=== PATIENT | female | born 1955 | race Caucasian/White ===

== ENCOUNTER 2020-03-01 06:04 | Outpatient (REF) | payer OTHER, SELFPAY ==
[2020-03-01 11:28] LABS: MANUAL DIFF FLAG NO
[2020-03-01 11:41] LABS: Basophils Absolute Auto 0.1 X10*3/uL (0.0-0.2); Basophils Percent Auto 0.7 % (0-2); Eosinophils Absolute Auto 0.3 X10*3/uL (0.0-0.4); Eosinophils Percent Auto 3.8 % (0-4); Hematocrit 39.1 % (37-47); Hemoglobin 12.6 g/dl (12.0-16.0); Imm Gran Abs Auto 0.01 X10*3/uL (0.00-0.03); Imm Gran Pct Auto 0.1 % (0.0-0.4); Lymphocytes Absolute Auto 2.4 X10*3/uL (1.2-4.9); Lymphocytes Percent Auto 32.3 % (20-40); Mean Corpuscular HGB Conc 32.2 g/dl (31.0-35.0); Mean Corpuscular Hemoglobin 29.6 pg (27.0-33.0); Mean Platelet Volume 11.2 fL (9.4-12.3); Monocytes Absolute Auto 0.6 X10*3/uL (0.1-1.2); Monocytes Percent Auto 8.2 % (2-11); Neutrophils Percent Auto 54.9 % (45-73); Platelet Count 252 X10*3/uL (160-400); Red Blood Count 4.25 X10*6/uL (4.20-5.50); Red Cell Distribution Width 13.7 % (11.0-16.0); White Blood Count 7.3 X10*3/uL (4.8-10.8)
[2020-03-01 11:55] LABS: Anion Gap 12 (12-20); Blood Urea Nitrogen 24 mg/dL (9-16); Carbon Dioxide 31 mmol/L (22-29); Chloride 102 mmol/L (96-108); Cholesterol 193 mg/dL; Estimated Glomerular Filt Rate > 60; Glucose Fasting 91 mg/dL (60-99); HDL Cholesterol 63 mg/dL; LDL Cholesterol Calculated 116 mg/dl; Potassium 3.8 mmol/l (3.3-5.1); Sodium 141 mmol/L (135-145); Triglycerides 70 mg/dL
[2020-03-01 12:22] LABS: TSH reflex Free T4 0.91 mIU/mL (0.32-4.0)
== END 2020-03-01 06:05 | disposition home or self-care (01) ==
LOC: HO.HMGCLDS 06:04
PROVIDERS: PCP Internal Medicine; Visit Provider Internal Medicine
DX: N32.9 Bladder disorder, unspecified (principal); E03.8 Other specified hypothyroidism; M19.90 Unspecified osteoarthritis, unspecified site; E78.9 Disorder of lipoprotein metabolism, unspecified; I10 Essential (primary) hypertension
CPT/HCPCS: 36415; 80048; 80061; 84443; 85025

== ENCOUNTER 2020-03-08 11:34 | Outpatient (REF) | payer OTHER, SELFPAY ==
[2020-03-08 11:55] LABS: COVID-19 Test Negative (Negative)
== END 2020-03-08 11:35 | disposition home or self-care (01) ==
LOC: HO.EMPCOV 11:34
PROVIDERS: PCP Internal Medicine; Visit Provider Internal Medicine
DX: Z20.828 Contact with and (suspected) exposure to other viral communicable diseases (principal)
CPT/HCPCS: 87635; C9803

== ENCOUNTER 2020-07-24 08:53 | Outpatient (REF) | payer OTHER, SELFPAY ==
--- NOTE | ~2020-07-24 | XR_ITS ---
EXAMINATION: XR ELBOW, RIGHT CLINICAL INFORMATION: Lateral epicondylitis COMPARISON: None TECHNIQUE: AP, lateral, and oblique views of the right elbow. FINDINGS: Bone alignment is normal. No fracture or dislocation is seen. The joint spaces are normal. Soft tissues are normal. XR/XR elbow RT min 3V IMPRESSION: Normal right elbow.
== END 2020-07-24 08:54 | disposition home or self-care (01) ==
LOC: HO.XRAY 08:53
PROVIDERS: PCP Internal Medicine; Visit Provider Physician Assistant Medical
DX: M77.10 Lateral epicondylitis, unspecified elbow (principal)
CPT/HCPCS: 73080

== ENCOUNTER 2020-08-23 11:30 | Outpatient (RCR) | payer OTHER, SELFPAY ==
--- NOTE | 2020-07-27 09:13 | MHC.OT.OEV ---
[address] [phone] F: [phone] Occupational Therapy Evaluation Diagnosis: Right Lateral Epicondylitis Date of Onset: 06/29/20 Attending Provider: Ct Veras PA-C Prescribed Treatment: Eval and Treat History of Current Condition: Pt has developed pain in right lateral and dorsal forearm over the past few weeks. Seen in work connection and referred to OT. X-ray (-) for acute changes. 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 dog, reading, crocheting Living Situation, Family and/or Social Support: Lives with her (retired) Current Level of Function and Occupation Self Care, Employment, Leisure: Still working full duty Pain with spraying hairspray, turning a door knob, lifting a coffee mug Sleep: Occasional pain w/ sleep Pain Assessment Pain Score: 1-4 Pain Scale Used: Numeric (0 - 10) Pain Location and Description: Tenderness to palpate right lateral epicondyle and dorsal forearm over radial tunnel Aggravating Factors: Lifting objects, turning doorway Alleviating Factors: Heat in the morning Ice in the evening Nerve assessment Ulnar Nerve: WFL Median Nerve: WFL Radial Nerve: WFL Comments: Sensory Assessment Temperature: WFL Light Touch: WFL Proprioception: WFL Vibration: Comments: Edema Assessment Upper Extremity: WNL Lower Extremity: Comments: Dexterity Assessment Dexterity: WFL Comments: Special Tests Comments: No significant change in pain with middle finger extension test AROM(PROM) Strength Cervical Cervical Flexion: Cervical Extension: Cervical Lateral Flexion: Cervical Rotation: Comments: WFL Shoulder Flexion: Extension: Abduction: Internal Rotation: External Rotation: Comments: WFL Flexion: Extension: Abduction: Internal Rotation: External Rotation: Comments: Elbow Flexion: Extension: Pronation: Supination: Comments: WFL Flexion: Extension: Pronation: Supination: Comments: Wrist Flexion: Extension: Ulnar Deviation: Radial Deviation: Comments: WFL Flexion: Extension: Ulnar Deviation: Radial Deviation: Comments: Thumb Thumb CMC Flexion: Thumb MCP Flexion: Thumb IP Flexion: Radial Abduction: Palmar Abduction: Stephenson (Kapandji 0-10): Comments: WFL Digits Index MCP: PIP: DIP: Long MCP: PIP: DIP: Ring MCP: PIP: DIP: Small MCP: PIP: DIP: Comments: WFL Gross Grasp: R 20 L 40 Lateral Pinch: R 2 L 3 Two-Point Pinch: R 1 L 2 Three-Jaw Leoncio: R 2 L 3 Comments: Right gross grasp 20lb w/ elbow flex 15lb w/ elbow ext and some pain in lat epi Patient Education Primary Language: Estonian 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 Patient demonstrates Patient verbalizes Barriers to Learning: None Readiness for Learning: Accepting Who was educated? Patient Comments: Plan of Care Assessment: Megan presents with persistent pain in right lateral elbow and dorsal forearm for the past few weeks. 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 She will benefit from cont'd therapy services for decreasing pain, increasing strength and general education on joint protection and activity modification. 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
--- NOTE | 2020-08-23 11:59 | MHC.OT.DC ---
[address] [phone] F: [phone] Occupational Therapy Discharge Note Provider: Dr Andujar Diagnosis: Right Lateral Epicondylitis Date of Surgery: Date of Evaluation: 07/27/20 Date of Discharge: 08/23/20 Treatments to Date: 9 Cancellations to Date: No Shows to Date: Discharge Status: Independent with HEP Recommend MD Follow-up Discharge Summary: Megan has progressed w/ right lateral epicondyle pain and had good understanding of HEP, joint protection and activity modification. Still w/ occasional pain, weakness and reporting moderate functional limitations. She may benefit from cortisone infection. Electronically Signed By: Vira Ojeda OTR/L Reviewed/agree with student documentation: N/A Therapist: Please Sign and return to therapist, thank you for your referral.
== END 2020-08-23 13:49 | disposition other institution (70) ==
LOC: HO.OT 11:30
PROVIDERS: PCP Internal Medicine; Visit Provider Physician Assistant Medical
DX: M77.10 Lateral epicondylitis, unspecified elbow (principal)
CPT/HCPCS: 97033; 97035; 97110; 97140; 97165

== ENCOUNTER 2020-08-24 06:01 | Outpatient (REF) | payer OTHER, SELFPAY ==
[2020-08-24 07:02] LABS: MANUAL DIFF FLAG NO
[2020-08-24 07:05] LABS: Basophils Absolute Auto 0.1 X10*3/uL (0.0-0.2); Basophils Percent Auto 0.6 % (0-2); Eosinophils Absolute Auto 0.3 X10*3/uL (0.0-0.4); Eosinophils Percent Auto 3.3 % (0-4); Hemoglobin 12.7 g/dl (12.0-16.0); Imm Gran Abs Auto 0.02 X10*3/uL (0.00-0.03); Imm Gran Pct Auto 0.3 % (0.0-0.4); Lymphocytes Absolute Auto 2.3 X10*3/uL (1.2-4.9); Lymphocytes Percent Auto 29.8 % (20-40); Mean Corpuscular HGB Conc 32.6 g/dl (31.0-35.0); Mean Corpuscular Hemoglobin 29.5 pg (27.0-33.0); Mean Corpuscular Volume 90.7 fL (80-98); Mean Platelet Volume 11.1 fL (9.4-12.3); Monocytes Absolute Auto 0.6 X10*3/uL (0.1-1.2); Monocytes Percent Auto 8.1 % (2-11); Neutrophils Absolute Auto 4.5 X10*3/uL (2.0-8.3); Neutrophils Percent Auto 57.9 % (45-73); Platelet Count 267 X10*3/uL (160-400); Red Cell Distribution Width 13.6 % (11.0-16.0); White Blood Count 7.8 X10*3/uL (4.8-10.8)
[2020-08-24 07:43] LABS: Alanine Aminotransferase 17 U/L (0-31); Albumin Level 4.2 g/dL (3.5-5.0); Alkaline Phosphatase 50 U/L (39-117); Anion Gap 13 (12-20); Aspartate Amino Transferase 20 U/L (5-31); Bilirubin Total 0.5 mg/dL (0.0-1.0); Blood Urea Nitrogen 19 mg/dL (9-16); Calcium 9.5 mg/dL (8.4-10.2); Carbon Dioxide 30 mmol/L (22-29); Chloride 104 mmol/L (96-108); Cholesterol 197 mg/dL; Estimated Glomerular Filt Rate > 60; Glucose Fasting 92 mg/dL (60-99); HDL Cholesterol 62 mg/dL; LDL Cholesterol Calculated 120 mg/dl; Potassium 3.7 mmol/L (3.3-5.1); Sodium 143 mmol/L (135-145); Total Protein 6.9 g/dL (6.5-8.0); Triglycerides 78 mg/dL
[2020-08-25 06:21] LABS: Lyme Abs Screen <0.90 index
== END 2020-08-24 06:02 | disposition home or self-care (01) ==
LOC: HO.LAB 06:01
PROVIDERS: PCP Internal Medicine; Visit Provider Internal Medicine
DX: I10 Essential (primary) hypertension (principal); E03.8 Other specified hypothyroidism; E78.9 Disorder of lipoprotein metabolism, unspecified; M19.90 Unspecified osteoarthritis, unspecified site; T14.8XXA Other injury of unspecified body region, initial encounter; W57.XXXA Bitten or stung by nonvenomous insect and other nonvenomous arthropods, initial encounter; Y93.9 Activity, unspecified; Y92.9 Unspecified place or not applicable; Y99.9 Unspecified external cause status
CPT/HCPCS: 36415; 80053; 80061; 85025; 86617; 86618

== ENCOUNTER → 2020-09-19 08:18 | Outpatient (BNVA) | payer OTHER, SELFPAY | PROVIDERS: PCP Internal Medicine; Visit Provider Orthopaedic Surgery | DX: M77.11 Lateral epicondylitis, right elbow (principal) | CPT/HCPCS: 20550; 20605; J1020; J1040 ==

== ENCOUNTER 2020-10-05 13:12 | Emergency (ER) | payer OTHER, SELFPAY ==
--- NOTE | ~2020-10-05 | XR_ITS ---
EXAMINATION: XR CHEST CLINICAL INFORMATION: Palpitations COMPARISON: Chest radiographs 06/29/2010 TECHNIQUE: Portable upright AP view of the chest was obtained. FINDINGS: The lungs are clear. The vascularity is normal. The heart is normal in size. There is no vascular congestion, airspace consolidation, or effusion. The hilar and mediastinal contours are normal. No visible acute bony abnormality. Benign nodular contour to right anterior first costochondral junction is stable from prior radiograph 2011. XR/XR chest 1V IMPRESSION: Unremarkable examination.
[2020-10-05 13:23] VITALS: BP 149/78; PULSE 55; RESP 16; TEMP 36.9; O2SAT 99; BMI 31.3
--- NOTE | 2020-10-05 14:12 | ECG_ITS ---
Test Reason : ARM PAIN Blood Pressure : / mmHG Vent. Rate : 047 BPM Atrial Rate : 047 BPM P-R Int : 178 ms QRS Dur : 108 ms QT Int : 474 ms P-R-T Axes : 051 000 004 degrees QTc Int : 419 ms Sinus bradycardia Incomplete right bundle branch block Nonspecific ST and T wave abnormality Abnormal ECG When compared with ECG of 26-DEC-2008 07:12, Nonspecific T wave abnormality, worse in Anterior leads Referred By: Tracy Johnston Electronically Signed By:NEGAR SWARTZ
--- NOTE | 2020-10-05 14:24 | ED_ITS ---
HPI - Arrhythmia/Palpitations General Chief Complaint: Arrhythmia/Palpitations Stated Complaint: palpitations, lt arm pain Time Seen by Provider: 10/05/20 14:11 Source: patient Mode of arrival: ambulatory Limitations: no limitations History of Present Illness HPI narrative: 65 years old female came in from urgent care walk-in clinic for further evaluation of feeling palpitation. Patient felt palpitation 1 time last night that lasted for 5 minutes, also felt choking with the palpitation, symptoms lasted for about 5 minutes, patient declined chest pain or difficulty breathing, patient remained symptoms free since last night. Patient also complained of left arm pain intermittently feels like a dull aching pain not associated with any chest pain, pain in the left mostly when she moves her head. Related Data Home Medications Medication Instructions Recorded Confirmed acetaminophen 500 mg tablet 1,000 mg PO Q6H PRN 02/22/20 10/05/20 rosuvastatin 20 mg tablet 20 mg PO BEDTIME 07/22/20 10/05/20 Previous Rx's Medication Instructions Recorded celecoxib 200 mg capsule 200 mg PO DAILY 90 Days #90 cap 06/20/20 arm brace #1 ea 07/22/20 coenzyme Q10 200 mg capsule 200 mg PO DAILY #90 cap 08/07/20 levothyroxine 150 mcg tablet 150 mcg PO DAILY #90 tab 08/07/20 fluvastatin 20 mg capsule 20 mg PO BEDTIME #90 cap 08/18/20 atenolol 50 mg-chlorthalidone 25 1 tab PO DAILY 90 Days #90 tab 09/11/20 mg tablet Allergies Allergy/AdvReac Type Severity Reaction Status Date / Time rosuvastatin AdvReac Unknown muscles Verified 10/05/20 13:22 cramps Review of Systems Review of Systems: All other systems are reviewed and are negative Constitutional: Reports as per HPI and Reports no additional constitutional complaints Eyes: Reports as per HPI and Reports no additional eye complaints Reports system reviewed and no additional complaints, except as documented Cardiovascular: Reports as per HPI and Reports no additional cardiovascular complaints Respiratory: Reports as per HPI and Reports no additional respiratory complaints Gastrointestinal: Reports as per HPI and Reports no additional gastrointestinal complaints Genitourinary: Reports no additional female genitourinary complaints Musculoskeletal: Reports no additional musculoskeletal complaints Skin/Breast: Reports system reviewed and no additional complaints, except as docu Psychiatric: Reports no additional psychiatric complaints Endocrine: Reports no additional endocrine complaints Hematologic/Lymphatic: Reports no additional hematologic/lymphatic complaints Allergic/Immunologic: Reports no additional allergic/immunologic complaints Reports system reviewed and no additional complaints, except as documented and Reports Abnormal speech present [facility] Past Medical History Medical History Arthrosis Bladder disorder Hypertension, essential Lipid disorder Other specified hypothyroidism Surgical History History of bladder surgery History of tonsillectomy Family History Family History Father HTN (hypertension) CVD (cardiovascular disease) Myocardial infarction Mother HTN (hypertension) Acute pancreatitis Brother No problems noted. Sister No problems noted. Sister No problems noted. Daughter No problems noted. 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 Blood pressure normal. Heart rate normal. Respiration rate normal. Temperature normal. Oxygen saturation normal. Appearance: Alert. Oriented X3. No acute distress. Head: Normal external exam. Normocephalic. Atraumatic. No Kuo signs noted. No raccoon eyes noted Eyes: PERRLA. EOMI. Conjunctiva and sclera normal. Eyelids normal. ENT: TM's Normal. Pharynx normal. Uvula midline. Moist mucous membranes. No trismus noted. No drooling noted. No muffled voice noted. Neck: Normal inspection. Neck supple. FROM. No adenopathy. Thyroid Normal. No meningeal signs. No neck mass noted. CVS: Normal heart rate and rhythm. Heart sound normal. No murmurs noted. Pulses normal throughout. Respiratory: No respiratory distress. Painless inspiration. Breath sounds normal. No wheezes/rales/rhonchi noted. Chest nontender. No accessory muscle usage noted or decreased air movement noted. Abdomen: Soft and nontender. Bowel sounds normal in all 4 quadrants. No distention noted. No organomegaly noted. No visible injury noted. Back: No CVA tenderness. Full range of motion noted. Skin: Skin warm and dry. Normal skin color. Normal skin turgor. No rashes/lesions/lacerations noted. Extremities: No lower extremity edema. Extremities exhibit normal range of motion. Extremities nontender. Neuro: Oriented X 3. No motor deficit. No sensory deficit. Reflexes normal. Course Course Course Narrative: 65 years old female came in for 1 time palpitation last time with no chest pain and shocking feeling with this episode of palpitation. Patient now is symptoms free since last night, EKG showed bradycardia patient has no symptoms of syncope or dizziness ( patient take atenolol 50 mg for hypertension). We assured the patient discharged to with PCP. MDM - Arrhythmia/Palpitations Lab Data Attestation: I reviewed the patient's lab results. Result diagrams: 10/05/20 14:34 10/05/20 14:34 Labs: Lab Results 10/05/20 10/05/20 10/05/20 Range/Units 14:34 14:34 14:34 WBC 7.0 (4.8-10.8) X10*3/uL RBC 4.28 (4.20-5.50) X10*6/uL Hgb 12.8 (12.0-16.0) g/dl Hct 38.3 (37-47) % MCV 89.5 (80-98) fL MCH 29.9 (27.0-33.0) pg MCHC 33.4 (31.0-35.0) g/dl RDW 13.7 (11.0-16.0) % Plt Count 247 (160-400) X10*3/uL MPV 10.7 (9.4-12.3) fL Immature Gran % (Auto) 0.1 (0.0-0.4) % Neut % (Auto) 55.2 (45-73) % Lymph % (Auto) 33.9 (20-40) % [place] % (Auto) 8.3 (2-11) % Eos % (Auto) 1.9 (0-4) % Baso % (Auto) 0.6 (0-2) % Lymph # (Auto) 2.4 (1.2-4.9) X10*3/uL [place] # (Auto) 0.6 (0.1-1.2) X10*3/uL Eos # (Auto) 0.1 (0.0-0.4) X10*3/uL Baso # (Auto) 0.0 (0.0-0.2) X10*3/uL Abs Immat Gran (auto) 0.01 (0.00-0.03) X10*3/uL Absolute Neuts (auto) 3.9 (2.0-8.3) X10*3/uL Absolute Nucleated RBC 0.000 (0.0-0.012) X10*3/uL Nucleated RBC % (auto) 0.0 (0.0-0.2) /100WBC Sodium 141 (135-145) mmol/L Potassium 3.6 (3.3-5.1) mmol/L Chloride 103 (96-108) mmol/L Carbon Dioxide 26 (22-29) mmol/L Anion Gap 16 (12-20) BUN 19 H (9-16) mg/dL Creatinine 0.75 (0.5-1.4) mg/dL Estim Creat Clear Calc 86.4 Estimated GFR > 60 Random Glucose 93 (60-115) mg/dL Calcium 10.3 H D (8.4-10.2) mg/dL Magnesium 1.9 (1.6-2.6) mg/dL Total Bilirubin 0.5 (0.0-1.0) mg/dL Direct Bilirubin 0.2 (0.0-0.5) mg/dL AST 20 (5-31) U/L ALT 15 (0-31) U/L Alkaline Phosphatase 49 (39-117) U/L Troponin I High Sens 4.5 (<3.5-17.0) ng/L B-Natriuretic Peptide 106 H (<100) pg/mL Total Protein 7.0 (6.5-8.0) g/dL Albumin 4.2 (3.5-5.0) g/dL Lipase 35 (8-78) U/L Imaging Data Chest x-ray: Radiologist's impression: Unremarkable examination. ECG Data Interpretation: Sinus bradycardia at 47 beats per minutes, incomplete right bundle branch block, slight prolongation of QRS, nonspecific T-wave inversions. Discharge Plan Discharge Clinical Impression: Palpitation, Bradycardia Patient Disposition: Home, Self-Care Instructions: Heart Palpitations (ED) Prescriptions: No Action acetaminophen [Tylenol Extra Strength] 500 mg tablet 1,000 mg PO Q6H PRNRF: 0 coenzyme Q10 200 mg capsule 200 mg PO DAILY Qty: 90 RF: 2 levothyroxine 150 mcg tablet 150 mcg PO DAILY Qty: 90 RF: 3 fluvastatin 20 mg capsule 20 mg PO BEDTIME Qty: 90 RF: 1 atenolol-chlorthalidone 50-25 mg tablet 1 tab PO DAILY 90 Days Qty: 90 RF: 1 celecoxib 200 mg capsule 200 mg PO DAILY 90 Days Qty: 90 RF: 0 rosuvastatin 20 mg tablet 20 mg PO BEDTIME RF: 0 (DME) Elbow Strap Misc See Rx Instructions .ROUTE .MEDSUPPLY Qty: 1 RF: 0 Referrals: Sofya Andujar MD [Primary Care Provider] - 2 days
[2020-10-05 14:36] VITALS: PULSE 51; RESP 17; O2SAT 98
[2020-10-05 14:40] VITALS: PULSE 49
[2020-10-05 14:44] VITALS: PULSE 49
[2020-10-05 14:49] LABS: MANUAL DIFF FLAG NO
[2020-10-05 14:51] LABS: Basophils Percent Auto 0.6 % (0-2); Eosinophils Absolute Auto 0.1 X10*3/uL (0.0-0.4); Eosinophils Percent Auto 1.9 % (0-4); Hematocrit 38.3 % (37-47); Hemoglobin 12.8 g/dl (12.0-16.0); Imm Gran Abs Auto 0.01 X10*3/uL (0.00-0.03); Imm Gran Pct Auto 0.1 % (0.0-0.4); Lymphocytes Absolute Auto 2.4 X10*3/uL (1.2-4.9); Lymphocytes Percent Auto 33.9 % (20-40); Mean Corpuscular HGB Conc 33.4 g/dl (31.0-35.0); Mean Corpuscular Hemoglobin 29.9 pg (27.0-33.0); Mean Corpuscular Volume 89.5 fL (80-98); Mean Platelet Volume 10.7 fL (9.4-12.3); Monocytes Absolute Auto 0.6 X10*3/uL (0.1-1.2); Monocytes Percent Auto 8.3 % (2-11); Neutrophils Absolute Auto 3.9 X10*3/uL (2.0-8.3); Neutrophils Percent Auto 55.2 % (45-73); Platelet Count 247 X10*3/uL (160-400); Red Blood Count 4.28 X10*6/uL (4.20-5.50); Red Cell Distribution Width 13.7 % (11.0-16.0)
[2020-10-05 15:20] LABS: Alanine Aminotransferase 15 U/L (0-31); Albumin Level 4.2 g/dL (3.5-5.0); Alkaline Phosphatase 49 U/L (39-117); Anion Gap 16 (12-20); Aspartate Amino Transferase 20 U/L (5-31); Bilirubin Direct 0.2 mg/dL (0.0-0.5); Bilirubin Total 0.5 mg/dL (0.0-1.0); Blood Urea Nitrogen 19 mg/dL (9-16); Calcium 10.3 mg/dL (8.4-10.2); Carbon Dioxide 26 mmol/L (22-29); Chloride 103 mmol/L (96-108); Creatinine Clr Calc Pharmacy 86.4; Estimated Glomerular Filt Rate > 60; Glucose Random 93 mg/dL (60-115); Lipase 35 U/L (8-78); Magnesium 1.9 mg/dL (1.6-2.6); Potassium 3.6 mmol/L (3.3-5.1); Sodium 141 mmol/L (135-145)
[2020-10-05 15:25] LABS: B Type Natriuretic Peptide 106 pg/mL (<100); Troponin-I High Sensitivity 4.5 ng/L (<3.5-17.0)
[2020-10-05 15:40] VITALS: BP 131/60; PULSE 49; RESP 17; O2SAT 98
== END 2020-10-05 15:55 | disposition home or self-care (01) ==
PROVIDERS: Emergency Provider Emergency Medicine; PCP Internal Medicine
DX: R00.2 Palpitations (principal); R00.1 Bradycardia, unspecified; I10 Essential (primary) hypertension; E78.5 Hyperlipidemia, unspecified; Z79.02 Long term (current) use of antithrombotics/antiplatelets; Z79.899 Other long term (current) drug therapy
CPT/HCPCS: 36415; 71045; 80048; 80076; 83690; 83735; 83880; 84484; 85025; 93005; 99283; 99285

== ENCOUNTER 2021-03-29 06:44 | Outpatient (REF) | payer MEDICARE, SELFPAY ==
[2021-03-29 11:49] LABS: Alanine Aminotransferase 29 U/L (0-31); Albumin Level 4.1 g/dL (3.5-5.0); Alkaline Phosphatase 60 U/L (39-117); Anion Gap 10 (12-20); Aspartate Amino Transferase 25 U/L (5-31); Bilirubin Total 0.6 mg/dL (0.0-1.0); Blood Urea Nitrogen 17 mg/dL (9-16); Calcium 9.2 mg/dL (8.4-10.2); Carbon Dioxide 27 mmol/L (22-29); Chloride 107 mmol/L (96-108); Cholesterol 220 mg/dL; Estimated Glomerular Filt Rate > 60; Glucose Fasting 90 mg/dL (60-99); HDL Cholesterol 64 mg/dL; LDL Cholesterol Calculated 140 mg/dl; Potassium 4.4 mmol/L (3.3-5.1); Sodium 140 mmol/L (135-145); Total Protein 7.1 g/dL (6.5-8.0); Triglycerides 83 mg/dL
== END 2021-03-29 06:45 | disposition home or self-care (01) ==
LOC: HO.HMGCLDS 06:44
PROVIDERS: PCP Internal Medicine; Visit Provider Internal Medicine
DX: E03.8 Other specified hypothyroidism (principal); E78.9 Disorder of lipoprotein metabolism, unspecified; I10 Essential (primary) hypertension
CPT/HCPCS: 36415; 80053; 80061; 84443

== ENCOUNTER → 2021-04-13 11:41 | Outpatient (BNVA) | payer MEDICARE, SELFPAY | PROVIDERS: PCP Internal Medicine; Visit Provider Orthopaedic Surgery | DX: M77.11 Lateral epicondylitis, right elbow (principal); M25.562 Pain in left knee | CPT/HCPCS: 20551; 20610; 99212; J1100 ==

== ENCOUNTER 2021-07-14 09:29 | Emergency (ER) | payer MEDICARE, SELFPAY ==
--- NOTE | ~2021-07-14 | XR_ITS ---
EXAMINATION: XR KNEE, RIGHT CLINICAL INFORMATION: Knee pain COMPARISON: None TECHNIQUE: Four views of the right knee. FINDINGS: Bones have normal alignment at the right knee. No fracture, subluxation or joint effusion. Mild narrowing of joint space and marginal osteophyte formation of medial tibiofemoral compartment. Osteophytes also observed at the mildly degenerated patellofemoral and lateral tibiofemoral compartments. XR/XR knee RT 4V IMPRESSION: * No acute findings. No fracture or malalignment at the right knee. * Mild tricompartmental osteoarthritis.
[2021-07-14 09:34] VITALS: BP 197/94; PULSE 79; RESP 18; TEMP 36.8; O2SAT 98; BMI 34.4
--- NOTE | 2021-07-14 09:52 | ED.EXTPRO ---
HPI - Extremity Problem General Chief complaint: Extremity Problem Stated complaint: r knee pain no inj Time Seen by Provider: 07/14/21 09:44 Source: patient Mode of arrival: ambulatory History of Present Illness HPI Narrative: 65-year-old female with a past medical history of HLD, HTN, hypothyroid, presenting to the ED complaining of atraumatic right knee pain x1 week. Reports pain worse with movement, bending, and ambulation. Denies known injury/trauma or fall/twisting injury. Denies numbness, tingling, weakness, fever, chills MD Complaint: extremity pain Onset (ago): week(s) Pain Consistency: constant Location: right Related Data Home Medications Medication Instructions Recorded Confirmed acetaminophen 500 mg tablet 1,000 mg PO Q6H PRN 02/22/20 03/27/21 (Tylenol Extra Strength) Previous Rx's Medication Instructions Recorded arm brace (Elbow Strap) #1 ea 07/22/20 coenzyme Q10 200 mg capsule 200 mg PO DAILY #90 cap 08/07/20 fluvastatin 20 mg capsule 20 mg PO BEDTIME #90 cap 02/02/21 levothyroxine 150 mcg tablet 150 mcg PO DAILY #90 tab 02/02/21 losartan 50 mg tablet 50 mg PO DAILY 90 Days #90 tab 02/02/21 celecoxib 200 mg capsule (Celebrex) 200 mg PO ONCE 90 Days #90 cap 03/27/21 hydrocodone 5 mg-acetaminophen 325 1 tab PO Q8H PRN 3 Days #7 tab 07/14/21 mg tablet Allergies Allergy/AdvReac Type Severity Reaction Status Date / Time rosuvastatin AdvReac Unknown muscles Verified 07/14/21 09:37 cramps Review of Systems Review of Systems: Constitutional: No Fever, No Chills ENT/Mouth: No Ear Pain, No Nasal Congestion, No sore throat, No Rhinorrhea, No Swallowing Difficulty Cardiovascular: No Chest Pain, No SOB Respiratory: No Cough, No Sputum Gastrointestinal: No Nausea, No Abdominal pain Genitourinary: No Dysuria, No Urinary Frequency, No Hematuria, No Urgency, No Flank Pain Musculoskeletal: + joint pain, No Myalgias, No Joint Swelling Skin: No Skin Lesions, No rash Neuro: No Weakness, No Numbness, No Paresthesias Yes all other systems are reviewed and are negative PMFSH Past Medical History Attestation statement: The following information was validated with the patient. Medical History Arthrosis Bladder disorder Hypertension, essential Lipid disorder Other specified hypothyroidism Surgical History History of bladder surgery History of tonsillectomy Family History Family History Father HTN (hypertension) CVD (cardiovascular disease) Myocardial infarction Mother HTN (hypertension) Acute pancreatitis Brother No problems noted. Sister No problems noted. Sister No problems noted. Daughter No problems noted. 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 Physical Exam Vital Signs: Vital Signs: Last Vital Signs Temp 98.2 F 07/14/21 09:34 Pulse 79 07/14/21 09:34 Resp 18 07/14/21 10:40 BP 197/94 H 07/14/21 09:34 Pulse Ox 98 07/14/21 09:34 BMI result Body Mass Index 34.4 Const: General: cooperative and healthy appearing Orientation/consciousness: patient oriented x3 Limitations: no limitations HEENT: Head: Yes normal to inspection Ears: hearing grossly normal bilaterally General nose exam: Normal external nose present Face and sinus: Yes normal facial exam Eyes: General: appearance normal, both eyes and all related structures EOM: EOMs intact bilaterally Neck: Neck: Yes normal visual inspection Resp: Effort & Inspection: normal respiratory effort and no respiratory distress Auscultation: clear to auscultation bilaterally Cardio: Rate: regular rate Heart sounds: S1 normal heart sound present and S2 normal heart sound present Peripheral pulses: dorsalis pedis present Skin: Rashes: no rashes Wounds: no wounds Neuro: General: patient oriented x3 Gait exam (Neuro): Normal gait present Extrem: Other: Right knee without noted deformity, no swelling. No tenderness appreciated without moving knee. Tenderness elicited on flexion and varus stress. Neurovascular intact distally. Flexion limited secondary to pain. Extension intact. General: Yes normal to inspection Course Course Course Narrative: XR knee RT 4V IMPRESSION: *? No acute findings. No fracture or malalignment at the right knee. *? Mild tricompartmental osteoarthritis. ? >> results discussed with patient. Knee immobilizer applied for comfort and stability. Patient recommended to follow-up with orthopedics MDM - Extremity (Nontraumatic) MDM Narrative Medical decision making narrative: 65-year-old female with a past medical history of HLD, HTN, hypothyroid, presenting to the ED complaining of atraumatic right knee pain x1 week. On exam vital signs stable, NAD/nontoxic, physical exam as above. Concern for meniscal vs tendon or ligamental injury. Lower concern for fracture Plan: X-rays, IM Toradol, Tylenol Medical Records Attestation: I reviewed the patient's medical records. Lab Data Attestation: I reviewed the patient's lab results. Discharge Plan Discharge Clinical Impression: Acute knee pain Qualifiers: Laterality: right Qualified Code(s): M25.561 - Pain in right knee Patient Disposition: Home, Self-Care Instructions: Arthralgia (ED) Additional Instructions: Your x-ray does not show any acute findings, no fracture. Does show some osteoarthritis. Wear Luis Carlos wrap at home for comfort and stability. Continue taking Celecoxib which as an anti-inflammatory / pain medication, take with food In addition take Tylenol at home You need to follow-up with the forestry biology specialist wear Luis Carlos wrap for comfort and stability [place] is an opiate pain medication, take only when pain is severe for the next [address], drink alcohol, or operate machinery while taking. Be aware [place] has Tylenol mixed in, do not exceed 4 g of Tylenol in 1 day If symptoms persist or worsen, pain becomes unbearable, you developed weakness return to the ED Prescriptions: New hydrocodone-acetaminophen 5-325 mg tablet 1 tab PO Q8H PRN (Reason: pain, severe) 3 Days Qty: 7 0RF No Action acetaminophen [Tylenol Extra Strength] 500 mg tablet 1,000 mg PO Q6H PRN0RF coenzyme Q10 200 mg capsule 200 mg PO DAILY Qty: 90 2RF losartan 50 mg tablet 50 mg PO DAILY 90 Days Qty: 90 1RF levothyroxine 150 mcg tablet 150 mcg PO DAILY Qty: 90 3RF fluvastatin 20 mg capsule 20 mg PO BEDTIME Qty: 90 1RF (DME) Elbow Strap Misc See Rx Instructions .ROUTE .MEDSUPPLY Qty: 1 0RF Rx Instructions: As directed celecoxib [Celebrex] 200 mg capsule 200 mg PO ONCE 90 Days Qty: 90 1RF Referrals: Gracie Fisher PA-C [Physician [place] Machine Operator] - 5 days Interventions: ED Discharge Assessment Last Done: 07/14/21 10:41
[2021-07-14] MEDS: Acetaminophen 325 MG TABLET 650 MG PO (09:53)
[2021-07-14] MEDS: Ketorolac Tromethamine 30 MG/ML VIAL IM (09:54)
[2021-07-14 10:40] VITALS: RESP 18
== END 2021-07-14 10:55 | disposition home or self-care (01) ==
PROVIDERS: Emergency Provider Emergency Medicine; PCP Internal Medicine
DX: M25.561 Pain in right knee (principal); I10 Essential (primary) hypertension
CPT/HCPCS: 73564; 96372; 99284; J1885

== ENCOUNTER 2021-07-27 06:01 | Outpatient (REF) | payer MEDICARE, SELFPAY ==
[2021-07-27 11:10] LABS: MANUAL DIFF FLAG NO
[2021-07-27 11:30] LABS: Basophils Absolute Auto 0.1 X10*3/uL (0.0-0.2); Basophils Percent Auto 0.8 % (0-2); Eosinophils Absolute Auto 0.2 X10*3/uL (0.0-0.4); Eosinophils Percent Auto 3.9 % (0-4); Hematocrit 40.5 % (37.0-47.0); Imm Gran Abs Auto 0.01 X10*3/uL (0.00-0.03); Imm Gran Pct Auto 0.2 % (0.0-0.4); Lymphocytes Absolute Auto 1.7 X10*3/uL (1.2-4.9); Lymphocytes Percent Auto 27.8 % (20-40); Mean Corpuscular HGB Conc 32.1 g/dl (31.0-35.0); Mean Corpuscular Hemoglobin 28.8 pg (27.0-33.0); Mean Corpuscular Volume 89.8 fL (80.0-98.0); Mean Platelet Volume 11.1 fL (9.4-12.3); Monocytes Absolute Auto 0.5 X10*3/uL (0.1-1.2); Monocytes Percent Auto 7.7 % (2-11); Neutrophils Absolute Auto 3.5 x10*3/uL (2.0-8.3); Neutrophils Percent Auto 59.6 % (45-73); Platelet Count 278 X10*3/uL (160-400); Red Blood Count 4.51 X10*6/uL (4.20-5.50); Red Cell Distribution Width 13.8 % (11.0-16.0); White Blood Count 5.9 X10*3/uL (4.8-10.8)
[2021-07-27 11:59] LABS: Alanine Aminotransferase 15 U/L (0-31); Albumin Level 4.2 g/dL (3.5-5.0); Alkaline Phosphatase 61 U/L (39-117); Anion Gap 10 (12-20); Aspartate Amino Transferase 18 U/L (5-31); Bilirubin Total 0.6 mg/dL (0.0-1.0); Blood Urea Nitrogen 16 mg/dL (9-16); Calcium 9.6 mg/dL (8.4-10.2); Carbon Dioxide 28 mmol/L (22-29); Chloride 106 mmol/L (96-108); Cholesterol 207 mg/dL; Estimated Glomerular Filt Rate > 60; Glucose Fasting 88 mg/dL (60-99); HDL Cholesterol 59 mg/dL; LDL Cholesterol Calculated 125 mg/dl; Potassium 3.9 mmol/L (3.3-5.1); Sodium 140 mmol/L (135-145); Total Protein 7.1 g/dL (6.5-8.0); Triglycerides 118 mg/dL
[2021-07-27 12:59] LABS: TSH reflex Free T4 0.61 uIU/mL (0.32-4.0)
[2021-08-01 11:07] LABS: Vitamin D 25-OH, D2 <4 ng/mL; Vitamin D 25-OH, D3 27 ng/mL; Vitamin D 25-OH, Total 27 ng/mL (30-100)
== END 2021-07-27 06:02 | disposition home or self-care (01) ==
LOC: HO.HMGCLDS 06:01
PROVIDERS: Visit Provider Internal Medicine
DX: E03.8 Other specified hypothyroidism (principal); E66.01 Morbid (severe) obesity due to excess calories; E78.9 Disorder of lipoprotein metabolism, unspecified; I10 Essential (primary) hypertension; S89.91XA Unspecified injury of right lower leg, initial encounter
CPT/HCPCS: 36415; 80053; 80061; 82306; 84443; 85025

== ENCOUNTER 2021-08-17 07:11 | Outpatient (REF) | payer MEDICARE, SELFPAY ==
--- NOTE | ~2021-08-17 | XR_ITS ---
EXAMINATION: XR KNEE AP STANDING CLINICAL INFORMATION: Pain. COMPARISON: None TECHNIQUE: AP bilateral standing view of the knees was obtained. Single patellofemoral/sunrise view of the right patella was also obtained. FINDINGS: Bilateral knees: Frontal view only views of both knees shows decrease joint space, subchondral sclerosis and osteophyte formation bilaterally, consistent with moderate osteoarthrosis. The patellofemoral view of the right knee shows no significant osteoarthrosis and alignment is intact.. XR/XR knee standing BI IMPRESSION: Bilateral moderate medial compartmental osteoarthrosis.
--- NOTE | ~2021-08-17 | XR_ITS ---
EXAMINATION: XR KNEE AP STANDING CLINICAL INFORMATION: Pain. COMPARISON: None TECHNIQUE: AP bilateral standing view of the knees was obtained. Single patellofemoral/sunrise view of the right patella was also obtained. FINDINGS: Bilateral knees: Frontal view only views of both knees shows decrease joint space, subchondral sclerosis and osteophyte formation bilaterally, consistent with moderate osteoarthrosis. The patellofemoral view of the right knee shows no significant osteoarthrosis and alignment is intact.. XR/XR knee RT 1V IMPRESSION: Bilateral moderate medial compartmental osteoarthrosis.
== END 2021-08-17 07:12 | disposition home or self-care (01) ==
LOC: HO.HOSX 07:11
PROVIDERS: Visit Provider Physician Assistant
DX: M71.21 Synovial cyst of popliteal space [Baker], right knee (principal)
CPT/HCPCS: 20610; 73560; 73565; 99202; J1040

== ENCOUNTER → 2021-10-17 11:17 | Outpatient (BNVA) | payer MEDICARE, SELFPAY | PROVIDERS: PCP Internal Medicine; Visit Provider Physician Assistant | DX: M17.11 Unilateral primary osteoarthritis, right knee (principal) | CPT/HCPCS: 99212 ==

== ENCOUNTER 2022-03-04 06:33 | Outpatient (REF) | payer MEDICARE, SELFPAY ==
[2022-03-04 12:19] LABS: Alanine Aminotransferase 17 U/L (0-31); Albumin Level 4.3 g/dL (3.5-5.0); Alkaline Phosphatase 68 U/L (39-117); Anion Gap 10 (12-20); Aspartate Amino Transferase 17 U/L (5-31); Bilirubin Total 0.6 mg/dL (0.0-1.0); Blood Urea Nitrogen 18 mg/dL (9-16); Calcium 9.6 mg/dL (8.4-10.2); Carbon Dioxide 29 mmol/L (22-29); Chloride 107 mmol/L (96-108); Cholesterol 207 mg/dL; Estimated Glomerular Filt Rate > 60; Glucose Fasting 86 mg/dL (60-99); HDL Cholesterol 59 mg/dL; LDL Cholesterol Calculated 125 mg/dl; Potassium 4.2 mmol/L (3.3-5.1); Sodium 142 mmol/L (135-145); TSH reflex Free T4 0.13 uIU/mL (0.32-4.0); Total Protein 7.1 g/dL (6.5-8.0); Triglycerides 117 mg/dL
== END 2022-03-04 06:34 | disposition home or self-care (01) ==
LOC: HO.HMGCLDS 06:33
PROVIDERS: PCP Internal Medicine; Visit Provider Internal Medicine
DX: E03.8 Other specified hypothyroidism (principal); I10 Essential (primary) hypertension; E78.9 Disorder of lipoprotein metabolism, unspecified; E66.09 Other obesity due to excess calories; M17.11 Unilateral primary osteoarthritis, right knee
CPT/HCPCS: 36415; 80053; 80061; 84439; 84443

== ENCOUNTER 2022-04-19 12:35 | Outpatient (REF) | payer MEDICARE, SELFPAY ==
[2022-04-19 15:10] LABS: TSH reflex Free T4 0.32 uIU/mL (0.32-4.0)
== END 2022-04-19 12:36 | disposition home or self-care (01) ==
LOC: HO.HMGCLDS 12:35
PROVIDERS: PCP Internal Medicine; Visit Provider Internal Medicine
DX: E03.8 Other specified hypothyroidism (principal)
CPT/HCPCS: 36415; 84443

== ENCOUNTER 2022-04-23 09:49 | Outpatient (REF) | payer MEDICARE, SELFPAY ==
--- NOTE | ~2022-04-23 | XR_ITS ---
EXAMINATION: XR LUMBOSACRAL SPINE CLINICAL INFORMATION: Dorsalgia COMPARISON: 11/15/2014 TECHNIQUE: Three views of the lumbosacral spine. FINDINGS: No acute fracture or subluxation. Vertebral body height and alignment maintained from prior. There is grade 1 anterolisthesis of L2 on L3. Progressive disc space narrowing at this level. There is also mild narrowing of the L5-S1 disc space with grade 1 anterolisthesis. Facet arthropathy throughout. Small endplate osteophytes. The sacroiliac joints are symmetric. The visualized sacrum is intact. Normal bowel gas pattern. XR/XR lumbar spine 2-3V IMPRESSION: Mild to moderate degenerative changes of the lumbar spine which have progressed from the previous study. No acute abnormality.
[2022-04-23 11:23] LABS: Appearance Urine Clear; Color Urine Yellow; Glucose Urine UA Negative (Negative); Leukocyte Esterase Urine Negative (Negative); Nitrite Urine Negative (Negative); PH 5.5 (5.0-9.0); Urine Blood Negative (Negative); Urine Ketones Negative (Negative); Urine Protein Negative (Neg-Trace)
== END 2022-04-23 09:50 | disposition home or self-care (01) ==
LOC: HO.HMGCX 09:49
PROVIDERS: PCP Internal Medicine; Visit Provider Nurse Practitioner Family
DX: M54.9 Dorsalgia, unspecified (principal); R10.9 Unspecified abdominal pain
CPT/HCPCS: 72100; 81003

== ENCOUNTER 2022-10-16 13:39 | Outpatient (AMB) | payer MEDICARE, SELFPAY ==
[2022-10-16 13:47] VITALS: BP 142/86; PULSE 68; O2SAT 95; BMI 33.9
--- NOTE | 2022-10-16 13:47 | MHC.PC.OV ---
Vital Signs 10/16/22 13:47 Height 5 ft 7 in Weight 216 lb 6 oz BMI 33.9 BP 142/86 H Blood Pressure Location Rt brachial Position Sitting Pulse 68 Pulse Source Pulse Oximeter Pulse Oximetry (%) 95 Oxygen Delivery Method Room Air Intake Visit Reasons: 3 month follow up Allergies rosuvastatin Adverse Reaction (Unknown, Verified 10/16/22 13:47) muscles cramps Medication List - Last Reconciled 10/16/22 by Sofya Andujar MD acetaminophen (Tylenol Extra Strength) 1,000 mg PO Q6H PRN atenolol 50 mg PO DAILY 90 days celecoxib (Celebrex) 200 mg PO ONCE 90 days coenzyme Q10 200 mg PO DAILY fluvastatin 20 mg PO BEDTIME levothyroxine 137 mcg PO DAILY 90 days losartan 50 mg PO BID 90 days tizanidine 2 mg PO BEDTIME PRN 30 days tramadol 50 mg PO BEDTIME PRN 30 days Tobacco use date assessed: 10/16/22 Fall risk assessment: No Falls in past year Last assessed Fall Risk: 10/16/22 Dental Screening Dental Screen Date: 10/16/22 Did you have a dental visit in the last 12 months?: Yes Did you have a dental problem in the last 6 months where you did not have access to dental care?: No Was dental information given to patient?: No HPI 3 month follow up HPI Details Patient is 67-year-old female came in today for her regular follow-up appointment I prescribed tramadol 50 mg and Tizenadin last visit for back pain and knee pain patient is doing much better taking tramadol I have sent refill for her She is only taking it as needed I have sent 45 tablet for 90 days Patient is currently seeing [facility] and had a cortisone injection which did not help her She had an MRI of lumbar spine which showed moderate spinal stenosis Patient is taking Celebrex as well Patient says that the most difficult time is in the morning when she wakes up it is very painful for couple of hours. Pain is nonradiating. Hypertension: Patient is currently taking losartan 50 mg b.i.d. once a day and atenolol 50 mg blood pressure is well controlled I have told her to start monitoring and logging blood pressure at home it is slightly elevated today at 142/86 Hypothyroidism: Continue levothyroxine dose to 137 TSH level is due Last time patient had labs was March of this year Lipid disorder:? Patient is on fluvastatin 20 mg she is to continue that.? No side effects BMI is elevated need to lose weight. Follow-up 3 months [facility] Medical History Arthrosis Bladder disorder Hypertension, essential Lipid disorder Other specified hypothyroidism Surgical History History of bladder surgery History of tonsillectomy Family History Father HTN (hypertension) CVD (cardiovascular disease) Myocardial infarction Mother HTN (hypertension) Acute pancreatitis Brother No problems noted. Sister No problems noted. Sister No problems noted. Daughter No problems noted. 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 Benson Wilkerson, Kasey Harvey, Jeremy Rasmussen and colleagues, with an educational lakeisha from [employer]. Review of Systems Const Denies chills and Denies fever(s) ENT Denies epistaxis and Denies nasal discharge Card Denies chest pain Resp Denies chest congestion, Denies cough and Denies hemoptysis GI Denies diarrhea and Denies nausea Skin/Breast Denies rash Neuro Reports no additional complaints Psych Reports no additional complaints Endo Reports no additional complaints Physical exam (Primary Care) Vital Signs: Last Vital Signs Pulse 68 10/16/22 13:47 BP 142/86 H 10/16/22 13:47 Pulse Ox 95 10/16/22 13:47 Oxygen Delivery Method Room Air 10/16/22 13:47 BMI result Body Mass Index 33.9 Tobacco/Smoking Status: Tobacco use Status Tobacco use date assessed 10/16/22 10/16/22 13:50 Patient Tobacco Use Status Former Tobacco user 10/16/22 13:50 e-Cigarette/Vaping Use Never Used 10/16/22 13:50 Thrive Assessment: Date of Thrive Assessment Date Thrive assessed 07/20/21 10/16/22 13:50 Const General: cooperative, comfortable and no acute distress Orientation/consciousness: patient oriented x3 HENMT Head: Yes normocephalic Eyes General: appearance normal, both eyes and all related structures Neck Neck: Yes supple Resp Effort & Inspection: normal respiratory effort, no cough and no stridor Cardio Rhythm: regular rhythm Heart sounds: S1 normal heart sound present and S2 normal heart sound present Skin General skin exam: turgor normal Neuro General: patient oriented x3, tone normal and moves all extremities Extrem Right lower extremity: no edema Left lower extremity: no edema Assessment and Plan Assessment & Plan (1) Hypertension, essential: Code(s): I10 - Essential (primary) hypertension (2) Lipid disorder: Code(s): E78.9 - Disorder of lipoprotein metabolism, unspecified (3) Other specified hypothyroidism: Code(s): E03.8 - Other specified hypothyroidism (4) Knee pain, right: Code(s): M25.561 - Pain in right knee (5) DJD (degenerative joint disease), lumbar: Code(s): M47.816 - Spondylosis without myelopathy or radiculopathy, lumbar region (6) Lumbar spondylosis: Code(s): M47.816 - Spondylosis without myelopathy or radiculopathy, lumbar region (7) Back pain: Code(s): M54.9 - Dorsalgia, unspecified (8) Obesity due to excess calories: Code(s): E66.09 - Other obesity due to excess calories Plan Patient is 67-year-old female came in today for her regular follow-up appointment I prescribed tramadol 50 mg and Tizenadin last visit for back pain and knee pain patient is doing much better taking tramadol I have sent refill for her She is only taking it as needed I have sent 45 tablet for 90 days Right knee is causing more pain and stiffness I have ordered x-ray Patient is [facility] and had a cortisone injection which did not help her She had an MRI of lumbar spine which showed moderate spinal stenosis Patient is taking Celebrex as well Patient says that the most difficult time is in the morning when she wakes up it is very painful for couple of hours. Pain is nonradiating. Hypertension: Patient is currently taking losartan 50 mg b.i.d. once a day and atenolol 50 mg blood pressure is well controlled I have told her to start monitoring and logging blood pressure at home it is slightly elevated today at 142/86 Hypothyroidism: Continue levothyroxine dose to 137 TSH level is due Last time patient had labs was March of this year Lipid disorder:? Patient is on fluvastatin 20 mg she is to continue that.? No side effects BMI is elevated need to lose weight. Follow-up 3 months Orders: Orders Comprehensive Met. Panel Today E78.9 - Disorder of lipoprotein metabolism, unspecified, I10 - Essential (primary) hypertension LDL Cholesterol Direct Today E78.9 - Disorder of lipoprotein metabolism, unspecified, I10 - Essential (primary) hypertension TSH reflex Free T4 Today E03.8 - Other specified hypothyroidism XR knee RT 2V Today M25.561 - Pain in right knee Medications: Changed From tramadol 50 mg PO BEDTIME 30 days PRN 30 tabs 0RF pain back To tramadol 50 mg PO BEDTIME 90 days PRN 45 tabs 0RF pain back Refilled tizanidine 2 mg PO BEDTIME 30 days PRN 30 tabs 0RF muscle spasticity Coding Level of Care Code Est Pt Level 4 (23510) Diagnoses Hypertension, essential I10 Lipid disorder E78.9 Other specified hypothyroidism E03.8 Knee pain, right M25.561 DJD (degenerative joint disease), lumbar M47.816 Lumbar spondylosis M47.816 Back pain M54.9 Obesity due to excess calories E66.09
== END 2022-10-16 14:14 | disposition home or self-care (01) ==
PROVIDERS: Visit Provider Internal Medicine
DX: I10 Essential (primary) hypertension (principal); E03.8 Other specified hypothyroidism; Z68.33 Body mass index [BMI] 33.0-33.9, adult; E66.09 Other obesity due to excess calories; E78.9 Disorder of lipoprotein metabolism, unspecified; M25.561 Pain in right knee; M54.9 Dorsalgia, unspecified; M47.816 Spondylosis without myelopathy or radiculopathy, lumbar region
CPT/HCPCS: 99214

== ENCOUNTER 2022-10-16 14:09 | Outpatient (REF) | payer MEDICARE, SELFPAY ==
--- NOTE | ~2022-10-16 | XR_ITS ---
EXAMINATION: XR KNEE, RIGHT CLINICAL INFORMATION: Right knee pain. COMPARISON: Knee x-rays of 08/17/2021, 07/14/2021. TECHNIQUE: Four views of the right knee. FINDINGS: Tricompartmental osteoarthritic changes are noted with narrowing of the joint spaces and marginal osteophytic changes. No evidence of significant subarticular cystic changes. Mild subarticular sclerosis is noted. There is greater narrowing of the medial joint space compared to lateral. No evidence of suprapatellar joint effusion. No dystrophic soft tissue calcifications. XR/XR knee RT 4V IMPRESSION: No significant interval change is noted in the osteoarthritic changes in the right knee compared to previous x-ray of 07/14/2021. No acute osseous abnormality.
[2022-10-16 16:09] LABS: MANUAL DIFF FLAG NO
[2022-10-16 16:21] LABS: Basophils Absolute Auto 0.1 X10*3/uL (0.0-0.2); Basophils Percent Auto 0.8 % (0-2); Eosinophils Absolute Auto 0.2 X10*3/uL (0.0-0.4); Eosinophils Percent Auto 2.7 % (0-4); Hematocrit 40.5 % (37.0-47.0); Hemoglobin 13.1 g/dl (12.0-16.0); Imm Gran Abs Auto 0.02 X10*3/uL (0.00-0.03); Imm Gran Pct Auto 0.3 % (0.0-0.4); Lymphocytes Absolute Auto 2.2 X10*3/uL (1.2-4.9); Lymphocytes Percent Auto 28.3 % (20-40); Mean Corpuscular HGB Conc 32.3 g/dl (31.0-35.0); Mean Corpuscular Hemoglobin 29.4 pg (27.0-33.0); Mean Platelet Volume 11.3 fL (9.4-12.3); Monocytes Absolute Auto 0.6 X10*3/uL (0.1-1.2); Monocytes Percent Auto 7.1 % (2-11); Neutrophils Absolute Auto 4.8 x10*3/uL (2.0-8.3); Neutrophils Percent Auto 60.8 % (45-73); Platelet Count 257 X10*3/uL (160-400); Red Blood Count 4.45 X10*6/uL (4.20-5.50); Red Cell Distribution Width 12.7 % (11.0-16.0); White Blood Count 7.9 X10*3/uL (4.8-10.8)
[2022-10-17 02:30] LABS: TSH reflex Free T4 1.85 uIU/mL (0.32-4.0)
[2022-10-17 02:43] LABS: Anion Gap 12 (12-20)
[2022-10-17 02:47] LABS: Alanine Aminotransferase 15 U/L (0-31); Albumin Level 4.2 g/dL (3.5-5.0); Alkaline Phosphatase 60 U/L (39-117); Aspartate Amino Transferase 20 U/L (5-31); Bilirubin Total 0.3 mg/dL (0.0-1.0); Blood Urea Nitrogen 15 mg/dL (9-16); Calcium 9.2 mg/dL (8.4-10.2); Carbon Dioxide 23 mmol/L (22-29); Chloride 109 mmol/L (96-108); Estimated Glomerular Filt Rate > 60; Glucose Random 80 mg/dL (60-115); Sodium 140 mmol/L (135-145); Total Protein 7.3 g/dL (6.5-8.0)
[2022-10-18 14:17] LABS: LDL Cholesterol Direct 135 mg/dL (<100)
== END 2022-10-16 14:10 | disposition home or self-care (01) ==
LOC: HO.HMGCX 14:09
PROVIDERS: PCP Internal Medicine; Visit Provider Internal Medicine
DX: E03.8 Other specified hypothyroidism (principal); E78.9 Disorder of lipoprotein metabolism, unspecified; I10 Essential (primary) hypertension; M19.90 Unspecified osteoarthritis, unspecified site; M25.561 Pain in right knee
CPT/HCPCS: 36415; 73564; 80053; 83721; 84443; 85025

== ENCOUNTER 2022-10-23 06:04 | Outpatient (REF) | payer MEDICARE, SELFPAY ==
[2022-10-23 11:56] LABS: Alanine Aminotransferase 15 U/L (0-31); Alkaline Phosphatase 54 U/L (39-117); Anion Gap 11 (12-20); Aspartate Amino Transferase 19 U/L (5-31); Bilirubin Total 0.5 mg/dL (0.0-1.0); Blood Urea Nitrogen 15 mg/dL (9-16); Calcium 9.2 mg/dL (8.4-10.2); Carbon Dioxide 25 mmol/L (22-29); Chloride 110 mmol/L (96-108); Cholesterol 185 mg/dL; Estimated Glomerular Filt Rate > 60; Glucose Fasting 88 mg/dL (60-99); HDL Cholesterol 57 mg/dL; LDL Cholesterol Calculated 108 mg/dl; Potassium 4.1 mmol/L (3.3-5.1); Sodium 142 mmol/L (135-145); Triglycerides 101 mg/dL
== END 2022-10-23 06:05 | disposition home or self-care (01) ==
LOC: HO.HMGCLDS 06:04
PROVIDERS: PCP Internal Medicine; Visit Provider Internal Medicine
DX: E03.8 Other specified hypothyroidism (principal); E78.9 Disorder of lipoprotein metabolism, unspecified; I10 Essential (primary) hypertension; M19.90 Unspecified osteoarthritis, unspecified site
CPT/HCPCS: 36415; 80053; 80061

== ENCOUNTER 2023-01-17 10:25 | Outpatient (AMB) | payer MEDICARE, SELFPAY ==
--- NOTE | 2023-01-17 10:29 | A.OFFPC_ITS ---
Vital Signs 3 01/17/23 10:31 Height 5 ft 7 in Weight 217 lb BMI 34.0 BP 140/82 H Blood Pressure Location Rt brachial Position Sitting Pulse 67 Pulse Source Pulse Oximeter Pulse Oximetry (%) 96 Oxygen Delivery Method Room Air Intake Visit Reasons: Knee pain Allergies rosuvastatin Adverse Reaction (Unknown, Verified 01/17/23 10:34) muscles cramps Medication List - Last Reconciled 01/17/23 by Sofya Andujar MD acetaminophen (Tylenol Extra Strength) 1,000 mg PO Q6H PRN atenolol 50 mg PO DAILY 90 days celecoxib (Celebrex) 200 mg PO ONCE 90 days coenzyme Q10 200 mg PO DAILY fluvastatin 20 mg PO BEDTIME levothyroxine 137 mcg PO DAILY 90 days losartan 50 mg PO BID 90 days tizanidine 2 mg PO BEDTIME PRN 30 days tramadol 50 mg PO BEDTIME PRN 30 days Tobacco use date assessed: 01/17/23 Last assessed Fall Risk: 01/17/23 Dental Screening Dental Screen Date: 01/17/23 Did you have a dental visit in the last 12 months?: Yes Did you have a dental problem in the last 6 months where you did not have access to dental care?: No Was dental information given to patient?: Patient has dentist HPI Knee pain 2 HPI0 Details Patient has osteoarthritis in her right knee, currently having a flare- up She is already on Celebrex, she had tramadol prescription she took 1 with Tizenadin last night today she is feeling little bit better Yesterday patient could not walk and had to use her 's walker, having difficulty climbing stairs She is requesting a referral to orthopedic for cortisone injection I have sent diclofenac local gel rub And I have sent more tramadol for the patient she may continue that 1 or 2 a day. Blood pressure is elevated today, could be due to pain in the knee [facility] Medical History Bladder disorder Other specified hypothyroidism Arthrosis Lipid disorder Hypertension, essential Surgical History History of bladder surgery History of tonsillectomy Family History Father HTN (hypertension) CVD (cardiovascular disease) Myocardial infarction Mother HTN (hypertension) Acute pancreatitis Brother No problems noted. Sister No problems noted. Sister No problems noted. Daughter No problems noted. Social History Housing: House Alcohol intake: current Alcohol intake frequency: holidays/special occasions only Patient Tobacco Use Status: Former Tobacco user e-Cigarette/Vaping Use: Never Used Second Hand Smoke Exposure: No service: No Current occupational status: employed Current occupation: [employer] – [place], [place] - handed Cognitive needs: No Hearing needs: No Vision needs: Yes Questionnaire PHQ-9 Over the last 2 weeks, how often have you been bothered by any of the following problems? 1. Little interest or pleasure in doing things: not at all 2. Feeling down, depressed, or hopeless: not at all 3. Trouble falling or staying asleep, or sleeping too much: not at all 4. Feeling tired or having little energy: not at all 5. Poor appetite or overeating: not at all 6. Feeling bad about yourself - or that you are a failure or have let yourself or your family down: not at all 7. Trouble concentrating on things, such as reading the newspaper or watching television: not at all 8. Moving or speaking so slowly that other people could have noticed. Or the opposite - being so fidgety or restless that you have been moving around a lot more than usual: not at all 9. Thoughts that you would be better off or of hurting yourself in some way: not at all Total score: 0 Depression Screening Interpretation: Negative Depression Screening Done: Yes [id number] - PHQ-9 Billing: Yes Source: Developed by Drs. Benson Wilkerson, Kasey Harvey, Jeremy Rasmussen and colleagues, with an educational lakeisha from [employer]. Thrive Questionnaire Date Thrive assessed: 07/20/21 AUDIT C Alcohol Use Questionnaire (AUDIT-C) 1. How often do you have a drink containing alcohol?: Monthly or less 2. How many drinks containing alcohol do you have on a typical day when you are drinking?: 1 or 2 3. How often do you have six or more drinks on one occasion?: Never Total Score: 1 Score Reviewed/Action Taken: Yes NIKKO-7 AMB Questionnaire NIKKO-7 Date NIKKO - 7 assessed: 07/20/21 Source: Developed by Drs. Benson Wilkerson, Kasey Harvey, Jeremy Rasmussen and colleagues, with an educational lakeisha from [employer]. Review of Systems Const All systems reviewed & are unremarkable except as noted in HPI and below Physical exam (Primary Care) Vital Signs: Last Vital Signs Pulse 67 01/17/23 10:31 BP 140/82 H 01/17/23 10:31 Pulse Ox 96 01/17/23 10:31 Oxygen Delivery Method Room Air 01/17/23 10:31 BMI result Body Mass Index 34.0 Tobacco/Smoking Status: Tobacco use Status Tobacco use date assessed 01/17/23 01/17/23 10:35 Patient Tobacco Use Status Former Tobacco user 01/17/23 10:30 e-Cigarette/Vaping Use Never Used 01/17/23 10:30 PHQ-9: PHQ-9 Score PHQ-9: Total score 0 01/17/23 10:57 Depression Screening Interpretation: Negative Thrive Assessment: Date of Thrive Assessment Date Thrive assessed 07/20/21 01/17/23 10:30 Const General: no acute distress Orientation/consciousness: patient oriented x3 Eyes General: appearance normal, both eyes and all related structures Resp Effort & Inspection: normal respiratory effort and able to speak in complete sentences Auscultation: clear to auscultation bilaterally Neuro General: patient oriented x3 Extrem Elbow/forearm/wrist images: 2 1. Soreness all over, nontender to palpation, range of motion intact, no swelling, no pain in the back of the knee with palpation no pain over calf with palpation Psych Mental Status: mental status grossly normal Assessment and Plan Assessment & Plan (1) Osteoarthritis of right knee: Code(s): M17.11 - Unilateral primary osteoarthritis, right knee Qualifiers: Osteoarthritis type: primary Qualified Code(s): M17.11 - Unilateral primary osteoarthritis, right knee (2) Knee pain, right: Code(s): M25.561 - Pain in right knee Qualifiers: Chronicity: acute Qualified Code(s): M25.561 - Pain in right knee Plan Patient has osteoarthritis in her right knee, currently having a flare-up She is already on Celebrex, she had tramadol prescription she took 1 with Tizenadin last night today she is feeling little bit better Yesterday patient could not walk and had to use her 's walker, having difficulty climbing stairs She is requesting a referral to orthopedic for cortisone injection I have sent diclofenac local gel rub And I have sent more tramadol for the patient she may continue that 1 or 2 a day. Blood pressure is elevated today, could be due to pain in the knee Orders: Referrals 2 Orthopedics Referral M17.11 - Unilateral primary osteoarthritis, right knee, M25.561 - Pain in right knee Medications: New 2 diclofenac sodium 1% apply to single elbow, wrist or hand; for hand includes palm/fingers/back of hand 2 grams topical QID 100 grams 0RF 30 days Changed 2 From tramadol 50 mg PO BEDTIME 30 days PRN 20 tabs 0RF pain back To tramadol 50 mg PO BID 30 days PRN 60 tabs 0RF pain back Refilled 2 tramadol 50 mg PO BID PRN 60 tabs 0RF pain back 30 days Coding Level of Care Code Est Pt Level 3 (35895) Diagnoses Primary osteoarthritis of right knee M17.11 Osteoarthritis type: primary Acute pain of right knee M25.561 Chronicity: acute
[2023-01-17 10:31] VITALS: BP 140/82; PULSE 67; O2SAT 96; BMI 34.0
== END 2023-01-17 11:32 | disposition home or self-care (01) ==
PROVIDERS: PCP Internal Medicine; Visit Provider Internal Medicine
DX: M17.11 Unilateral primary osteoarthritis, right knee (principal); M25.561 Pain in right knee
CPT/HCPCS: 99213

== ENCOUNTER 2023-02-04 08:44 | Outpatient (AMB) | payer MEDICARE, SELFPAY ==
[2023-02-04 08:45] VITALS: BP 122/70; PULSE 67; O2SAT 95; BMI 33.7
--- NOTE | 2023-02-04 08:45 | A.OFFPC_ITS ---
Vital Signs 02/04/23 08:45 Height 5 ft 7 in Weight 215 lb 4 oz BMI 33.7 BP 122/70 Blood Pressure Location Rt brachial Position Sitting Pulse 67 Pulse Source Pulse Oximeter Pulse Oximetry (%) 95 Oxygen Delivery Method Room Air Intake Visit Reasons: Annual PE Allergies rosuvastatin Adverse Reaction (Unknown, Verified 02/04/23 08:45) muscles cramps Medication List - Last Reconciled 02/04/23 by Sofya Andujar MD acetaminophen (Tylenol Extra Strength) 1,000 mg PO Q6H PRN atenolol 50 mg PO DAILY 90 days celecoxib (Celebrex) 200 mg PO ONCE 90 days coenzyme Q10 200 mg PO DAILY diclofenac sodium 1% 2 grams topical QID 30 days fluvastatin 20 mg PO BEDTIME levothyroxine 137 mcg PO DAILY 90 days losartan 50 mg PO BID 90 days tizanidine 2 mg PO BEDTIME PRN 30 days tramadol 50 mg PO BID PRN 30 days Tobacco use date assessed: 02/04/23 Fall risk assessment: No Falls in past year Last assessed Fall Risk: 02/04/23 Dental Screening Dental Screen Date: 02/04/23 Did you have a dental visit in the last 12 months?: Yes Did you have a dental problem in the last 6 months where you did not have access to dental care?: No Was dental information given to patient?: Patient has dentist HPI Annual PE HPI Details Patient is a 67-year-old female this is a physical exam appointment Blood pressure is controlled at 122/70 patient is on atenolol 50 mg and is tolerating medication Continue levothyroxine 137 for hypothyroidism And fluvastatin 20 mg for lipid control BMI is elevated at 33.7 patient is trying to lose weight. She continued to have lower back pain patient says that she would like to start physical therapy in March, because of insurance reasons She will give me a call at that time Right knee osteoarthritis she has already been seen by Orthopedic and is due to have cortisone injection of this month Meanwhile patient is using diclofenac knee rub and tramadol 50 mg up to 2 times a day for knee pain and lower back pain She also uses tizanidine as needed Colonoscopy was in 2018 1 hyperplastic polyp was found next 1 will be in 2027 Patient is no longer having Pap smears Mammogram is due order placed. She is also due for labs before next visit in May PFSH Medical History Bladder disorder Other specified hypothyroidism Arthrosis Lipid disorder Hypertension, essential Surgical History History of bladder surgery History of tonsillectomy Family History Father HTN (hypertension) CVD (cardiovascular disease) Myocardial infarction Mother HTN (hypertension) Acute pancreatitis Brother No problems noted. Sister No problems noted. Sister No problems noted. Daughter No problems noted. Social History Housing: House Alcohol intake: current Alcohol intake frequency: holidays/special occasions only Patient Tobacco Use Status: Former Tobacco user e-Cigarette/Vaping Use: Never Used Second Hand Smoke Exposure: No service: No Current occupational status: employed Current occupation: [employer] - [employer] - [employer] Cognitive needs: No Hearing needs: No Vision needs: Yes Questionnaire PHQ-9 Over the last 2 weeks, how often have you been bothered by any of the following problems? 1. Little interest or pleasure in doing things: not at all 2. Feeling down, depressed, or hopeless: not at all 3. Trouble falling or staying asleep, or sleeping too much: not at all 4. Feeling tired or having little energy: not at all 5. Poor appetite or overeating: not at all 6. Feeling bad about yourself - or that you are a failure or have let yourself or your family down: not at all 7. Trouble concentrating on things, such as reading the newspaper or watching television: not at all 8. Moving or speaking so slowly that other people could have noticed. Or the opposite - being so fidgety or restless that you have been moving around a lot more than usual: not at all 9. Thoughts that you would be better off or of hurting yourself in some way: not at all Total score: 0 Depression Screening Interpretation: Negative Depression Screening Done: Yes 42588 - PHQ-9 Billing: Yes Source: Developed by Drs. Benson Wilkerson, Kasey Harvey, Jeremy Rasmussen and colleagues, with an educational lakeisha from [employer] Thrive Questionnaire Date Thrive assessed: 02/04/23 I am a: Patient What is your living situation today?: I have a steady place to live Within the past 12 months, did the food you bought not last and you didn't have the money to get more?: Never true Within the past 12 months, did you worry whether your food would run out before you got money to buy more?: Never true Do you have trouble paying for medicines?: No Do you have trouble getting transportation to medical appointments?: No Do you have trouble paying your heating and electricity bill?: No Do you have trouble taking care of your child, family member or friend?: No Do you have trouble with day-to-day activities such as bathing, preparing meals, shopping, managing finances, etc.?: No Are you currently unemployed and looking for a job?: No Are you interested in more education?: No Please select the resources that you would like help with: None Currently or been in a relationship where the following occur: no concerns reported NIKKO-7 AMB Questionnaire NIKKO-7 Date NIKKO - 7 assessed: 02/04/23 Feeling nervous, anxious, or on edge: 0 = Not at all Not being able to stop or control worryin = Not at all Worrying too much about different things: 0 = Not at all Trouble relaxin = Not at all Being so restless that it is hard to sit still: 0 = Not at all Becoming easily annoyed or irritable: 0 = Not at all Feeling afraid as if something awful might happen: 0 = Not at all Total NIKKO-7 score (0-4 normal; 5-9 mild; 10-14 moderate; 15-21 severe): 0 Source: Developed by Drs. Benson Wilkerson, Kasey Harvey, Jeremy Rasmussen and colleagues, with an educational lakeisha from [employer]. NIKKO-7 Assessment Billing NIKKO-7 Assessment Tool: NIKKO-7 Assessment 20740 Review of Systems Const Denies chills, Denies fever(s) and Denies headache(s) Eyes Denies blurry vision ENT Denies headache(s), Denies nasal discharge, Denies nasal obstruction, Denies odynophagia and Denies sinus pain Card Denies chest pain at rest and Denies chest pain with activity Resp Denies cough and Denies hemoptysis GI Denies diarrhea, Denies odynophagia, Denies vomiting and Denies hematemesis Reports as per HPI Musc Denies abnormal gait Skin/Breast Reports as per HPI Neuro Denies Neuro-related abnormal movements, Denies Abnormal speech present, Denies abnormal gait, Denies headache(s) and Denies Sensory deficit (Neuro) Psych Denies mood swings and Denies paranoia Endo Reports as per HPI Milton/Lymph Reports as per HPI Aller/Immun Reports as per HPI Physical exam (Primary Care) Vital Signs: Last Vital Signs Pulse 67 02/04/23 08:45 BP 122/70 02/04/23 08:45 Pulse Ox 95 02/04/23 08:45 Oxygen Delivery Method Room Air 02/04/23 08:45 BMI result Body Mass Index 33.7 Tobacco/Smoking Status: Tobacco use Status Tobacco use date assessed 02/04/23 02/04/23 08:46 Patient Tobacco Use Status Former Tobacco user 02/04/23 08:46 e-Cigarette/Vaping Use Never Used 02/04/23 08:46 Depression Screening Interpretation: Negative Thrive Assessment: Date of Thrive Assessment Date Thrive assessed 07/20/21 02/04/23 08:46 Currently or been in a relationship where the following occur: no concerns reported Const General: cooperative, comfortable and no acute distress Orientation/consciousness: patient oriented x3 HENMT Head: Yes normocephalic and Yes atraumatic Eyes General: appearance normal, both eyes and all related structures Pupils: Equal, round and reactive pupils present EOM: EOMs intact bilaterally Neck Neck: Yes supple and No lymphadenopathy Thyroid: Thyroid normal Lymphatic: no lymphadenopathy noted Chest Breast/axilla palpation: normal palpation of the breasts Resp Effort & Inspection: normal respiratory effort and able to speak in complete sentences Auscultation: clear to auscultation bilaterally Cardio Heart sounds: S1 normal heart sound present and S2 normal heart sound present GI Palpation (GI): Soft to palpation and nontender Auscultation: normal bowel sounds General: Yes no CVA tenderness Back/Spine/Pelvis Back: no CVA tenderness Skin General skin exam: elasticity normal and turgor normal Neuro General: patient oriented x3 and gait normal Cranial nerves: Yes Equal, round and reactive pupils present Speech: No Abnormal speech present Sensory Exam: No Sensory deficit (Neuro) Coordination: tandem gait normal and Romberg test negative Extrem General: Yes normal exam except as noted and No edema Assessment and Plan Assessment & Plan (1) Encounter for general adult medical examination with abnormal findings: Code(s): Z00.01 - Encounter for general adult medical examination with abnormal findings (2) Osteoarthritis of right knee: Code(s): M17.11 - Unilateral primary osteoarthritis, right knee Qualifiers: Osteoarthritis type: primary Qualified Code(s): M17.11 - Unilateral primary osteoarthritis, right knee (3) Obesity due to excess calories: Code(s): E66.09 - Other obesity due to excess calories Qualifiers: Obesity classification: adult class 1 (BMI 30 - 34.9) Serious obesity comorbidity presence: without serious comorbidity Body mass index: BMI 33.0- 33.9 Qualified Code(s): E66.09 - Other obesity due to excess calories; Z68.33 - Body mass index [BMI] 33.0-33.9, adult (4) Other specified hypothyroidism: Code(s): E03.8 - Other specified hypothyroidism (5) Lipid disorder: Code(s): E78.9 - Disorder of lipoprotein metabolism, unspecified (6) Hypertension, essential: Code(s): I10 - Essential (primary) hypertension Plan Patient is a 67-year-old female this is a physical exam appointment Blood pressure is controlled at 122/70 patient is on atenolol 50 mg and is tolerating medication Continue levothyroxine 137 for hypothyroidism And fluvastatin 20 mg for lipid control BMI is elevated at 33.7 patient is trying to lose weight. She continued to have lower back pain patient says that she would like to start physical therapy in March, because of insurance reasons She will give me a call at that time Right knee osteoarthritis she has already been seen by Orthopedic and is due to have cortisone injection of this month Meanwhile patient is using diclofenac knee rub and tramadol 50 mg up to 2 times a day for knee pain and lower back pain She also uses tizanidine as needed Colonoscopy was in 2018 1 hyperplastic polyp was found next 1 will be in 2027 Patient is no longer having Pap smears Mammogram is due order placed. She is also due for labs before next visit in May Orders: Orders Lipid Panel Today E03.8 - Other specified hypothyroidism, E66.09 - Other obesity due to excess calories, E78.9 - Disorder of lipoprotein metabolism, unspecified, I10 - Essential (primary) hypertension, M17.11 - Unilateral primary osteoarthritis, right knee, Z00.01 - Encounter for general adult medical examination with abnormal findings Complete Blood Count Auto Diff Today E03.8 - Other specified hypothyroidism, E66.09 - Other obesity due to excess calories, E78.9 - Disorder of lipoprotein metabolism, unspecified, I10 - Essential (primary) hypertension, M17.11 - Unilateral primary osteoarthritis, right knee, Z00.01 - Encounter for general adult medical examination with abnormal findings Comprehensive [place]. Panel Fast Today E03.8 - Other specified hypothyroidism, E66.09 - Other obesity due to excess calories, E78.9 - Disorder of lipoprotein metabolism, unspecified, I10 - Essential (primary) hypertension, M17.11 - Unilateral primary osteoarthritis, right knee, Z00.01 - Encounter for general adult medical examination with abnormal findings TSH reflex Free T4 Today E03.8 - Other specified hypothyroidism, E66.09 - Other obesity due to excess calories, E78.9 - Disorder of lipoprotein metabolism, unspecified, I10 - Essential (primary) hypertension, M17.11 - Unilateral primary osteoarthritis, right knee, Z00.01 - Encounter for general adult medical examination with abnormal findings MM tomosynthesis screening BI Today Z12.31 - Encounter for screening mammogram for malignant neoplasm of breast Coding Level of Care Code Est Pt Prev Care >65y(53880) Diagnoses Encounter for general adult medical examination with abnormal findings Z00.01 Primary osteoarthritis of right knee M17.11 Osteoarthritis type: primary Class 1 obesity due to excess calories without serious comorbidity with body mass index (BMI) of 33.0 to 33.9 in adult E66.09; Z68.33 Obesity classification: adult class 1 (BMI 30 - 34.9) Serious obesity comorbidity presence: without serious comorbidity Body mass index: BMI 33.0-33.9 Other specified hypothyroidism E03.8 Lipid disorder E78.9 Hypertension, essential I10 Additional Codes NIKKO-7 Assessment Billing - NIKKO-7 Assessment Tool: NIKKO-7 Assessment 56290 ([id number])
== END 2023-02-04 10:44 | disposition home or self-care (01) ==
PROVIDERS: Visit Provider Internal Medicine
DX: Z00.00 Encounter for general adult medical examination without abnormal findings (principal); M17.11 Unilateral primary osteoarthritis, right knee; E66.09 Other obesity due to excess calories; Z68.33 Body mass index [BMI] 33.0-33.9, adult; E03.8 Other specified hypothyroidism; E78.9 Disorder of lipoprotein metabolism, unspecified; I10 Essential (primary) hypertension
CPT/HCPCS: 99397

== ENCOUNTER 2023-02-18 07:57 | Outpatient (AMB) | payer MEDICARE, SELFPAY ==
--- NOTE | 2023-02-18 08:00 | A.OFFVIS_ITS ---
Intake Intake Visit Reasons: OV-Right knee injection-last injection 10/17/21 Intake Note: Megan is a 67 year old female who presents today for a repeat injection for her right knee, last injection 10/17/21. Patient reports her last injection gave her relief. Allergies rosuvastatin Adverse Reaction (Unknown, Verified 02/18/23 08:06) muscles cramps HPI OV-Right knee injection-last injection 10/17/21 HPI Details 67-year-old female who presents in the [facility] today for a follow up of right knee pain. The patient had a cortisone injection in the right knee on 08/17/2021. The patient states her last injection gave her relief. [facility] Medical History Bladder disorder Other specified hypothyroidism Arthrosis Lipid disorder Hypertension, essential Surgical History History of bladder surgery History of tonsillectomy Family History Father HTN (hypertension) CVD (cardiovascular disease) Myocardial infarction Mother HTN (hypertension) Acute pancreatitis Brother No problems noted. Sister No problems noted. Sister No problems noted. Daughter No problems noted. 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 No ecchymosis, erythema, or joint effusion. No tenderness to palpation to the medial or lateral joint lines. Full knee extension and flexion. Negative Jamal's. NVI. Office Procedures Joint Injection/Drain Joint Injection/Drain Primary Site: right knee Prep: site was prepped using aseptic technique, ethochloride spray was applied and injection warnings given Injected: 80 mg of, DepoMedrol, with 8 mL of (2% plain lido ) and in the joint Approach Used: anterolateral Procedure: The patient tolerated the procedure well, but had some pain with the injection and there was some relief with the local anesthesia Coding - Large joint Procedure code (CPT) selection complete Assessment & Plan Assessment & Plan (1) Osteoarthritis of right knee: Code(s): M17.11 - Unilateral primary osteoarthritis, right knee Qualifiers: Osteoarthritis type: primary Qualified Code(s): M17.11 - Unilateral primary osteoarthritis, right knee Plan Ms. Rod is a 67-year-old female who presents in the office today for a follow up of right knee pain. The patient had a cortisone injection in the right knee on 08/17/2021. The patient states her last injection gave her relief. The patient was offered a cortisone injection in the right knee with 80 mg of DepoMedrol. The patient was explained the risk, benefits, and alternatives to receiving this injection. After receiving consent for the injection, the patient had the procedure done while in office today. The patient tolerated the procedure well with no complications. Follow up will be PRN, or sooner if needed. Patient Instructions: Scribed for Gracie Fisher PA-C by Divina Squires medical cost consultant, on 02/18/2023 at 7:58 am, EST. Coding Level of Care Code Est Pt Level 3 (27119) Diagnoses Primary osteoarthritis of right knee M17.11 Osteoarthritis type: primary CPT Codes Coding - Large joint: 12491 - Large joint ([id number])
== END 2023-02-18 08:12 | disposition home or self-care (01) ==
PROVIDERS: PCP Internal Medicine; Visit Provider Physician Assistant
DX: M17.11 Unilateral primary osteoarthritis, right knee (principal)
CPT/HCPCS: 20610; 99214

== ENCOUNTER → 2023-02-18 07:57 | Outpatient (BNVA) | payer MEDICARE, SELFPAY | PROVIDERS: PCP Internal Medicine; Visit Provider Physician Assistant | DX: M17.11 Unilateral primary osteoarthritis, right knee (principal) | CPT/HCPCS: 20610; 99212; J1040 ==

== ENCOUNTER 2023-03-17 07:26 | Outpatient (REF) | payer MEDICARE, SELFPAY | END 2023-03-17 07:27 | disposition home or self-care (01) | LOC: HO.MAMMO 07:26 | PROVIDERS: PCP Internal Medicine; Visit Provider Internal Medicine | DX: Z12.31 Encounter for screening mammogram for malignant neoplasm of breast (principal) | CPT/HCPCS: 77063; 77067 ==

== ENCOUNTER → 2023-03-17 07:45 | Outpatient (BNV) | payer MEDICARE, SELFPAY | PROVIDERS: PCP Internal Medicine; Visit Provider Radiology Diagnostic Radiology | DX: Z12.31 Encounter for screening mammogram for malignant neoplasm of breast (principal) | CPT/HCPCS: 77063; 77067 ==

== ENCOUNTER 2023-05-08 08:26 | Outpatient (AMB) | payer MEDICARE, SELFPAY ==
--- NOTE | 2023-05-08 08:27 | A.OFFPC_ITS ---
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 Required: No Allergies rosuvastatin Adverse Reaction (Unknown, Verified 05/08/23 08:27) muscles cramps Medication List - Last Reconciled 05/08/23 by Sofya Andujar MD acetaminophen (Tylenol Extra Strength) 1,000 mg PO Q6H PRN atenolol 50 mg PO DAILY 90 days celecoxib (Celebrex) 200 mg PO DAILY 90 days coenzyme Q10 200 mg PO DAILY fluvastatin 20 mg PO BEDTIME levothyroxine 137 mcg PO DAILY 90 days losartan 50 mg PO BID 90 days tizanidine 2 mg PO BEDTIME PRN 30 days tramadol 50 mg PO BID PRN 30 days Tobacco use date assessed: 05/08/23 Fall risk assessment: No Falls in past year Last assessed Fall Risk: 05/08/23 Dental Screening Dental Screen Date: 05/08/23 Did you have a dental visit in the last 12 months?: Yes Did you have a dental problem in the last 6 months where you did not have access to dental care?: No Was dental information given to patient?: Patient has dentist HPI 6 Month f/u HPI Details Patient is a 67-year-old female this is a telemedicine video conference follow-up Tells me that she has started going to gym to strengthen her core muscles Patient continued to have back pain off and on and is taking tramadol for pain control only as needed I usually prescribed 60 tablets every 3 months when patient come in for follow- up She is also on Celebrex for arthritic pain Blood pressure is controlled , these days running around 130s systolic patient is on atenolol 50 mg and losartan 50 mg b.i.d. Continue levothyroxine 137 for hypothyroidism And fluvastatin 20 mg for lipid control Osteoarthritis knees stable She still has not done labs, reminded patient to do it as soon as possible Follow-up 3 months [facility] Medical History Bladder disorder Other specified hypothyroidism Arthrosis Lipid disorder Hypertension, essential Surgical History History of bladder surgery History of tonsillectomy Family History Father HTN (hypertension) CVD (cardiovascular disease) Myocardial infarction Mother HTN (hypertension) Acute pancreatitis Brother No problems noted. Sister No problems noted. Sister No problems noted. Daughter No problems noted. Social History Housing: House Alcohol intake: current Alcohol intake frequency: holidays/special occasions only Patient Tobacco Use Status: Former Tobacco user e-Cigarette/Vaping Use: Never Used Second Hand Smoke Exposure: No service: No Current occupational status: employed Current occupation: [employer] - [employer] handed Cognitive needs: No Hearing needs: No Vision needs: Yes Questionnaire PHQ-9 Over the last 2 weeks, how often have you been bothered by any of the following problems? 1. Little interest or pleasure in doing things: not at all 2. Feeling down, depressed, or hopeless: not at all 3. Trouble falling or staying asleep, or sleeping too much: not at all 4. Feeling tired or having little energy: not at all 5. Poor appetite or overeating: not at all 6. Feeling bad about yourself - or that you are a failure or have let yourself or your family down: not at all 7. Trouble concentrating on things, such as reading the newspaper or watching television: not at all 8. Moving or speaking so slowly that other people could have noticed. Or the opposite - being so fidgety or restless that you have been moving around a lot more than usual: not at all 9. Thoughts that you would be better off or of hurting yourself in some way: not at all Total score: 0 Depression Screening Interpretation: Negative Depression Screening Done: Yes 26004 - PHQ-9 Billing: Yes Source: Developed by Drs. Benson Wilkerson, Kasey Harvey, Jeremy Rasmussen and colleagues, with an educational lakeisha from [employer]. Thrive Questionnaire Date Thrive assessed: 05/08/23 I am a: Patient What is your living situation today?: I have a steady place to live Within the past 12 months, did the food you bought not last and you didn't have the money to get more?: Never true Within the past 12 months, did you worry whether your food would run out before you got money to buy more?: Never true Do you have trouble paying for medicines?: No Do you have trouble getting transportation to medical appointments?: No Do you have trouble paying your heating and electricity bill?: No Do you have trouble taking care of your child, family member or friend?: No Do you have trouble with day-to-day activities such as bathing, preparing meals, shopping, managing finances, etc.?: No Are you currently unemployed and looking for a job?: No Are you interested in more education?: No Please select the resources that you would like help with: None Currently or been in a relationship where the following occur: no concerns reported THRIVE Score: 0 AUDIT C Alcohol Use Questionnaire (AUDIT-C) 1. How often do you have a drink containing alcohol?: Monthly or less 2. How many drinks containing alcohol do you have on a typical day when you are drinking?: 1 or 2 3. How often do you have six or more drinks on one occasion?: Never Total Score: 1 Score Reviewed/Action Taken: Yes NIKKO-7 AMB Questionnaire NIKKO-7 Date NIKKO - 7 assessed: 05/08/23 Feeling nervous, anxious, or on edge: 0 = Not at all Not being able to stop or control worryin = Not at all Worrying too much about different things: 0 = Not at all Trouble relaxin = Not at all Being so restless that it is hard to sit still: 0 = Not at all Becoming easily annoyed or irritable: 0 = Not at all Feeling afraid as if something awful might happen: 0 = Not at all Total NIKKO-7 score (0-4 normal; 5-9 mild; 10-14 moderate; 15-21 severe): 0 Source: Developed by Drs. Benson Wilkerson, Kasey Harvey, Jeremy Rasmussen and colleagues, with an educational lakeisha from [employer]. NIKKO-7 Assessment Billing NIKKO-7 Assessment Tool: NIKKO-7 Assessment 33918 Review of Systems Const Denies chills and Denies fever(s) ENT Denies epistaxis and Denies nasal discharge Card Denies chest pain Resp Denies chest congestion, Denies cough and Denies hemoptysis GI Denies diarrhea and Denies nausea Skin/Breast Denies rash Neuro Reports no additional complaints Psych Reports no additional complaints Endo Reports no additional complaints Physical exam (Primary Care) Tobacco/Smoking Status: Tobacco use Status Tobacco use date assessed 05/08/23 05/08/23 08:29 Patient Tobacco Use Status Former Tobacco user 05/08/23 08:29 e-Cigarette/Vaping Use Never Used 05/08/23 08:29 PHQ-9: PHQ-9 Score PHQ-9: Total score 0 05/08/23 08:42 Depression Screening Interpretation: Negative Thrive Assessment: Date of Thrive Assessment Date Thrive assessed 05/08/23 05/08/23 08:29 Currently or been in a relationship where the following occur: no concerns reported Telehealth Telehealth Location of provider rendering services: practice address Location of patient: address on file Patient Identification confirmed using: Name, : Yes Telehealth method: video Patient verbally consented to treatment: Yes Patient verbally consented to billing insurance company: Yes Patient informed of any privacy concerns related to visit: Yes Assessment and Plan Assessment & Plan (1) Osteoarthritis of right knee: Code(s): M17.11 - Unilateral primary osteoarthritis, right knee Qualifiers: Osteoarthritis type: primary Qualified Code(s): M17.11 - Unilateral primary osteoarthritis, right knee (2) Obesity due to excess calories: Code(s): E66.09 - Other obesity due to excess calories Qualifiers: Body mass index: BMI 33.0-33.9 Obesity classification: adult class 1 (BMI 30 - 34.9) Serious obesity comorbidity presence: without serious comorbidity Qualified Code(s): E66.09 - Other obesity due to excess calories; Z68.33 - Body mass index [BMI] 33.0-33.9, adult (3) Other specified hypothyroidism: Code(s): E03.8 - Other specified hypothyroidism Plan Patient is a 67-year-old female this is a telemedicine video conference follow- up Tells me that she has started going to gym to strengthen her core muscles Patient continued to have back pain off and on and is taking tramadol for pain control only as needed I usually prescribed 60 tablets every 3 months when patient come in for follow- up She is also on Celebrex for arthritic pain Blood pressure is controlled , these days running around 130s systolic patient is on atenolol 50 mg and losartan 50 mg b.i.d. Continue levothyroxine 137 for hypothyroidism And fluvastatin 20 mg for lipid control Osteoarthritis knees stable She still has not done labs, reminded patient to do it as soon as possible Follow-up 3 months Medications: Refilled tramadol 50 mg PO BID PRN 60 tabs 0RF pain back 30 days tizanidine 2 mg PO BEDTIME PRN 30 tabs 0RF muscle spasticity 30 days Coding Level of Care Code Tele Est Pt Level 4 (07647) Diagnoses Primary osteoarthritis of right knee M17.11 Osteoarthritis type: primary Class 1 obesity due to excess calories without serious comorbidity with body mass index (BMI) of 33.0 to 33.9 in adult E66.09; Z68.33 Body mass index: BMI 33.0-33.9 Obesity classification: adult class 1 (BMI 30 - 34.9) Serious obesity comorbidity presence: without serious comorbidity Other specified hypothyroidism E03.8 Additional Codes NIKKO-7 Assessment Billing - NIKKO-7 Assessment Tool: NIKKO-7 Assessment 59103 ([id number]) Time Spent (min) 30 Comment 5 pre visit, 15 with patient, 5 charting, 5 coordination of care
== END 2023-05-08 11:50 | disposition home or self-care (01) ==
LOC: HO.HMGC 08:26
PROVIDERS: PCP Internal Medicine; Visit Provider Internal Medicine
DX: M17.11 Unilateral primary osteoarthritis, right knee (principal); E66.09 Other obesity due to excess calories; Z68.33 Body mass index [BMI] 33.0-33.9, adult; E03.8 Other specified hypothyroidism
CPT/HCPCS: 99214

== ENCOUNTER 2023-05-09 06:25 | Outpatient (REF) | payer MEDICARE, SELFPAY ==
[2023-05-09 11:40] LABS: MANUAL DIFF FLAG NO
[2023-05-09 11:41] LABS: Basophils Absolute Auto 0.1 X10*3/uL (0.0-0.2); Basophils Percent Auto 0.8 % (0-2); Eosinophils Absolute Auto 0.2 X10*3/uL (0.0-0.4); Eosinophils Percent Auto 3.7 % (0-4); Hematocrit 36.8 % (37.0-47.0); Hemoglobin 11.7 g/dl (12.0-16.0); Imm Gran Abs Auto 0.01 X10*3/uL (0.00-0.03); Imm Gran Pct Auto 0.2 % (0.0-0.4); Lymphocytes Absolute Auto 1.9 X10*3/uL (1.2-4.9); Lymphocytes Percent Auto 29.9 % (20-40); Mean Corpuscular HGB Conc 31.8 g/dl (31.0-35.0); Mean Corpuscular Hemoglobin 29.7 pg (27.0-33.0); Mean Corpuscular Volume 93.4 fL (80.0-98.0); Mean Platelet Volume 11.6 fL (9.4-12.3); Monocytes Absolute Auto 0.4 X10*3/uL (0.1-1.2); Monocytes Percent Auto 6.8 % (2-11); Neutrophils Absolute Auto 3.6 x10*3/uL (2.0-8.3); Neutrophils Percent Auto 58.6 % (45-73); Platelet Count 252 X10*3/uL (160-400); Red Blood Count 3.94 X10*6/uL (4.20-5.50); Red Cell Distribution Width 14.1 % (11.0-16.0); White Blood Count 6.2 X10*3/uL (4.8-10.8)
[2023-05-09 12:01] LABS: Alanine Aminotransferase 14 U/L (0-31); Albumin Level 3.9 g/dL (3.5-5.0); Alkaline Phosphatase 47 U/L (39-117); Anion Gap 12 (12-20); Aspartate Amino Transferase 19 U/L (5-31); Bilirubin Total 0.4 mg/dL (0.0-1.0); Blood Urea Nitrogen 17 mg/dL (9-16); Calcium 9.4 mg/dL (8.4-10.2); Carbon Dioxide 27 mmol/L (22-29); Chloride 106 mmol/L (96-108); Cholesterol 172 mg/dL (<200); Estimated Glomerular Filt Rate > 60; Glucose Fasting 91 mg/dL (60-99); HDL Cholesterol 52 mg/dL (>40); LDL Cholesterol Calculated 104 mg/dL (<100); Potassium 4.2 mmol/L (3.3-5.1); Sodium 141 mmol/L (135-145); Total Protein 6.9 g/dL (6.5-8.0); Triglycerides 82 mg/dL (<150)
== END 2023-05-09 06:26 | disposition home or self-care (01) ==
LOC: HO.HMGCLDS 06:25
PROVIDERS: PCP Internal Medicine; Visit Provider Internal Medicine
DX: Z00.01 Encounter for general adult medical examination with abnormal findings (principal); M17.11 Unilateral primary osteoarthritis, right knee; E66.09 Other obesity due to excess calories; E03.8 Other specified hypothyroidism; E78.9 Disorder of lipoprotein metabolism, unspecified; I10 Essential (primary) hypertension
CPT/HCPCS: 36415; 80053; 80061; 84443; 85025

== ENCOUNTER 2023-08-20 09:20 | Outpatient (AMB) | payer MEDICARE, SELFPAY ==
[2023-08-20 09:22] VITALS: BP 146/88; PULSE 61; O2SAT 95; BMI 31.9
--- NOTE | 2023-08-20 09:22 | A.OFFPC_ITS ---
Vital Signs 08/20/23 09:22 Height 5 ft 7 in Weight 203 lb 8 oz BMI 31.9 BP 146/88 H Blood Pressure Location Lt brachial Position Sitting Pulse 61 Pulse Source Pulse Oximeter Pulse Oximetry (%) 95 Oxygen Delivery Method Room Air Intake Visit Reasons: 3 month follow up Allergies rosuvastatin Adverse Reaction (Unknown, Verified 08/20/23 09:22) muscles cramps Medication List - Last Reconciled 08/20/23 by Sofya Andujar MD acetaminophen (Tylenol Extra Strength) 1,000 mg PO Q6H PRN atenolol 50 mg PO DAILY 90 days celecoxib (Celebrex) 200 mg PO DAILY 90 days coenzyme Q10 200 mg PO DAILY fluvastatin 20 mg PO BEDTIME levothyroxine 137 mcg PO DAILY 90 days losartan 50 mg PO BID 90 days tizanidine 2 mg PO BEDTIME PRN 30 days tramadol 50 mg PO BID PRN 30 days Tobacco use date assessed: 08/20/23 Fall risk assessment: No Falls in past year Last assessed Fall Risk: 08/20/23 Dental Screening Dental Screen Date: 08/20/23 Did you have a dental visit in the last 12 months?: Yes Did you have a dental problem in the last 6 months where you did not have access to dental care?: No Was dental information given to patient?: Patient has dentist HPI 3 month follow up HPI Details Patient is 67-year-old female with a history of osteoarthritis multiple joints, hypertension, lipid disorder, obesity Came in for regular follow-up appointment Reviewing her chart I see that hemoglobin was 13.1 September of last year, and May of this year it has dropped to 11.7 Patient does not have any hemorrhoids that she no off. We will be repeating labs again today Her blood pressure is also slightly elevated today at 146/88, patient is on losartan 50 mg b.i.d. and atenolol 50 mg once a day Blood pressure was fine last visit we will continue to monitor that, also advised patient to start monitoring it at home and keep a log. Hypothyroidism: Continue levothyroxine 137 mcg Lipid disorder: Continue fluvastatin 20 mg She is also on Celebrex 200 mg daily for arthritic pain and tramadol as needed a long with tizanidine Patient does not need any refill for tramadol this visit She will return in October for follow-up [facility] Medical History Bladder disorder Other specified hypothyroidism Arthrosis Lipid disorder Hypertension, essential Surgical History History of bladder surgery History of tonsillectomy Family History Father HTN (hypertension) CVD (cardiovascular disease) Myocardial infarction Mother HTN (hypertension) Acute pancreatitis Brother No problems noted. Sister No problems noted. Sister No problems noted. Daughter No problems noted. Social History Housing: House Alcohol intake: current Alcohol intake frequency: holidays/special occasions only Patient Tobacco Use Status: Former Tobacco user e-Cigarette/Vaping Use: Never Used Second Hand Smoke Exposure: No service: No Current occupational status: employed Current occupation: [employer] Cognitive needs: No Hearing needs: No Vision needs: Yes Questionnaire PHQ-9 Over the last 2 weeks, how often have you been bothered by any of the following problems? 1. Little interest or pleasure in doing things: not at all 2. Feeling down, depressed, or hopeless: not at all 3. Trouble falling or staying asleep, or sleeping too much: not at all 4. Feeling tired or having little energy: not at all 5. Poor appetite or overeating: not at all 6. Feeling bad about yourself - or that you are a failure or have let yourself or your family down: not at all 7. Trouble concentrating on things, such as reading the newspaper or watching television: not at all 8. Moving or speaking so slowly that other people could have noticed. Or the opposite - being so fidgety or restless that you have been moving around a lot more than usual: not at all 9. Thoughts that you would be better off or of hurting yourself in some way: not at all Total score: 0 Depression Screening Interpretation: Negative Depression Screening Done: Yes 46927 - PHQ-9 Billing: Yes Source: Developed by Drs. Benson Wilkerson, Kasey Harvey, Jeremy Rasmussen and colleagues, with an educational lakeisha from [employer]. Thrive Questionnaire Date Thrive assessed: 08/20/23 I am a: Patient What is your living situation today?: I have a steady place to live Within the past 12 months, did the food you bought not last and you didn't have the money to get more?: Never true Within the past 12 months, did you worry whether your food would run out before you got money to buy more?: Never true Do you have trouble paying for medicines?: No Do you have trouble getting transportation to medical appointments?: No Do you have trouble paying your heating and electricity bill?: No Do you have trouble taking care of your child, family member or friend?: No Do you have trouble with day-to-day activities such as bathing, preparing meals, shopping, managing finances, etc.?: No Are you currently unemployed and looking for a job?: No Are you interested in more education?: No Please select the resources that you would like help with: None Currently or been in a relationship where the following occur: no concerns reported THRIVE Score: 0 AUDIT C Alcohol Use Questionnaire (AUDIT-C) 1. How often do you have a drink containing alcohol?: Monthly or less 2. How many drinks containing alcohol do you have on a typical day when you are drinking?: 1 or 2 3. How often do you have six or more drinks on one occasion?: Never Total Score: 1 Score Reviewed/Action Taken: Yes NIKKO-7 AMB Questionnaire NIKKO-7 Date NIKKO - 7 assessed: 08/20/23 Feeling nervous, anxious, or on edge: 0 = Not at all Not being able to stop or control worryin = Not at all Worrying too much about different things: 0 = Not at all Trouble relaxin = Not at all Being so restless that it is hard to sit still: 0 = Not at all Becoming easily annoyed or irritable: 0 = Not at all Feeling afraid as if something awful might happen: 0 = Not at all Total NIKKO-7 score (0-4 normal; 5-9 mild; 10-14 moderate; 15-21 severe): 0 Source: Developed by Drs. Benson Wilkerson, Kasey Harvey, Jeremy Rasmussen and colleagues, with an educational lakeisha from [employer]. NIKKO-7 Assessment Billing NIKKO-7 Assessment Tool: NIKKO-7 Assessment 81496 Review of Systems Const Denies chills and Denies fever(s) ENT Denies epistaxis and Denies nasal discharge Card Denies chest pain Resp Denies chest congestion, Denies cough and Denies hemoptysis GI Denies diarrhea and Denies nausea Skin/Breast Denies rash Neuro Reports no additional complaints Psych Reports no additional complaints Endo Reports no additional complaints Physical exam (Primary Care) Vital Signs: Last Vital Signs Pulse 61 08/20/23 09:22 BP 146/88 H 08/20/23 09:22 Pulse Ox 95 08/20/23 09:22 Oxygen Delivery Method Room Air 08/20/23 09:22 BMI result Body Mass Index 31.9 Tobacco/Smoking Status: Tobacco use Status Tobacco use date assessed 08/20/23 08/20/23 09:24 Patient Tobacco Use Status Former Tobacco user 08/20/23 09:24 e-Cigarette/Vaping Use Never Used 08/20/23 09:24 PHQ-9: PHQ-9 Score PHQ-9: Total score 0 08/20/23 09:49 Depression Screening Interpretation: Negative Thrive Assessment: Date of Thrive Assessment Date Thrive assessed 08/20/23 08/20/23 09:49 Currently or been in a relationship where the following occur: no concerns reported Const General: cooperative, comfortable and no acute distress Orientation/consciousness: patient oriented x3 HENMT Head: Yes normocephalic Eyes General: appearance normal, both eyes and all related structures Neck Neck: Yes supple Resp Effort & Inspection: normal respiratory effort, no cough and no stridor Cardio Rhythm: regular rhythm Heart sounds: S1 normal heart sound present and S2 normal heart sound present Skin General skin exam: turgor normal Neuro General: patient oriented x3, tone normal and moves all extremities Extrem Right lower extremity: no edema Left lower extremity: no edema Assessment and Plan Assessment & Plan (1) Anemia: Code(s): D64.9 - Anemia, unspecified Qualifiers: Anemia type: other cause Other causes of anemia: chronic disease, other Qualified Code(s): D63.8 - Anemia in other chronic diseases classified elsewhere (2) Hypertension, essential: Code(s): I10 - Essential (primary) hypertension (3) Lipid disorder: Code(s): E78.9 - Disorder of lipoprotein metabolism, unspecified (4) Osteoarthritis of right knee: Code(s): M17.11 - Unilateral primary osteoarthritis, right knee Qualifiers: Osteoarthritis type: primary Qualified Code(s): M17.11 - Unilateral primary osteoarthritis, right knee (5) Other specified hypothyroidism: Code(s): E03.8 - Other specified hypothyroidism (6) Obesity due to excess calories: Code(s): E66.09 - Other obesity due to excess calories Qualifiers: Body mass index: BMI 33.0-33.9 Obesity classification: adult class 1 (BMI 30 - 34.9) Serious obesity comorbidity presence: without serious comorbidity Qualified Code(s): E66.09 - Other obesity due to excess calories; Z68.33 - Body mass index [BMI] 33.0-33.9, adult Plan Patient is 67-year-old female with a history of osteoarthritis multiple joints, hypertension, lipid disorder, obesity Came in for regular follow-up appointment Reviewing her chart I see that hemoglobin was 13.1 September of last year, and May of this year it has dropped to 11.7 Patient does not have any hemorrhoids that she no off. We will be repeating labs again today Her blood pressure is also slightly elevated today at 146/88, patient is on losartan 50 mg b.i.d. and atenolol 50 mg once a day Blood pressure was fine last visit we will continue to monitor that, also advised patient to start monitoring it at home and keep a log. Hypothyroidism: Continue levothyroxine 137 mcg Lipid disorder: Continue fluvastatin 20 mg She is also on Celebrex 200 mg daily for arthritic pain and tramadol as needed along with tizanidine Patient does not need any refill for tramadol this visit She will return in October for follow-up Orders: Orders Complete Blood Count Auto Diff Today D64.9 - Anemia, unspecified Ferritin Today D64.9 - Anemia, unspecified Coding Level of Care Code Est Pt Level 4 (07987) Complex EM visit Add On G2211 Diagnoses Anemia in other chronic diseases classified elsewhere D63.8 Anemia type: other cause Other causes of anemia: chronic disease, other Hypertension, essential I10 Lipid disorder E78.9 Primary osteoarthritis of right knee M17.11 Osteoarthritis type: primary Other specified hypothyroidism E03.8 Class 1 obesity due to excess calories without serious comorbidity with body mass index (BMI) of 33.0 to 33.9 in adult E66.09; Z68.33 Body mass index: BMI 33.0-33.9 Obesity classification: adult class 1 (BMI 30 - 34.9) Serious obesity comorbidity presence: without serious comorbidity Additional Codes NIKKO-7 Assessment Billing - NIKKO-7 Assessment Tool: NIKKO-7 Assessment 71332 ([id number])
== END 2023-08-20 09:47 | disposition home or self-care (01) ==
PROVIDERS: PCP Internal Medicine; Visit Provider Internal Medicine
DX: I10 Essential (primary) hypertension (principal); E78.9 Disorder of lipoprotein metabolism, unspecified; M17.11 Unilateral primary osteoarthritis, right knee; D63.8 Anemia in other chronic diseases classified elsewhere; E03.8 Other specified hypothyroidism; E66.09 Other obesity due to excess calories; Z68.33 Body mass index [BMI] 33.0-33.9, adult
CPT/HCPCS: 99214; G2211

== ENCOUNTER 2023-08-20 09:48 | Outpatient (REF) | payer MEDICARE, SELFPAY ==
[2023-08-20 13:15] LABS: MANUAL DIFF FLAG NO
[2023-08-20 13:22] LABS: Basophils Absolute Auto 0.1 X10*3/uL (0.0-0.2); Basophils Percent Auto 0.8 % (0-2); Eosinophils Absolute Auto 0.2 X10*3/uL (0.0-0.4); Eosinophils Percent Auto 3.1 % (0-4); Hematocrit 39.7 % (37.0-47.0); Hemoglobin 12.9 g/dl (12.0-16.0); Imm Gran Abs Auto 0.01 X10*3/uL (0.00-0.03); Imm Gran Pct Auto 0.2 % (0.0-0.4); Lymphocytes Absolute Auto 1.9 X10*3/uL (1.2-4.9); Lymphocytes Percent Auto 29.1 % (20-40); Mean Corpuscular HGB Conc 32.5 g/dl (31.0-35.0); Mean Corpuscular Hemoglobin 29.3 pg (27.0-33.0); Mean Corpuscular Volume 90.2 fL (80.0-98.0); Mean Platelet Volume 11.6 fL (9.4-12.3); Monocytes Absolute Auto 0.5 X10*3/uL (0.1-1.2); Monocytes Percent Auto 7.1 % (2-11); Neutrophils Absolute Auto 3.9 x10*3/uL (2.0-8.3); Neutrophils Percent Auto 59.7 % (45-73); Platelet Count 263 X10*3/uL (160-400); Red Cell Distribution Width 13.2 % (11.0-16.0); White Blood Count 6.5 X10*3/uL (4.8-10.8)
[2023-08-20 13:54] LABS: Ferritin 138 ng/mL (10-250)
== END 2023-08-20 09:49 | disposition home or self-care (01) ==
LOC: HO.HMGCLDS 09:48
PROVIDERS: PCP Internal Medicine; Visit Provider Internal Medicine
DX: D64.9 Anemia, unspecified (principal)
CPT/HCPCS: 36415; 82728; 85025

== ENCOUNTER 2023-11-21 08:15 | Outpatient (AMB) | payer MEDICARE, SELFPAY ==
--- NOTE | 2023-11-21 08:19 | A.OFFPC_ITS ---
Vital Signs 11/21/23 08:22 Height 5 ft 7 in Weight 202 lb BMI 31.6 BP 132/80 Blood Pressure Location Rt brachial Position Sitting Pulse 57 Pulse Source Pulse Oximeter Pulse Oximetry (%) 97 Oxygen Delivery Method Room Air Intake Visit Reasons: Follow up Allergies rosuvastatin Adverse Reaction (Unknown, Verified 11/21/23 08:20) muscles cramps Medication List - Last Reconciled 11/21/23 by Sofya Andujar MD acetaminophen (Tylenol Extra Strength) 1,000 mg PO Q6H PRN atenolol 50 mg PO DAILY 90 days celecoxib (Celebrex) 200 mg PO DAILY 90 days coenzyme Q10 200 mg PO DAILY fluvastatin 20 mg PO BEDTIME levothyroxine 137 mcg PO DAILY 90 days losartan 50 mg PO BID 90 days tizanidine 2 mg PO BEDTIME PRN 30 days tramadol 50 mg PO BID PRN 30 days Tobacco use date assessed: 11/21/23 Fall risk assessment: No Falls in past year Last assessed Fall Risk: 11/21/23 Dental Screening Dental Screen Date: 11/21/23 Did you have a dental visit in the last 12 months?: Yes Did you have a dental problem in the last 6 months where you did not have access to dental care?: No Was dental information given to patient?: Patient has dentist HPI Follow up HPI Details Patient is 68-year-old female with a history of osteoarthritis multiple joints, hypertension, lipid disorder, obesity Came in for regular follow-up appointment Patient visit with [facility] for left foot pain and gotten cortison e injection which has helped Hemoglobin was repeated in after patient's visit, repeated labs showed normal hemoglobin level Hypertension: patient is on losartan 50 mg b.i.d. and atenolol 50 mg once a day Blood pressure is within reasonable control today, patient is tolerating both medications no side effects Hypothyroidism: Continue levothyroxine 137 mcg Lipid disorder: Continue fluvastatin 20 mg She is also on Celebrex 200 mg daily for arthritic pain and tramadol as needed along with tizanidine Tramadol refill sent Labs to be repeated today Follow-up 3 months [facility] Medical History Bladder disorder Other specified hypothyroidism Arthrosis Lipid disorder Hypertension, essential Surgical History History of bladder surgery History of tonsillectomy Family History Father HTN (hypertension) CVD (cardiovascular disease) Myocardial infarction Mother HTN (hypertension) Acute pancreatitis Brother No problems noted. Sister No problems noted. Sister No problems noted. Daughter No problems noted. Social History Housing: House Alcohol intake: current Alcohol intake frequency: holidays/special occasions only Patient Tobacco Use Status: Former Tobacco user e-Cigarette/Vaping Use: Never Used Second Hand Smoke Exposure: No service: No Current occupational status: employed Current occupation: [employer] handed Cognitive needs: No Hearing needs: No Vision needs: Yes Questionnaire PHQ-9 Over the last 2 weeks, how often have you been bothered by any of the following problems? 1. Little interest or pleasure in doing things: not at all 2. Feeling down, depressed, or hopeless: not at all 3. Trouble falling or staying asleep, or sleeping too much: not at all 4. Feeling tired or having little energy: not at all 5. Poor appetite or overeating: not at all 6. Feeling bad about yourself - or that you are a failure or have let yourself or your family down: not at all 7. Trouble concentrating on things, such as reading the newspaper or watching television: not at all 8. Moving or speaking so slowly that other people could have noticed. Or the opposite - being so fidgety or restless that you have been moving around a lot more than usual: not at all 9. Thoughts that you would be better off or of hurting yourself in some way: not at all Total score: 0 Depression Screening Interpretation: Negative Depression Screening Done: Yes 26940 - PHQ-9 Billing: Yes Source: Developed by Drs. Benson Wilkerson, Kasey Harvey, Jeremy Rasmussen and colleagues, with an educational lakeisha from [employer]. Thrive Questionnaire Date Thrive assessed: 11/14/23 I am a: Patient What is your living situation today?: I have a steady place to live Within the past 12 months, did the food you bought not last and you didn't have the money to get more?: Never true Within the past 12 months, did you worry whether your food would run out before you got money to buy more?: Never true Do you have trouble paying for medicines?: No Do you have trouble getting transportation to medical appointments?: No Do you have trouble paying your heating and electricity bill?: No Do you have trouble taking care of your child, family member or friend?: No Do you have trouble with day-to-day activities such as bathing, preparing meals, shopping, managing finances, etc.?: No Are you currently unemployed and looking for a job?: No Are you interested in more education?: No Please select the resources that you would like help with: None Currently or been in a relationship where the following occur: No concerns reported THRIVE Score: 0 AUDIT C Alcohol Use Questionnaire (AUDIT-C) 1. How often do you have a drink containing alcohol?: Monthly or less 2. How many drinks containing alcohol do you have on a typical day when you are drinking?: 1 or 2 3. How often do you have six or more drinks on one occasion?: Never Total Score: 1 NIKKO-7 AMB Questionnaire NIKKO-7 Date NIKKO - 7 assessed: 08/20/23 Feeling nervous, anxious, or on edge: 0 = Not at all Not being able to stop or control worryin = Not at all Worrying too much about different things: 0 = Not at all Trouble relaxin = Not at all Being so restless that it is hard to sit still: 0 = Not at all Becoming easily annoyed or irritable: 0 = Not at all Feeling afraid as if something awful might happen: 0 = Not at all Total NIKKO-7 score (0-4 normal; 5-9 mild; 10-14 moderate; 15-21 severe): 0 Source: Developed by Drs. Benson Wilkerson, Kasey Harvey, Jeremy Rasmussen and colleagues, with an educational lakeisha from [employer]. Review of Systems Const Denies chills and Denies fever(s) ENT Denies epistaxis and Denies nasal discharge Card Denies chest pain Resp Denies chest congestion, Denies cough and Denies hemoptysis GI Denies diarrhea and Denies nausea Skin/Breast Denies rash Neuro Reports no additional complaints Psych Reports no additional complaints Endo Reports no additional complaints Physical exam (Primary Care) Vital Signs: Last Vital Signs Pulse 57 11/21/23 08:22 BP 132/80 11/21/23 08:22 Pulse Ox 97 11/21/23 08:22 Oxygen Delivery Method Room Air 11/21/23 08:22 BMI result Body Mass Index 31.6 Tobacco/Smoking Status: Tobacco use Status Tobacco use date assessed 11/21/23 11/21/23 08:23 Patient Tobacco Use Status Former Tobacco user 11/21/23 08:23 e-Cigarette/Vaping Use Never Used 11/21/23 08:23 PHQ-9: PHQ-9 Score PHQ-9: Total score 0 11/21/23 08:26 Depression Screening Interpretation: Negative Thrive Assessment: Date of Thrive Assessment Date Thrive assessed 11/14/23 11/21/23 08:23 Currently or been in a relationship where the following occur: No concerns reported Const General: cooperative, comfortable and no acute distress Orientation/consciousness: patient oriented x3 HENMT Head: Yes normocephalic Eyes General: appearance normal, both eyes and all related structures Neck Neck: Yes supple Resp Effort & Inspection: normal respiratory effort, no cough and no stridor Cardio Rhythm: regular rhythm Heart sounds: S1 normal heart sound present and S2 normal heart sound present Skin General skin exam: turgor normal Neuro General: patient oriented x3, tone normal and moves all extremities Extrem Right lower extremity: no edema Left lower extremity: no edema Assessment and Plan Assessment & Plan (1) Hypertension, essential: Code(s): I10 - Essential (primary) hypertension (2) Lipid disorder: Code(s): E78.9 - Disorder of lipoprotein metabolism, unspecified (3) Arthrosis: Code(s): M19.90 - Unspecified osteoarthritis, unspecified site (4) Other specified hypothyroidism: Code(s): E03.8 - Other specified hypothyroidism (5) Obesity due to excess calories: Code(s): E66.09 - Other obesity due to excess calories Qualifiers: Body mass index: BMI 33.0-33.9 Obesity classification: adult class 1 (BMI 30 - 34.9) Serious obesity comorbidity presence: without serious comorbidity Qualified Code(s): E66.09 - Other obesity due to excess calories; Z68.33 - Body mass index [BMI] 33.0-33.9, adult (6) Lumbar spondylosis: Code(s): M47.816 - Spondylosis without myelopathy or radiculopathy, lumbar region (7) DJD (degenerative joint disease), lumbar: Code(s): M47.816 - Spondylosis without myelopathy or radiculopathy, lumbar region Qualifiers: Spinal osteoarthritis complication: without myelopathy or radiculopathy Qualified Code(s): M47.816 - Spondylosis without myelopathy or radiculopathy, lumbar region (8) Osteoarthritis involving multiple joints on both sides of body: Code(s): M15.9 - Polyosteoarthritis, unspecified Plan Patient is 68-year-old female with a history of osteoarthritis multiple joints, hypertension, lipid disorder, obesity Came in for regular follow-up appointment Patient visit with [facility] for left foot pain and gotten cortisone injection which has helped Hemoglobin was repeated in after patient's visit, repeated labs showed normal hemoglobin level Hypertension: patient is on losartan 50 mg b.i.d. and atenolol 50 mg once a day Blood pressure is within reasonable control today, patient is tolerating both medications no side effects Hypothyroidism: Continue levothyroxine 137 mcg Lipid disorder: Continue fluvastatin 20 mg She is also on Celebrex 200 mg daily for arthritic pain and tramadol as needed along with tizanidine Tramadol refill sent Labs to be repeated today Follow-up 3 months Orders: Orders Comprehensive Met. Panel Today E03.8 - Other specified hypothyroidism, E66.09 - Other obesity due to excess calories, E78.9 - Disorder of lipoprotein metabolism, unspecified, I10 - Essential (primary) hypertension, M15.9 - Polyosteoarthritis, unspecified, M19.90 - Unspecified osteoarthritis, unspecified site, M47.816 - Spondylosis without myelopathy or radiculopathy, lumbar region, Z68.33 - Body mass index [BMI] 33.0-33.9, adult LDL Cholesterol Direct Today E03.8 - Other specified hypothyroidism, E66.09 - Other obesity due to excess calories, E78.9 - Disorder of lipoprotein metabolism, unspecified, I10 - Essential (primary) hypertension, M15.9 - Polyosteoarthritis, unspecified, M19.90 - Unspecified osteoarthritis, unspecified site, M47.816 - Spondylosis without myelopathy or radiculopathy, lumbar region, Z68.33 - Body mass index [BMI] 33.0-33.9, adult Complete Blood Count Auto Diff Today E03.8 - Other specified hypothyroidism, E66.09 - Other obesity due to excess calories, E78.9 - Disorder of lipoprotein metabolism, unspecified, I10 - Essential (primary) hypertension, M15.9 - Polyosteoarthritis, unspecified, M19.90 - Unspecified osteoarthritis, unspecified site, M47.816 - Spondylosis without myelopathy or radiculopathy, lumbar region, Z68.33 - Body mass index [BMI] 33.0-33.9, adult TSH reflex Free T4 Today E03.8 - Other specified hypothyroidism, E66.09 - Other obesity due to excess calories, E78.9 - Disorder of lipoprotein metabolism, unspecified, I10 - Essential (primary) hypertension, M15.9 - Polyosteoarthritis, unspecified, M19.90 - Unspecified osteoarthritis, unspecified site, M47.816 - Spondylosis without myelopathy or radiculopathy, lumbar region, Z68.33 - Body mass index [BMI] 33.0-33.9, adult Coding Level of Care Code Est Pt Level 4 (30053) Complex EM visit Add On G2211 Diagnoses Hypertension, essential I10 Lipid disorder E78.9 Arthrosis M19.90 Other specified hypothyroidism E03.8 Class 1 obesity due to excess calories without serious comorbidity with body mass index (BMI) of 33.0 to 33.9 in adult E66.09; Z68.33 Body mass index: BMI 33.0-33.9 Obesity classification: adult class 1 (BMI 30 - 34.9) Serious obesity comorbidity presence: without serious comorbidity Lumbar spondylosis M47.816 Spondylosis of lumbar region without myelopathy or radiculopathy M47.816 Spinal osteoarthritis complication: without myelopathy or radiculopathy Osteoarthritis involving multiple joints on both sides of body M15.9
[2023-11-21 08:22] VITALS: BP 132/80; PULSE 57; O2SAT 97; BMI 31.6
== END 2023-11-21 08:48 | disposition home or self-care (01) ==
PROVIDERS: PCP Internal Medicine; Visit Provider Internal Medicine
DX: I10 Essential (primary) hypertension (principal); E78.9 Disorder of lipoprotein metabolism, unspecified; E66.09 Other obesity due to excess calories; Z68.33 Body mass index [BMI] 33.0-33.9, adult; E03.8 Other specified hypothyroidism; M47.816 Spondylosis without myelopathy or radiculopathy, lumbar region; M15.9 Polyosteoarthritis, unspecified
CPT/HCPCS: 99214; G2211

== ENCOUNTER 2023-11-21 08:36 | Outpatient (REF) | payer MEDICARE, SELFPAY ==
[2023-11-21 10:07] LABS: MANUAL DIFF FLAG NO
[2023-11-21 10:22] LABS: Basophils Absolute Auto 0.1 X10*3/uL (0.0-0.2); Basophils Percent Auto 1.1 % (0-2); Eosinophils Absolute Auto 0.2 X10*3/uL (0.0-0.4); Eosinophils Percent Auto 3.5 % (0-4); Hematocrit 37.8 % (37.0-47.0); Hemoglobin 12.4 g/dl (12.0-16.0); Imm Gran Abs Auto 0.01 X10*3/uL (0.00-0.03); Imm Gran Pct Auto 0.2 % (0.0-0.4); Lymphocytes Absolute Auto 1.7 X10*3/uL (1.2-4.9); Lymphocytes Percent Auto 26.1 % (20-40); Mean Corpuscular HGB Conc 32.8 g/dl (31.0-35.0); Mean Corpuscular Hemoglobin 29.8 pg (27.0-33.0); Mean Corpuscular Volume 90.9 fL (80.0-98.0); Mean Platelet Volume 11.3 fL (9.4-12.3); Monocytes Absolute Auto 0.5 X10*3/uL (0.1-1.2); Monocytes Percent Auto 6.9 % (2-11); Neutrophils Absolute Auto 4.1 x10*3/uL (2.0-8.3); Neutrophils Percent Auto 62.2 % (45-73); Platelet Count 258 X10*3/uL (160-400); Red Blood Count 4.16 X10*6/uL (4.20-5.50); Red Cell Distribution Width 14.2 % (11.0-16.0); White Blood Count 6.6 X10*3/uL (4.8-10.8)
[2023-11-21 10:54] LABS: Alanine Aminotransferase 15 U/L (0-31); Alkaline Phosphatase 54 U/L (39-117); Anion Gap 10 (12-20); Aspartate Amino Transferase 22 U/L (5-31); Bilirubin Total 0.3 mg/dL (0.0-1.0); Blood Urea Nitrogen 19 mg/dL (9-16); Calcium 9.2 mg/dL (8.4-10.2); Carbon Dioxide 25 mmol/L (22-29); Chloride 109 mmol/L (96-108); Estimated Glomerular Filt Rate > 60; Glucose Random 96 mg/dL (60-115); Potassium 4.4 mmol/L (3.3-5.1); Sodium 140 mmol/L (135-145)
[2023-11-21 10:58] LABS: TSH reflex Free T4 1.86 uIU/mL (0.32-4.0)
[2023-11-22 10:08] LABS: LDL Cholesterol Direct 113 mg/dL (<100)
== END 2023-11-21 08:37 | disposition home or self-care (01) ==
LOC: HO.HMGCLDS 08:36
PROVIDERS: PCP Internal Medicine; Visit Provider Internal Medicine
DX: I10 Essential (primary) hypertension (principal); E78.9 Disorder of lipoprotein metabolism, unspecified; E03.8 Other specified hypothyroidism; E66.09 Other obesity due to excess calories; Z68.33 Body mass index [BMI] 33.0-33.9, adult; M47.816 Spondylosis without myelopathy or radiculopathy, lumbar region; M15.9 Polyosteoarthritis, unspecified
CPT/HCPCS: 36415; 80053; 83721; 84443; 85025

== ENCOUNTER 2024-02-16 08:52 | Outpatient (REF) | payer MEDICARE, SELFPAY | END 2024-02-16 08:53 | disposition home or self-care (01) | LOC: HO.HOSX 08:52 | PROVIDERS: Visit Provider Physician Assistant | DX: Z13.89 Encounter for screening for other disorder (principal) ==

== ENCOUNTER 2024-02-17 08:01 | Outpatient (AMB) | payer MEDICARE, SELFPAY ==
--- NOTE | 2024-02-17 08:22 | MHC.OFFVIS ---
Intake Visit Reasons: [facility]Prob - right shoulder pain Intake Note: Megan is a 68 year old right hand dominant female who presents today for a evolution of her right shoulder pain. Patient reports ongoing pain for about a couple months. She mentions that her pain is all over her shoulder. Patient staters that her pain is worse when she is laying down and blow drying her hair. Patient is requesting an injection. Allergies rosuvastatin Adverse Reaction (Unknown, Verified 02/17/24 08:26) muscles cramps HPI HPI NewProb - right shoulder pain: Details: 68-year-old right-hand dominant female who presents in the office today, for an evaluation of right shoulder pain. I last saw the patient in the office on 02/18/23 for right knee pain and was given a cortisone injection in the right knee. While in the office today, the patient complains of right shoulder pain, which has been ongoing for a couple of months. She mentions experiencing pain all over her right shoulder. She reports worsening pain that is prevalent while lying down and blow drying her hair. She is interested in receiving an injection. [facility] Medical History Bladder disorder Other specified hypothyroidism Arthrosis Lipid disorder Hypertension, essential Surgical History History of bladder surgery History of tonsillectomy Family History Father HTN (hypertension) CVD (cardiovascular disease) Myocardial infarction Mother HTN (hypertension) Acute pancreatitis Brother No problems noted. Sister No problems noted. Sister No problems noted. Daughter No problems noted. Social History Housing: House Alcohol intake: current Alcohol intake frequency: holidays/special occasions only Patient Tobacco Use Status: Former Tobacco user e-Cigarette/Vaping Use: Never Used Second Hand Smoke Exposure: No service: No Current occupational status: employed Current occupation: [employer] Cognitive needs: No Hearing needs: No Vision needs: Yes Review of Systems Const All systems reviewed & are unremarkable except as noted in HPI and below Physical Exam Const General: cooperative, healthy appearing and no acute distress Resp Effort & Inspection: normal respiratory effort and able to speak in complete sentences Cardio Peripheral pulses: Peripheral pulses 2+ throughout Skin Lesions: no lesions Rashes: no rashes Extrem Other: Right shoulder: Normal to inspection. No ecchymosis, erythema, or edema. Full shoulder ROM in all planes. Negative cross-body reach. 4-5/5 strength with an empty can. Negative drop arm. NVI. Psych Appearance: well kempt Mental Status: mental status grossly normal Office Procedures AMB Joint Injection/Aspiration Joint Injection/Aspiration Primary Site: right knee Prep: site was prepped using aseptic technique, ethochloride spray was applied and injection warnings given Injected: 80 mg of, DepoMedrol, with 8 mL of (2% plain lido ) and in the subcromial space Approach Used: posterolateral Procedure: The patient tolerated the procedure well, but had some pain with the injection and there was some relief with the local anesthesia Coding 20703 - Large joint Procedure code (CPT) selection complete Assessment & Plan Assessment & Plan (1) Calcific tendonitis of right shoulder: Code(s): M75.31 - Calcific tendinitis of right shoulder Category: Medical Plan Ms. Rod is a 68-year-old right-hand dominant female who presents in the office today, for an evaluation of right shoulder pain. I last saw the patient in the office on 02/18/23 for right knee pain and was given a cortisone injection in the right knee. While in the office today, the patient complains of right shoulder pain, which has been ongoing for a couple of months. She mentions experiencing pain all over her right shoulder. She reports worsening pain that is prevalent while lying down and blow drying her hair. She is interested in receiving an injection. The patient was offered a cortisone injection in the right shoulder with 80 mg of DepoMedrol. The patient was explained the risks, benefits, and alternatives to receiving this injection. After receiving consent for the injection, the patient had the procedure done while in office today. The patient tolerated the procedure well with no complications. Follow-up will be PRN, or sooner if needed. X-rays of the right shoulder, which were obtained while in the office today and were reviewed by me, Gracie Fisher PA-C, revealed: Calcific tendonitis. Orders: Orders XR shoulder RT min 2V Today M25.519 - Pain in unspecified shoulder Patient Instructions: Scribed by Agata Marin, medical officer psychiatry, for Gracie Fisher PA-C on 02/17/2024 at 8:36 am EST. Coding Level of Care Code Est Pt Level 3 (16744) Diagnoses Calcific tendonitis of right shoulder M75.31 CPT Codes Coding - 68959 Large joint: 89793 - Large joint ([id number])
== END 2024-02-17 08:53 | disposition home or self-care (01) ==
PROVIDERS: PCP Internal Medicine; Visit Provider Physician Assistant
DX: M75.31 Calcific tendinitis of right shoulder (principal)
CPT/HCPCS: 20610; 99213

== ENCOUNTER 2024-02-17 09:05 | Outpatient (REF) | payer MEDICARE, SELFPAY ==
--- NOTE | ~2024-02-17 | XR_ITS ---
EXAMINATION: XR SHOULDER, RIGHT CLINICAL INFORMATION: Pain in unspecified shoulder M25.519. COMPARISON: XR Right shoulder 06/01/2019 TECHNIQUE: AP neutral, Grashey, and axial seated views of the right shoulder. FINDINGS: Supraspinatus calcific tendinitis. No acute fracture or malalignment. Mild acromioclavicular osteoarthritis. XR/XR shoulder RT min 2V IMPRESSION: Supraspinatus calcific tendinitis. Electronically signed by: Ruddy Campbell MD 04/13/2024 10:16 AM POLINA MONSIVAIS
== END 2024-02-17 09:06 | disposition home or self-care (01) ==
LOC: HO.HOSX 09:05
PROVIDERS: Visit Provider Physician Assistant
DX: M75.31 Calcific tendinitis of right shoulder (principal)
CPT/HCPCS: 20610; 73030; 99212; J1010; J2003

== ENCOUNTER 2024-02-18 14:02 | Outpatient (AMB) | payer MEDICARE, SELFPAY ==
--- NOTE | 2024-02-18 14:03 | MHC.PC.OV ---
Vital Signs 02/18/24 14:04 Height 5 ft 7 in Weight 201 lb BMI 31.5 BP 136/80 Blood Pressure Location Rt brachial Position Sitting Pulse 70 Pulse Source Pulse Oximeter Pulse Oximetry (%) 96 Oxygen Delivery Method Room Air Intake Visit Reasons: PE Allergies rosuvastatin Adverse Reaction (Unknown, Verified 02/18/24 14:05) muscles cramps Medication List - Last Reconciled 02/18/24 by Sofya Andujar MD acetaminophen (Tylenol Extra Strength) 1,000 mg PO Q6H PRN atenolol 50 mg PO DAILY 90 days celecoxib (Celebrex) 200 mg PO DAILY 90 days coenzyme Q10 200 mg PO DAILY fluvastatin 20 mg PO BEDTIME levothyroxine 137 mcg PO DAILY 90 days losartan 50 mg PO BID 90 days tizanidine 2 mg PO BEDTIME PRN 30 days tramadol 50 mg PO BID PRN 30 days Tobacco use date assessed: 02/18/24 Fall risk assessment: No Falls in past year Last assessed Fall Risk: 02/18/24 Dental Screening Dental Screen Date: 02/18/24 Did you have a dental visit in the last 12 months?: Yes Did you have a dental problem in the last 6 months where you did not have access to dental care?: No Was dental information given to patient?: Patient has dentist HPI PE HPI Details The patient is a 68-year-old female presenting for a physical exam and management of chronic conditions. She reports receiving cortisone injections for the right shoulder arthritis, which she has been diagnosed with previously. X-rays indicated arthritic changes and possible calcium deposits. The patient uses tramadol for pain management but tries to limit its use to non-daily, as needed intervals. She is currently taking Atenolol for hypertension, Celecoxib for arthritis, and Levothyroxine for hypothyroidism, all with good effect and no significant side effects reported. Additionally, she is on Atorvastatin for hyperlipidemia, with acceptable cholesterol levels as per her last evaluation. Her labs from October indicated normal kidney and liver function and no anemia. She manages her chronic pain and stiffness, particularly in the right knee, with medication and has a good functional status, although her BMI is slightly elevated - Engages in exercise occasionally but not regularly. - Has a higher than desirable BMI, indicating the need for weight management. - Lifestyle modifications for exercise and diet were discussed. Health maintenance - Patient had a mammogram scheduled for February. - she is no longer seeing OBGYN for Pap smears. - Last colonoscopy was 6 years ago, scheduled for the next in approximately 4 years. - Received a flu vaccine from pharmacy but not the COVID-19 vaccine. - Labs: October results showed normal kidney function, normal liver enzymes, no anemia, acceptable cholesterol levels, and normal thyroid function. Patient is instructions - Continue current medications as per regimen. - Schedule and complete the upcoming mammogram in February. - Maintain regular exercise to aid in weight management. - Monitor arthritis pain and use medication as directed. - Follow-up for routine wellness and management of chronic conditions. Discussion We discussed the importance of routine follow-up for chronic condition management. The benefit of continued medication adherence for hypertension, arthritis, hyperlipidemia, and hypothyroidism was emphasized. The patient understands the risks and benefits of her current medication regimen, including managing chronic pain with Tramadol as needed. It was confirmed that no additional lab work is necessary at this time due to favorable results in October. I urged the continuation of vaccinations when indicated and encouraged regular physical activity and weight management. She will return in 4 months for follow-up appointment labs are needed before visit [facility] Medical History Bladder disorder Other specified hypothyroidism Arthrosis Lipid disorder Hypertension, essential Surgical History History of bladder surgery History of tonsillectomy Family History Father HTN (hypertension) CVD (cardiovascular disease) Myocardial infarction Mother HTN (hypertension) Acute pancreatitis Brother No problems noted. Sister No problems noted. Sister No problems noted. Daughter No problems noted. 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 Cognitive needs: No Hearing needs: No Vision needs: Yes Questionnaire Thrive Questionnaire Date Thrive assessed: 02/18/24 I am a: Patient What is your living situation today?: I have a steady place to live Within the past 12 months, did the food you bought not last and you didn't have the money to get more?: Never true Within the past 12 months, did you worry whether your food would run out before you got money to buy more?: Never true Do you have trouble paying for medicines?: No Do you have trouble getting transportation to medical appointments?: No Do you have trouble paying your heating and electricity bill?: No Do you have trouble taking care of your child, family member or friend?: No Do you have trouble with day-to-day activities such as bathing, preparing meals, shopping, managing finances, etc.?: No Are you currently unemployed and looking for a job?: No Are you interested in more education?: No Please select the resources that you would like help with: None Currently or been in a relationship where the following occur: No concerns reported THRIVE Score: 0 AUDIT C Alcohol Use Questionnaire (AUDIT-C) 1. How often do you have a drink containing alcohol?: Monthly or less 2. How many drinks containing alcohol do you have on a typical day when you are drinking?: 1 or 2 3. How often do you have six or more drinks on one occasion?: Never Total Score: 1 Score Reviewed/Action Taken: Yes NIKKO-7 AMB Questionnaire NIKKO-7 Date NIKKO - 7 assessed: 08/20/23 Source: Developed by Drs. Benson Wilkerson, Kasey Harvey, Jeremy Rasmussen and colleagues, with an educational lakeisha from [employer] ([employer]). Review of Systems Const Denies chills, Denies fever(s) and Denies headache(s) Eyes Denies blurry vision ENT Denies headache(s), Denies nasal discharge, Denies nasal obstruction, Denies odynophagia and Denies sinus pain Card Denies chest pain at rest and Denies chest pain with activity Resp Denies cough and Denies hemoptysis GI Denies diarrhea, Denies odynophagia, Denies vomiting and Denies hematemesis Reports as per HPI Musc Denies abnormal gait Skin/Breast Reports as per HPI Neuro Denies Neuro-related abnormal movements, Denies Abnormal speech present, Denies abnormal gait, Denies headache(s) and Denies Sensory deficit (Neuro) Psych Denies mood swings and Denies paranoia Endo Reports as per HPI Milton/Lymph Reports as per HPI Aller/Immun Reports as per HPI Physical exam (Primary Care) Vital Signs: Last Vital Signs Pulse 70 02/18/24 14:04 BP 136/80 02/18/24 14:04 Pulse Ox 96 02/18/24 14:04 Oxygen Delivery Method Room Air 02/18/24 14:04 BMI result Body Mass Index 31.5 Tobacco/Smoking Status: Tobacco use Status Tobacco use date assessed 02/18/24 02/18/24 14:11 Patient Tobacco Use Status Former Tobacco user 02/18/24 14:07 e-Cigarette/Vaping Use Never Used 02/18/24 14:07 Thrive Assessment: Date of Thrive Assessment Date Thrive assessed 02/18/24 02/18/24 14:11 Currently or been in a relationship where the following occur: No concerns reported Const General: cooperative, comfortable and no acute distress Orientation/consciousness: patient oriented x3 HENMT Head: Yes normocephalic and Yes atraumatic Eyes General: appearance normal, both eyes and all related structures Pupils: Equal, round and reactive pupils present EOM: EOMs intact bilaterally Neck Neck: Yes supple and No lymphadenopathy Thyroid: Thyroid normal Lymphatic: no lymphadenopathy noted Resp Effort & Inspection: normal respiratory effort and able to speak in complete sentences Auscultation: clear to auscultation bilaterally Cardio Heart sounds: S1 normal heart sound present and S2 normal heart sound present GI Palpation (GI): Soft to palpation and nontender Auscultation: normal bowel sounds General: Yes no CVA tenderness Back/Spine/Pelvis Back: no CVA tenderness Skin General skin exam: elasticity normal and turgor normal Neuro General: patient oriented x3 and gait normal Cranial nerves: Yes Equal, round and reactive pupils present Speech: No Abnormal speech present Sensory Exam: No Sensory deficit (Neuro) Coordination: tandem gait normal and Romberg test negative Extrem General: Yes normal exam except as noted and No edema Coding Level of Care Code Est Pt Level 3 (16095) Est Pt Prev Care >65y(33846) Diagnoses Encounter for general adult medical examination with abnormal findings Z00.01 Osteoarthritis involving multiple joints on both sides of body 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 Spinal osteoarthritis complication: without myelopathy or radiculopathy Other specified hypothyroidism E03.8 Lipid disorder E78.9 Hypertension, essential I10 Assessment & Plan Assessment & Plan (1) Encounter for general adult medical examination with abnormal findings: Code(s): Z00.01 - Encounter for general adult medical examination with abnormal findings Category: Medical (2) Osteoarthritis involving multiple joints on both sides of body: Code(s): M15.9 - Polyosteoarthritis, unspecified Category: Medical (3) DJD (degenerative joint disease), lumbar: Code(s): M47.816 - Spondylosis without myelopathy or radiculopathy, lumbar region Category: Medical Qualifiers: Spinal osteoarthritis complication: without myelopathy or radiculopathy Qualified Code(s): M47.816 - Spondylosis without myelopathy or radiculopathy, lumbar region (4) Other specified hypothyroidism: Code(s): E03.8 - Other specified hypothyroidism Category: Medical (5) Lipid disorder: Code(s): E78.9 - Disorder of lipoprotein metabolism, unspecified Category: Medical (6) Hypertension, essential: Code(s): I10 - Essential (primary) hypertension Category: Medical Plan The patient is a 68-year-old female presenting for a physical exam and management of chronic conditions. She reports receiving cortisone injections for the right shoulder arthritis, which she has been diagnosed with previously. X-rays indicated arthritic changes and possible calcium deposits. The patient uses tramadol for pain management but tries to limit its use to non-daily, as needed intervals. She is currently taking Atenolol for hypertension, Celecoxib for arthritis, and Levothyroxine for hypothyroidism, all with good effect and no significant side effects reported. Additionally, she is on Atorvastatin for hyperlipidemia, with acceptable cholesterol levels as per her last evaluation. Her labs from October indicated normal kidney and liver function and no anemia. She manages her chronic pain and stiffness, particularly in the right knee, with medication and has a good functional status, although her BMI is slightly elevated - Engages in exercise occasionally but not regularly. - Has a higher than desirable BMI, indicating the need for weight management. - Lifestyle modifications for exercise and diet were discussed. Health maintenance - Patient had a mammogram scheduled for February. - she is no longer seeing OBGYN for Pap smears. - Last colonoscopy was 6 years ago, scheduled for the next in approximately 4 years. - Received a flu vaccine from pharmacy but not the Strobe-19 vaccine. - Labs: October results showed normal kidney function, normal liver enzymes, no anemia, acceptable cholesterol levels, and normal thyroid function. Patient is instructions - Continue current medications as per regimen. - Schedule and complete the upcoming mammogram in February. - Maintain regular exercise to aid in weight management. - Monitor arthritis pain and use medication as directed. - Follow-up for routine wellness and management of chronic conditions. Discussion We discussed the importance of routine follow-up for chronic condition management. The benefit of continued medication adherence for hypertension, arthritis, hyperlipidemia, and hypothyroidism was emphasized. The patient understands the risks and benefits of her current medication regimen, including managing chronic pain with Tramadol as needed. It was confirmed that no additional lab work is necessary at this time due to favorable results in October. I urged the continuation of vaccinations when indicated and encouraged regular physical activity and weight management. She will return in 4 months for follow-up appointment labs are needed before visit Orders: Orders Comprehensive Stanton. Panel Fast 3 Months E03.8 - Other specified hypothyroidism, E78.9 - Disorder of lipoprotein metabolism, unspecified, I10 - Essential (primary) hypertension, M15.9 - Polyosteoarthritis, unspecified, M47.816 - Spondylosis without myelopathy or radiculopathy, lumbar region, Z00.01 - Encounter for general adult medical examination with abnormal findings TSH reflex Free T4 3 Months E03.8 - Other specified hypothyroidism, E78.9 - Disorder of lipoprotein metabolism, unspecified, I10 - Essential (primary) hypertension, M15.9 - Polyosteoarthritis, unspecified, M47.816 - Spondylosis without myelopathy or radiculopathy, lumbar region, Z00.01 - Encounter for general adult medical examination with abnormal findings Complete Blood Count Auto Diff 3 Months E03.8 - Other specified hypothyroidism, E78.9 - Disorder of lipoprotein metabolism, unspecified, I10 - Essential (primary) hypertension, M15.9 - Polyosteoarthritis, unspecified, M47.816 - Spondylosis without myelopathy or radiculopathy, lumbar region, Z00.01 - Encounter for general adult medical examination with abnormal findings Lipid Panel 3 Months E03.8 - Other specified hypothyroidism, E78.9 - Disorder of lipoprotein metabolism, unspecified, I10 - Essential (primary) hypertension, M15.9 - Polyosteoarthritis, unspecified, M47.816 - Spondylosis without myelopathy or radiculopathy, lumbar region, Z00.01 - Encounter for general adult medical examination with abnormal findings Vitamin D 25-OH (D2 and D3) 3 Months E03.8 - Other specified hypothyroidism, E78.9 - Disorder of lipoprotein metabolism, unspecified, I10 - Essential (primary) hypertension, M15.9 - Polyosteoarthritis, unspecified, M47.816 - Spondylosis without myelopathy or radiculopathy, lumbar region, Z00.01 - Encounter for general adult medical examination with abnormal findings
[2024-02-18 14:04] VITALS: BP 136/80; PULSE 70; O2SAT 96; BMI 31.5
== END 2024-02-18 14:24 | disposition home or self-care (01) ==
PROVIDERS: PCP Internal Medicine; Visit Provider Internal Medicine
DX: Z00.00 Encounter for general adult medical examination without abnormal findings (principal); M15.9 Polyosteoarthritis, unspecified; M47.816 Spondylosis without myelopathy or radiculopathy, lumbar region; E03.8 Other specified hypothyroidism; E78.9 Disorder of lipoprotein metabolism, unspecified; I10 Essential (primary) hypertension

== ENCOUNTER → 2024-02-18 14:02 | Outpatient (BNVA) | payer MEDICARE, SELFPAY | PROVIDERS: PCP Internal Medicine; Visit Provider Internal Medicine | DX: Z00.01 Encounter for general adult medical examination with abnormal findings (principal); M15.9 Polyosteoarthritis, unspecified; M47.816 Spondylosis without myelopathy or radiculopathy, lumbar region; E03.8 Other specified hypothyroidism; E78.9 Disorder of lipoprotein metabolism, unspecified; I10 Essential (primary) hypertension | CPT/HCPCS: 99397 ==

== ENCOUNTER 2024-03-22 07:33 | Outpatient (REF) | payer MEDICARE, SELFPAY | END 2024-03-22 07:34 | disposition home or self-care (01) | LOC: HO.MAMMO 07:33 | PROVIDERS: PCP Internal Medicine; Visit Provider Internal Medicine | DX: Z12.31 Encounter for screening mammogram for malignant neoplasm of breast (principal) | CPT/HCPCS: 77063; 77067 ==

== ENCOUNTER → 2024-03-22 07:45 | Outpatient (BNV) | payer MEDICARE, SELFPAY | PROVIDERS: PCP Internal Medicine; Visit Provider Internal Medicine | DX: Z12.31 Encounter for screening mammogram for malignant neoplasm of breast (principal) | CPT/HCPCS: 77063; 77067 ==

== ENCOUNTER 2024-06-23 11:45 | Outpatient (AMB) | payer MEDICARE, SELFPAY ==
--- NOTE | 2024-06-23 11:48 | MHC.PC.OV ---
Vital Signs 06/23/24 11:55 Height 5 ft 7 in Weight 201 lb 4 oz BMI 31.5 BP 128/80 Blood Pressure Location Lt brachial Position Sitting Pulse 78 Pulse Source Pulse Oximeter Pulse Oximetry (%) 98 Oxygen Delivery Method Room Air Intake Visit Reasons: 4 months f/up Allergies rosuvastatin Adverse Reaction (Unknown, Verified 06/23/24 11:55) muscles cramps Medication List - Last Reconciled 06/23/24 by Sofya Andujar MD acetaminophen (Tylenol Extra Strength) 1,000 mg PO Q6H PRN atenolol 50 mg PO DAILY 90 days celecoxib (Celebrex) 200 mg PO DAILY 90 days coenzyme Q10 200 mg PO DAILY levothyroxine 137 mcg PO DAILY 90 days losartan 50 mg PO BID 90 days rosuvastatin (Crestor) 20 mg PO DAILY tizanidine 2 mg PO BEDTIME PRN 30 days tramadol 50 mg PO BID PRN 30 days Tobacco use date assessed: 06/23/24 Fall risk assessment: No Falls in past year Last assessed Fall Risk: 06/23/24 Dental Screening Dental Screen Date: 06/23/24 Did you have a dental visit in the last 12 months?: Yes Did you have a dental problem in the last 6 months where you did not have access to dental care?: No Was dental information given to patient?: Patient has dentist HPI 4 months f/up HPI Details Regular follow-up appointment - The patient is a 68-year-old female with a history of hypertension, osteoarthritis, hypothyroidism, lipid disorder, feeling stressed out at home due to 's illness presenting with pain over left trochanteric area for the past few weeks particularly disturbing her when sleeping on her side. She had a prior injection for bursitis, but the pain persists. - Her stress levels have increased due to her 's recent hospitalization, where he faced a blood infection from diabetic complications, causing added anxiety. - She is on multiple medications, including atenolol for hypertension, celebrex and tramadol for pain management, levothyroxine, losartan, and rosuvastatin for cholesterol management. - Previously, she used another statin before starting rosuvastatin three weeks ago for hyperlipidemia. Due for labs I am starting her on Lexapro 10 mg tablets, patient is to start with half a tablet for a week and then increase it to 10 mg once a day Medications - Atenolol 50 mg for Hypertension - Celebrex for Pain Management - Levothyroxine for Hypothyroidism - Losartan for Hypertension - Rosuvastatin for Hyperlipidemia (recently started) - Tramadol, twice daily for Pain Management Problem List - Hip Bursitis - Arterial Hypertension - Hyperlipidemia - Diabetes Mellitus Type 2 - Osteoarthritis - Chronic Lower Back Pain - Stress Diagnostic results - Lumbar spine x-ray (2022): arthritis in the lower back Patient Instructions - Start the prescribed medication for stress management with half a tablet daily for one week. If no allergic reaction occurs and further symptom control is needed, increase to a full tablet. - Follow up with an sales and in home delivery specialist at [facility] for further management of hip bursitis. An injection may be required. - Schedule and complete fasting blood tests at your earliest convenience. - Continue current medications as prescribed and monitor for any side effects. Review of Systems General: No fever no chills neurological: No headaches no dizziness ear nose throat: No sore throat no hearing difficulty no ear pain cardiovascular: No syncope, no chest pain, no palpitations gastrointestinal: No nausea vomiting or diarrhea endocrine: No polyuria polydipsia no heat intolerance genitourinary: No dysuria skin: No new complaints Physical Exam general: No acute distress HEENT: No acute findings neck: Supple respiratory system: Able to talk in full sentences, no audible wheeze no stridor cardiovascular: S1-S2 gastrointestinal: No pain extremities: Pain in the left trochanteric area, likely bursitis VISUAL EFFECTS ARTIST: Alert awake oriented x3 motor sensory intact skin: Normal turgor PFSH Medical History Bladder disorder Other specified hypothyroidism Arthrosis Lipid disorder Hypertension, essential Surgical History History of bladder surgery History of tonsillectomy Family History Father HTN (hypertension) CVD (cardiovascular disease) Myocardial infarction Mother HTN (hypertension) Acute pancreatitis Brother No problems noted. Sister No problems noted. Sister No problems noted. Daughter No problems noted. 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 1. Little interest or pleasure in doing things: not at all 2. Feeling down, depressed, or hopeless: not at all 3. Trouble falling or staying asleep, or sleeping too much: not at all 4. Feeling tired or having little energy: not at all 5. Poor appetite or overeating: not at all 6. Feeling bad about yourself - or that you are a failure or have let yourself or your family down: not at all 7. Trouble concentrating on things, such as reading the newspaper or watching television: not at all 8. Moving or speaking so slowly that other people could have noticed. Or the opposite - being so fidgety or restless that you have been moving around a lot more than usual: not at all 9. Thoughts that you would be better off or of hurting yourself in some way: not at all Total score: 0 Depression Screening Interpretation: Negative Depression Screening Done: Yes 11995 - PHQ-9 Billing: Yes Source: Developed by Drs. Benson Wilkerson, Kasey Harvey, Jeremy Rasmussen and colleagues, with an educational lakeisha from [employer]. Thrive Questionnaire Date Thrive assessed: 06/23/24 I am a: Patient What is your living situation today?: I have a steady place to live Within the past 12 months, did the food you bought not last and you didn't have the money to get more?: Never true Within the past 12 months, did you worry whether your food would run out before you got money to buy more?: Never true Do you have trouble paying for medicines?: No Do you have trouble getting transportation to medical appointments?: No Do you have trouble paying your heating and electricity bill?: No Do you have trouble taking care of your child, family member or friend?: I choose not to answer this question Do you have trouble with day-to-day activities such as bathing, preparing meals, shopping, managing finances, etc.?: No Are you currently unemployed and looking for a job?: No Are you interested in more education?: No Please select the resources that you would like help with: None Currently or been in a relationship where the following occur: No concerns reported THRIVE Score: 0 AUDIT C Alcohol Use Questionnaire (AUDIT-C) 1. How often do you have a drink containing alcohol?: Monthly or less 2. How many drinks containing alcohol do you have on a typical day when you are drinking?: 1 or 2 3. How often do you have six or more drinks on one occasion?: Never Total Score: 1 Score Reviewed/Action Taken: Yes NIKKO-7 AMB Questionnaire NIKKO-7 Date NIKKO - 7 assessed: 06/23/24 Feeling nervous, anxious, or on edge: 0 = Not at all Not being able to stop or control worryin = Not at all Worrying too much about different things: 0 = Not at all Trouble relaxin = Not at all Being so restless that it is hard to sit still: 0 = Not at all Becoming easily annoyed or irritable: 0 = Not at all Feeling afraid as if something awful might happen: 0 = Not at all Total NIKKO-7 score (0-4 normal; 5-9 mild; 10-14 moderate; 15-21 severe): 0 Source: Developed by Drs. Benson Wilkerson, Kasey Harvey, Jeremy Rasmussen and colleagues, with an educational lakeisha from [employer]. NIKKO-7 Assessment Billing NIKKO-7 Assessment Tool: NIKKO-7 Assessment 74390 Physical exam (Primary Care) Vital Signs: Last Vital Signs Pulse 78 06/23/24 11:55 BP 128/80 06/23/24 11:55 Pulse Ox 98 06/23/24 11:55 Oxygen Delivery Method Room Air 06/23/24 11:55 BMI result Body Mass Index 31.5 Tobacco/Smoking Status: Tobacco use Status Tobacco use date assessed 06/23/24 06/23/24 11:59 Patient Tobacco Use Status Former Tobacco user 06/23/24 11:50 e-Cigarette/Vaping Use Never Used 06/23/24 11:50 PHQ-9: PHQ-9 Score PHQ-9: Total score 0 06/23/24 11:59 Depression Screening Interpretation: Negative Thrive Assessment: Date of Thrive Assessment Date Thrive assessed 06/23/24 06/23/24 11:59 Currently or been in a relationship where the following occur: No concerns reported Coding Level of Care Code Est Pt Level 4 (44263) Complex EM visit Add On G2211 Diagnoses Trochanteric bursitis, left hip M70.62 Stress at home F43.9 Osteoarthritis involving multiple joints on both sides of body 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 Spinal osteoarthritis complication: without myelopathy or radiculopathy Other specified hypothyroidism E03.8 Lipid disorder E78.9 Hypertension, essential I10 Additional Codes NIKKO-7 Assessment Billing - NIKKO-7 Assessment Tool: NIKKO-7 Assessment 73303 ([id number]) PHQ-9 - 47134 - PHQ-9 Billing: Yes ([id number]) Assessment & Plan Assessment & Plan (1) Trochanteric bursitis, left hip: Code(s): M70.62 - Trochanteric bursitis, left hip Category: Medical (2) Stress at home: Code(s): F43.9 - Reaction to severe stress, unspecified Category: Social Hx (3) Osteoarthritis involving multiple joints on both sides of body: Code(s): M15.9 - Polyosteoarthritis, unspecified Category: Medical (4) DJD (degenerative joint disease), lumbar: Code(s): M47.816 - Spondylosis without myelopathy or radiculopathy, lumbar region Category: Medical Qualifiers: Spinal osteoarthritis complication: without myelopathy or radiculopathy Qualified Code(s): M47.816 - Spondylosis without myelopathy or radiculopathy, lumbar region (5) Other specified hypothyroidism: Code(s): E03.8 - Other specified hypothyroidism Category: Medical (6) Lipid disorder: Code(s): E78.9 - Disorder of lipoprotein metabolism, unspecified Category: Medical (7) Hypertension, essential: Code(s): I10 - Essential (primary) hypertension Category: Medical Plan Regular follow-up appointment - The patient is a 68-year-old female with a history of hypertension, osteoarthritis, hypothyroidism, lipid disorder, feeling stressed out at home due to 's illness presenting with pain over left trochanteric area for the past few weeks particularly disturbing her when sleeping on her side. She had a prior injection for bursitis, but the pain persists. - Her stress levels have increased due to her 's recent hospitalization, where he faced a blood infection from diabetic complications, causing added anxiety. - She is on multiple medications, including atenolol for hypertension, celebrex and tramadol for pain management, levothyroxine, losartan, and rosuvastatin for cholesterol management. - Previously, she used another statin before starting rosuvastatin three weeks ago for hyperlipidemia. Due for labs I am starting her on Lexapro 10 mg tablets, patient is to start with half a tablet for a week and then increase it to 10 mg once a day Medications - Atenolol 50 mg for Hypertension - Celebrex for Pain Management - Levothyroxine for Hypothyroidism - Losartan for Hypertension - Rosuvastatin for Hyperlipidemia (recently started) - Tramadol, twice daily for Pain Management Problem List - Hip Bursitis - Arterial Hypertension - Hyperlipidemia - Diabetes Mellitus Type 2 - Osteoarthritis - Chronic Lower Back Pain - Stress Diagnostic results - Lumbar spine x-ray (2022): arthritis in the lower back Patient Instructions - Start the prescribed medication for stress management with half a tablet daily for one week. If no allergic reaction occurs and further symptom control is needed, increase to a full tablet. - Follow up with an sales and in home delivery specialist at [facility] for further management of hip bursitis. An injection may be required. - Schedule and complete fasting blood tests at your earliest convenience. - Continue current medications as prescribed and monitor for any side effects. Orders: Referrals Orthopedics Referral M70.62 - Trochanteric bursitis, left hip Medications: New escitalopram oxalate (Lexapro) 10 mg PO DAILY 30 tabs 0RF Refilled tramadol 50 mg PO BID 30 days PRN 60 tabs 0RF pain back tizanidine 2 mg PO BEDTIME 30 days PRN 30 tabs 0RF muscle spasticity coenzyme Q10 200 mg PO DAILY 90 caps 2RF rosuvastatin (Crestor) 20 mg PO DAILY 90 tabs 0RF
[2024-06-23 11:55] VITALS: BP 128/80; PULSE 78; O2SAT 98; BMI 31.5
--- OUTSIDE RECORDS SUMMARY | 2024-06-23 14:17 | XMS_ITS | Patient Health Record ---
Author Organization [facility] Address [address] [place] [address] Care Team Providers Care Slasher Operator Name Role Phone Con [facility] Primary [facility] Provider Jo Ann Ramon Unavailable [phone] Allergies No Known Allergies Reason For Referral No Information Medications Medication SIG (Take, Route, Frequency, Duration) Notes Start Date End Date Status Celecoxib 200 MG 1 capsule with food Orally Once a day for 30 day(s) Active CoQ10 200 MG 1 capsule with a krystle l Orally Once a day for 30 day(s) Active Levothyroxine Sodium 150 MCG 1 tablet in the morning on an empty stomach Orally Once a day for 30 day(s) Active Atenolol-Chlorthalidone 50-25 MG 1 tablet Orally Once a day for 30 day(s) Active Fluvastatin Sodium 20 MG 1 capsule in th e evening Orally Once a day for 30 day(s) Active Social History Tobacco Use: Social History Observation Description Date Details (start date - stop date) Former Smoker NA - NA Tobacco Use/Smoking Question Answer Notes Are you a: former smoker Additional Findings: Tobacco Non-User Current no n-smoker Alcohol Screen Question Answer Notes Did you have a drink containing alcohol in the p ast year? No Points 0 Interpretation Negative Tobacco use other than smoking: Question Answer Notes Are you an other tobacco user? No Problems Problem Type SNOMED Code ICD Code Onset Dates Problem Status W/U Status Risk Notes Problem Localized, primary osteoarthritis of the ankle and/or foot (381147314) Primary osteoarthrit is, left ankle and foot (M19.072) Active confirmed Plan Of Treatment Pending Test Test Name Order Date X ray : Foot, left 3V 05/09/2020 Insurance Providers Payer Name Payer Address Payer Phone Subscriber Number Group Number Insured Name Patient Relationship to Insured Coverage Start Date Coverage End Date Blue Benefits [address] [address] [place] [address] [id number] Megan Rod Self - patient is the insured Medical (General) History Medical History History ICD Code arthritis back,hip, knee pain high blood pressure thyroid chicken pox Menieres disease Surgical History Surgery Date(Month/Year) bladder suspension
== END 2024-06-23 12:19 | disposition home or self-care (01) ==
LOC: HO.HMCC 11:46
PROVIDERS: PCP Internal Medicine; Visit Provider Internal Medicine
DX: M70.62 Trochanteric bursitis, left hip (principal); F43.9 Reaction to severe stress, unspecified; M15.9 Polyosteoarthritis, unspecified; M47.816 Spondylosis without myelopathy or radiculopathy, lumbar region; E03.8 Other specified hypothyroidism; E78.9 Disorder of lipoprotein metabolism, unspecified; I10 Essential (primary) hypertension

== ENCOUNTER → 2024-06-23 11:45 | Outpatient (BNVA) | payer MEDICARE, SELFPAY | PROVIDERS: PCP Internal Medicine; Visit Provider Internal Medicine | DX: M70.62 Trochanteric bursitis, left hip (principal); F43.9 Reaction to severe stress, unspecified; M15.9 Polyosteoarthritis, unspecified; M47.816 Spondylosis without myelopathy or radiculopathy, lumbar region; E03.8 Other specified hypothyroidism; E78.9 Disorder of lipoprotein metabolism, unspecified; I10 Essential (primary) hypertension | CPT/HCPCS: 96127; 99212 ==

== ENCOUNTER 2024-06-24 06:37 | Outpatient (REF) | payer MEDICARE, SELFPAY ==
[2024-06-24 10:00] LABS: MANUAL DIFF FLAG NO
[2024-06-24 10:04] LABS: Basophils Absolute Auto 0.1 X10*3/uL (0.0-0.2); Basophils Percent Auto 0.7 % (0-2); Eosinophils Absolute Auto 0.2 X10*3/uL (0.0-0.4); Eosinophils Percent Auto 3.1 % (0-4); Hematocrit 38.1 % (37.0-47.0); Hemoglobin 12.6 g/dl (12.0-16.0); Imm Gran Abs Auto 0.01 X10*3/uL (0.00-0.03); Imm Gran Pct Auto 0.1 % (0.0-0.4); Lymphocytes Absolute Auto 2.3 X10*3/uL (1.2-4.9); Mean Corpuscular HGB Conc 33.1 g/dl (31.0-35.0); Mean Corpuscular Hemoglobin 30.1 pg (27.0-33.0); Mean Corpuscular Volume 90.9 fL (80.0-98.0); Mean Platelet Volume 11.2 fL (9.4-12.3); Monocytes Absolute Auto 0.4 X10*3/uL (0.1-1.2); Monocytes Percent Auto 6.3 % (2-11); Neutrophils Absolute Auto 3.8 x10*3/uL (2.0-8.3); Neutrophils Percent Auto 55.8 % (45-73); Platelet Count 237 X10*3/uL (160-400); Red Blood Count 4.19 X10*6/uL (4.20-5.50); Red Cell Distribution Width 13.2 % (11.0-16.0); White Blood Count 6.8 X10*3/uL (4.8-10.8)
[2024-06-24 10:54] LABS: Alanine Aminotransferase 19 U/L (0-31); Albumin Level 4.1 g/dL (3.5-5.0); Alkaline Phosphatase 49 U/L (39-117); Anion Gap 7 (12-20); Aspartate Amino Transferase 23 U/L (5-31); Bilirubin Total 0.4 mg/dL (0.0-1.0); Blood Urea Nitrogen 19 mg/dL (9-16); Calcium 9.3 mg/dL (8.4-10.2); Carbon Dioxide 28 mmol/L (22-29); Chloride 110 mmol/L (96-108); Cholesterol 144 mg/dL (<200); Estimated Glomerular Filt Rate > 60; Glucose Fasting 96 mg/dL (60-99); HDL Cholesterol 60 mg/dL (>40); LDL Cholesterol Calculated 72 mg/dL (<100); Potassium 4.1 mmol/L (3.3-5.1); Sodium 141 mmol/L (135-145); TSH reflex Free T4 3.97 uIU/mL (0.32-4.0); Total Protein 6.8 g/dL (6.5-8.0); Triglycerides 64 mg/dL (<150)
[2024-06-30 19:19] LABS: Vitamin D 25-OH, D2 <4 ng/mL; Vitamin D 25-OH, D3 27 ng/mL; Vitamin D 25-OH, Total 27 ng/mL (30-100)
== END 2024-06-24 06:38 | disposition home or self-care (01) ==
LOC: HO.HMGCLDS 06:37
PROVIDERS: PCP Internal Medicine; Visit Provider Internal Medicine
DX: Z00.01 Encounter for general adult medical examination with abnormal findings (principal); M15.9 Polyosteoarthritis, unspecified; M47.816 Spondylosis without myelopathy or radiculopathy, lumbar region; E03.8 Other specified hypothyroidism; E78.9 Disorder of lipoprotein metabolism, unspecified; I10 Essential (primary) hypertension
CPT/HCPCS: 36415; 80053; 80061; 82306; 84443; 85025

== ENCOUNTER 2024-07-08 13:49 | Outpatient (REF) | payer MEDICARE, SELFPAY ==
--- NOTE | ~2024-07-08 | XR_ITS ---
CLINICAL HISTORY: M25.559 - Pain in unspecified hip 3 views, pelvis and left hip Comparison: None Findings: No acute fracture or dislocation. No significant arthritic change. The soft tissues are unremarkable. IMPRESSION: No acute findings. This document has been electronically signed by: Shaan Myers MD on 07/09/2024 11:28:28
--- OUTSIDE RECORDS SUMMARY | 2024-07-09 14:12 | XMS_ITS | Patient Health Record ---
Author Organization [facility] Address [address] [place] [address] Care Team Providers Care Program Research Specialist Name Role Phone Con [facility], [facility] Primary [facility] Provider Jo Ann Ramon Unavailable [phone] Allergies No Known Allergies Reason For Referral [...] primary osteoarthritis of the ankle and/or foot ([id number]) Primary osteoarthrit is, left ankle and foot (M19.072) Active confirmed Plan Of Treatment Pending Test Test Name Order Date X ray : Foot, left 3V 05/09/2020 Insurance Providers Payer Name Payer Address Payer Phone Subscriber Number Group Number Insured Name Patient Relationship to Insured Coverage Start Date Coverage End Date Blue [place] [address] [address] [place] [address] [id number] 2 Megan Rod Self - patient is the insured Medical (General) History Medical History History ICD Code arthritis back,hip, knee pain high blood pressure thyroid chicken pox Menieres disease Surgical History Surgery Date(Month/Year) bladder suspension
== END 2024-07-08 13:50 | disposition home or self-care (01) ==
LOC: HO.HOSX 13:49
PROVIDERS: Visit Provider Physician Assistant
DX: M25.552 Pain in left hip (principal); M70.62 Trochanteric bursitis, left hip
CPT/HCPCS: 20610; 73502; 99212; J1010; J2003

== ENCOUNTER 2024-07-08 14:56 | Outpatient (AMB) | payer MEDICARE, SELFPAY ==
[2024-07-08 15:14] VITALS: BMI 31.5
--- NOTE | 2024-07-08 15:14 | A.OFFVIS_ITS ---
Vital Signs 07/08/24 15:14 Height 5 ft 7 in Weight 201 lb BMI 31.5 Intake Visit Reasons: OV-Trochanteric bursitis, left hip Intake Note: Kathryn is a 68 year old female who presents today for a follow up of her left hip bursitis.Patient reports that she has had ongoing left hip pain for a few months now. She reports that she feels pain along the lateral aspect of the hip, worsens with activity and laying on the left side. She is taking Tramadol - she takes it for her lower back as well as her hip but only feels mild relief. She gets occasional numbness and tingling. She has had previous bursa injections that were helpful years ago and she would like to repeat injections today. HPI HPI OV-Trochanteric bursitis, left hip: Details: Ms. Rod is a 68 year old female who presents today for a follow up of her left hip bursitis. Patient reports that she has had ongoing left hip pain for a few months now. She reports that she feels pain along the lateral aspect of the hip, worsens with activity and laying on the left side. She is taking Tramadol - she takes it for her lower back as well as her hip but only feels mild relief. She gets occasional numbness and tingling. She has had previous bursa injections that were helpful years ago and she would like to repeat injections today. [facility] Medical History Bladder disorder Other specified hypothyroidism Arthrosis Lipid disorder Hypertension, essential Surgical History History of bladder surgery History of tonsillectomy Family History Father HTN (hypertension) CVD (cardiovascular disease) Myocardial infarction Mother HTN (hypertension) Acute pancreatitis Brother No problems noted. Sister No problems noted. Sister No problems noted. Daughter No problems noted. 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 Tenderness to palpation over the greater trochanteric bursa. 5/5 strength with resisted hip flexion, knee extension, abduction, and abduction. Able to perform straight leg raise. NVI. Office Procedures AMB Joint Injection/Aspiration Joint Injection/Aspiration Primary Site: other (Left hip greater trochanteric bursa) Prep: site was prepped using aseptic technique, ethochloride spray was applied and injection warnings given Injected: 80 mg of, DepoMedrol, with 8 mL of (2% plain lidocaine) and other (Greater trochanteric bursa) Approach Used: other (Lateral) Procedure: The patient tolerated the procedure well, but had some pain with the injection and there was some relief with the local anesthesia Coding 71527 - Glenohumeral/Tronchanteric Bursa/Intraarticular Procedure code (CPT) selection complete Assessment & Plan Assessment & Plan (1) Greater trochanteric bursitis of left hip: Code(s): M70.62 - Trochanteric bursitis, left hip Category: Medical Plan Ms. Rod is a 68 year old female who presents today for a follow up of her left hip bursitis. Patient reports that she has had ongoing left hip pain for a few months now. She reports that she feels pain along the lateral aspect of the hip, worsens with activity and laying on the left side. She is taking Tramadol - she takes it for her lower back as well as her hip but only feels mild relief. She gets occasional numbness and tingling. She has had previous bursa injections that were helpful years ago and she would like to repeat injections today. The patient was offered a cortisone injection in the left hip greater trochanteric bursa with 80 mg of DepoMedrol. The patient was explained the risks, benefits, and alternatives to receiving this injection. After receiving consent for the injection, the patient had the procedure done while in the office today. The patient tolerated the procedure well with no complications. Follow-up will be p.r.n., or sooner if needed. X-rays of the left hip and pelvis which were obtained while in the office today and were reviewed by me, Gracie Fisher PA-C, revealed negative for any acute fracture dislocation. Orders: Orders XR hip LT min 2V Today M25.559 - Pain in unspecified hip Coding Level of Care Code Est Pt Level 3 (94221) Diagnoses Greater trochanteric bursitis of left hip M70.62 CPT Codes Coding - Joint 7: 15225 - Glenohumeral/Tronchanteric Bursa/Intraarticular ([id number])
--- OUTSIDE RECORDS SUMMARY | 2024-07-08 17:31 | XMS_ITS | Patient Health Record ---
Author Organization [facility] Address [address] [place] [address] Care Team Providers Care American Sign Language Interpreter Name Role Phone Con [facility] Jo Ann Ramon Unavailable [phone] Allergies No Known Allergies Reason For Referral [...] primary osteoarthritis of the ankle and/or foot ([id number]) Primary osteoarthrit is, left ankle and foot (M19.072) Active confirmed Plan Of Treatment Pending Test Test Name Order Date X ray : Foot, left 3V 05/09/2020 Insurance Providers Payer Name Payer Address Payer Phone Subscriber Number Group Number Insured Name Patient Relationship to Insured Coverage Start Date Coverage End Date Blue Benefits [address] [address] [place] [address] [id number] 2 Megan Rod Self - patient is the insured Medical (General) History Medical History History ICD Code arthritis back,hip, knee pain high blood pressure thyroid chicken pox Menieres disease Surgical History Surgery Date(Month/Year) bladder suspension
== END 2024-07-08 15:30 | disposition home or self-care (01) ==
LOC: HO.HOS 14:57
PROVIDERS: PCP Internal Medicine; Visit Provider Physician Assistant
DX: M70.62 Trochanteric bursitis, left hip (principal)
CPT/HCPCS: 20610; 99213

== ENCOUNTER → 2024-07-08 15:05 | Outpatient (BNV) | payer MEDICARE, SELFPAY | PROVIDERS: Visit Provider Radiology Diagnostic Radiology | DX: M25.552 Pain in left hip (principal) | CPT/HCPCS: 73502 ==

== ENCOUNTER 2024-08-31 10:43 | Outpatient (AMB) | payer MEDICARE, SELFPAY ==
--- NOTE | 2024-08-31 10:58 | A.OFFVIS_ITS ---
Intake Visit Reasons: right shoulder injection (80), last inj 02/17/24 Intake Note: Megan is a 68 year old right hand dominant female who presents today for a injection in her right shoulder, last injection 02/17/24. Patient reports that he last injection gave her relief. Allergies No Known Allergies Allergy (Verified 08/31/24 11:08) HPI HPI right shoulder injection (80), last inj 02/17/24: Details: Ms. Marcel mckeon is a 68-year-old female who presents to the office today for follow up of right shoulder chronic pain. She last received a cortisone injection in the right shoulder on 02/17/2024 and is looking to repeat injection as this gave her good relief. PENDING SALE TO [facility] Medical History Bladder disorder Other specified hypothyroidism Arthrosis Lipid disorder Hypertension, essential Surgical History History of bladder surgery History of tonsillectomy Family History Father HTN (hypertension) CVD (cardiovascular disease) Myocardial infarction Mother HTN (hypertension) Acute pancreatitis Brother No problems noted. Sister No problems noted. Sister No problems noted. Daughter No problems noted. 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 No ecchymosis, erythema, or edema. Full shoulder ROM in all planes. Negative cross-body reach. 4-5/5 strength with an empty can. Negative drop arm. NVI. Psych Appearance: well kempt Mental Status: mental status grossly normal Office Procedures AMB Joint Injection/Aspiration Joint Injection/Aspiration Primary Site: right shoulder Prep: site was prepped using aseptic technique, ethochloride spray was applied and injection warnings given Injected: 80 mg of, DepoMedrol, with 8 mL of (2% plain lidocaine) and in the subcromial space Approach Used: posterolateral Procedure: The patient tolerated the procedure well, but had some pain with the injection and there was some relief with the local anesthesia Coding - Large joint Procedure code (CPT) selection complete Assessment & Plan Assessment & Plan (1) Calcific tendonitis of right shoulder: Code(s): M75.31 - Calcific tendinitis of right shoulder Category: Medical Plan Ms. Rod this is a 68-year-old female who presents to the office today for follow up of right shoulder chronic pain. She last received a cortisone injection in the right shoulder on 02/17/2024 and is looking to repeat injection as this gave her good relief. The patient was offered a cortisone injection in the right shoulder with 80 mg of DepoMedrol. The patient was explained the risks, benefits, and alternatives to receiving this injection. After receiving consent for the injection, the patient had the procedure done while in the office today. The patient tolerated the procedure well with no complications. Follow-up will be p.r.n., or sooner if needed Coding Level of Care Code Est Pt Level 3 (30744) Diagnoses Calcific tendonitis of right shoulder M75.31 CPT Codes Coding - 96920 Large joint: 30899 - Large joint ([id number])
--- OUTSIDE RECORDS SUMMARY | 2024-08-31 12:23 | XMS_ITS | Patient Health Record ---
Author Organization [facility] Address [address] [place] [address] Care Team Providers Care Die Trimmer Name Role Phone Con [facility], [facility] Primary [facility] Provider Jo Ann Ramon Unavailable [phone] Allergies No Known Allergies Reason For Referral [...] Problem Status W/U Status Risk Notes Problem Primary osteoarthritis , left ankle and foot (M19.072) Active confirmed Plan Of Treatment Pending Test Test Name Order Date X ray : Foot, left 3V 05/09/2020 Insurance Providers Payer Name Payer Address Payer Phone Subscriber Number Group Number Insured Name Patient Relationship to Insured Coverage Start Date Coverage End Date Blue Benefits [address] [address] [place] [address] [id number] Megan Rod Self - patient is the insured Medical (General) History Medical History History ICD Code arthritis back,hip, knee pain high blood pressure thyroid chicken pox Menieres disease Surgical History Surgery Date(Month/Year) bladder suspension
== END 2024-08-31 11:10 | disposition home or self-care (01) ==
LOC: HO.HOS 10:44
PROVIDERS: PCP Internal Medicine; Visit Provider Physician Assistant
DX: M75.31 Calcific tendinitis of right shoulder (principal)
CPT/HCPCS: 20610; 99213

== ENCOUNTER → 2024-08-31 10:43 | Outpatient (BNVA) | payer MEDICARE, SELFPAY | PROVIDERS: PCP Internal Medicine; Visit Provider Physician Assistant | DX: M75.31 Calcific tendinitis of right shoulder (principal) | CPT/HCPCS: 20610; 99212; J1010; J2003 ==

== ENCOUNTER 2024-10-06 08:15 | Outpatient (AMB) | payer MEDICARE, SELFPAY ==
--- OUTSIDE RECORDS SUMMARY | 2024-10-06 08:19 | XMS_ITS | Patient Health Record ---
Author Organization [facility] Address [address] [place] [id number] Care Team Providers Care Edi Architect Name Role Phone Alba(inactive) Salo SANTIAGO Primary Care Provider U Benson Lux Unavailable [phone] Reason For Referral No Information Medications Medication SIG (Take, Route, Frequency, Duration) Notes Start Date End Date Status Aleve 220 MG 1 tablet as needed Orally prn Active Atenolol 50 MG 1 tablet Orally Once a day Active Levothyroxine Sodium 150 MCG 1 capsule o n an empty stomach in the morning Orally Once a day Active CeleBREX 200 MG 1 capsule with food Orally Once a day Active Social History Tobacco Use: Social History Observation Description Date Details (start date - stop date) Former Smoker NA - NA Tobacco Use/Smoking Question Answer Notes Patient is a former smoker How long has it been since you last smoked? > 10 years Alcohol Screen Question Answer Notes Did you have a drink contain ing alcohol in the past year? Yes How often did you have a dri nk containing alcohol in the past year? Monthly or less (1 point) How many drinks did you have on a typical day when you were drinking in the past year? 1 or 2 drinks (0 point) How often did you have 6 or more drinks on one occasion in the past year? Never (0 point) Points 1 Interpretation Negative Section Notes: Nonsmoker; no sig alcohol Problems Problem Type SNOMED Code ICD Code Onset Dates Problem Status W/U Status Risk Notes Problem 633530420 Encounter for screening for malignant neoplasm of colon (Z12.11) Active confirmed Problem 138488319 Preprocedural examination (Z01.818) Active confirmed Plan Of Treatment Future Test Test Name Order Date COLONOSCOPY 01/22/2017 Insurance Providers Payer Name Payer Address Payer Phone Subscriber Number Group Number Insured Name Patient Relationship to Insured Coverage Start Date Coverage End Date [employer] [address] [facility] [place] [phone] [id number] [employer] Self - patient is the insured Medical (General) History Medical History History ICD Code Denies [place],DM,CVA,Lung disease,renal dise ase Arthritis On Atenolol for palpitations Hypothyroidism Neg. screening colonoscopy i n 05/2007--diverticulosis and internal hemorrhoids Surgical History Surgery Date(Month/Year) Bladder suspension Tonsillectomy
--- OUTSIDE RECORDS SUMMARY | 2024-10-06 08:19 | XMS_ITS | Patient Health Record ---
Author Organization [facility] Address [address] [place] [address] Care Team Providers Care Rip Tailer Name Role Phone Con [facility], [facility] Primary [facility] Provider Jo Ann Ramon Unavailable [phone] Allergies No Known Allergies Reason For Referral No Information Medications Medication SIG (Take, Route, Frequency, Duration) Notes Start Date End Date Status Celecoxib 200 MG 1 capsule with food Orally Once a day; Duration: 30 day(s) Active CoQ10 200 MG 1 capsule with a krystle l Orally Once a day; Duration: 30 day(s) Active Levothyroxine Sodium 150 MCG 1 tablet in the morning on an empty stomach Orally Once a day; Duration: 30 day(s) Active Atenolol-Chlorthalidone 50-25 MG 1 tablet Orally Once a day; Duration: 30 day(s) Active Fluvastatin Sodium 20 MG 1 capsule in th e evening Orally Once a day; Duration: 30 day(s) Active Social History Tobacco Use: [...] primary osteoarthritis of the ankle and/or foot ([id number]) Primary osteoarthrit is, left ankle and foot (M19.072) Active confirmed Plan Of Treatment Pending Test Test Name Order Date X ray : Foot, left 3V 05/09/2020 Insurance Providers Payer Name Payer Address Payer Phone Subscriber Number Group Number Insured Name Patient Relationship to Insured Coverage Start Date Coverage End Date Blue Benefits [address] [address] [place] [address] [id number] Megan Rod Self - patient is the insured Medical (General) History Medical History History ICD Code arthritis back,hip, knee pain high blood pressure thyroid chicken pox Menieres disease Surgical History Surgery Date(Month/Year) bladder suspension
--- NOTE | 2024-10-06 08:20 | A.OFFVIS_ITS ---
Intake Visit Reasons: right knee inj (80), last inj 02/18/23 Intake Note: Megan is a 69 year old female who presents today for a repeat injection for her right knee (80), last inj 02/18/23. Patient states that her last injection gave her relief and would like to repeat. Allergies No Known Allergies Allergy (Verified 10/06/24 08:28) HPI HPI right knee inj (80), last inj 02/18/23: Details: Ms. Rod is a 69-year-old female who presents to the office today for chronic right knee pain. She received a cortisone injection last on 02/18/2023 which gave her good relief. She would like to repeat injection while in the office today. [facility] Medical History Bladder disorder Other specified hypothyroidism Arthrosis Lipid disorder Hypertension, essential Surgical History History of bladder surgery History of tonsillectomy Family History Father HTN (hypertension) CVD (cardiovascular disease) Myocardial infarction Mother HTN (hypertension) Acute pancreatitis Brother No problems noted. Sister No problems noted. Sister No problems noted. Daughter No problems noted. 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 No ecchymosis, erythema, or edema. Full shoulder ROM in all planes. Negative cross-body reach. 4-5/5 strength with an empty can. Negative drop arm. NVI. Psych Appearance: well kempt Mental Status: mental status grossly normal Office Procedures AMB Joint Injection/Aspiration Joint Injection/Aspiration Primary Site: right knee Prep: site was prepped using aseptic technique, ethochloride spray was applied and injection warnings given Injected: 80 mg of, with 8 mL of (2% plain lidocaine) and in the joint Approach Used: anterolateral Procedure: there was some relief with the local anesthesia and other (Initially patient pulled away from the 1st injection, the needle was then change the area was prepped again. Ethyl chloride was then applied and 2nd injection was successful.) Coding - Large joint Procedure code (CPT) selection complete Assessment & Plan Assessment & Plan (1) Osteoarthritis of right knee: Code(s): M17.11 - Unilateral primary osteoarthritis, right knee Category: Medical Qualifiers: Osteoarthritis type: primary Qualified Code(s): M17.11 - Unilateral primary osteoarthritis, right knee Plan The patient was offered a cortisone injection in the right knee with a mg of DepoMedrol. The patient was explained the risks, benefits, and alternatives to receiving this injection. After receiving consent for the injection, the patient had the procedure done while in the office today. The patient tolerated the procedure well with no complications. Follow-up will be PRN, or sooner if needed Coding Level of Care Code Est Pt Level 3 (19867) Diagnoses Primary osteoarthritis of right knee M17.11 Osteoarthritis type: primary CPT Codes Coding - Large joint: 25832 - Large joint ([id number])
== END 2024-10-06 08:43 | disposition home or self-care (01) ==
LOC: HO.HOS 08:16
PROVIDERS: PCP Internal Medicine; Visit Provider Physician Assistant
DX: M17.11 Unilateral primary osteoarthritis, right knee (principal)
CPT/HCPCS: 20610; 99213

== ENCOUNTER → 2024-10-06 08:15 | Outpatient (BNVA) | payer MEDICARE, SELFPAY | PROVIDERS: PCP Internal Medicine; Visit Provider Physician Assistant | DX: M17.11 Unilateral primary osteoarthritis, right knee (principal) | CPT/HCPCS: 20610; 99212; J1010; J2003 ==

== ENCOUNTER 2024-10-08 09:02 | Outpatient (AMB) | payer MEDICARE, SELFPAY ==
[2024-10-08 09:06] VITALS: BP 152/88; PULSE 52; RESP 16; O2SAT 98; BMI 31.5
--- NOTE | 2024-10-08 09:06 | A.OFFPC_ITS ---
Vital Signs 10/08/24 09:06 10/08/24 09:14 Height 5 ft 7 in Weight 201 lb BMI 31.5 BP 152/88 H 136/82 Blood Pressure Location Lt brachial Rt brachial Position Sitting Sitting Respiration 16 Pulse 52 Pulse Source Pulse Oximeter Pulse Oximetry (%) 98 Oxygen Delivery Method Room Air Intake Visit Reasons: 3 months f/up Fish Processor Required: No Accompanied by: Self / Same As Patient Allergies No Known Allergies Allergy (Verified 10/08/24 09:06) Medication List - Last Reconciled 10/08/24 by Sofya Andujar MD acetaminophen (Tylenol Extra Strength) 1,000 mg PO Q6H PRN atenolol 50 mg PO DAILY 90 days celecoxib (Celebrex) 200 mg PO DAILY 90 days coenzyme Q10 200 mg PO DAILY escitalopram oxalate (Lexapro) 10 mg PO DAILY levothyroxine 137 mcg PO DAILY 90 days losartan 50 mg PO BID 90 days rosuvastatin (Crestor) 20 mg PO DAILY tizanidine 2 mg PO BEDTIME PRN 30 days tramadol 50 mg PO BID PRN 30 days Tobacco use date assessed: 10/08/24 Dental Screening Dental Screen Date: 06/23/24 HPI 3 months f/up HPI Details History - The patient is a 69-year-old female pr esenting for a regular follow-up visit/ ongoing care - Reports concerns about elevated blood pressure after receiving a cortisone injection in the knee on Friday. - Blood pressure was measured twice toda y with a second reading of 136/82. - Knee pain has caused increased use of Tramadol, taking it two times a day due to knee and joint discomfort. - Additional issues with vitamin D defic iency, previously identified as low, requiring supplementation. - Discusses participating in exercises t hrough an rian for strength, and managing household duties due to 's health. Medical History: - Hypertension - Hypothyroidism - Depression - Arthritis - Hyperlipidemia - Vitamin D deficiency Medications: - Atenolol 50 mg for hypertension - Celebrex for arthritis - Lexapro 10 mg for depression - Levothyroxine 137 mcg for hypothyroidi sm - Losartan 50 mg, twice daily for hypert ension - Rosuvastatin for hyperlipidemia - Tramadol for pain management related t o knee and joint discomfort - Intermittent use of muscle relaxer at night for knee pain relief Social History: - Participating in exercises via an rian on the phone - Responsible for caregiving tasks due t o the 's health condition - Daughter facing upcoming surgery for d iverticulitis - Granddaughter sustained an ACL injury, requiring surgery Family History: - Daughter with diverticulitis - Granddaughter with an ACL tear Diagnostic Results: - Labs (May): Complete Blood Count (CB C) within normal limits, kidney function normal, electrolytes normal, liver enzymes normal, blood sugar normal, cholesterol levels satisfactory, vitamin D levels low Problem List - Essential Hypertension - Hypothyroidism - Depression - Knee Pain due to Arthritis - Hyperlipidemia - Vitamin D Deficiency Patient Instructions - Continue monitoring blood pressure at home and consult if it consistently exceeds 140. - Continue taking prescribed vitamin D s upplements. - Take Tramadol as needed for knee and j oint pain. - Attend scheduled follow-up appointment in late January for a physical exam. Review of Systems - General: No fever no chills - Neurological: No headaches no dizziness - Ear nose throat: No sore throat no hearing difficulty no ear pain - Cardiovascular: No syncope, no chest pain, no palpitations - Gastrointestinal: No nausea vomiting or diarrhea - Endocrine: No polyuria polydipsia no heat intolerance - Genitourinary: No dysuria , no blood in urine Physical Exam General: No acute distress HEENT: No acute findings Neck: Supple Respiratory system: Able to talk in full sentences, no audible wheeze Cardiovascular: S1-S2 regular in rate and rhythm Gastrointestinal: No pain Extremities: Right knee and joints have been bothering the patient lately HEALTH AND SOCIAL CARE TEACHER: Alert awake oriented x3 motor sensory intact Skin: Normal turgor [facility] Medical History Bladder disorder Other specified hypothyroidism Arthrosis Lipid disorder Hypertension, essential Surgical History History of bladder surgery History of tonsillectomy Family History Father HTN (hypertension) CVD (cardiovascular disease) Myocardial infarction Mother HTN (hypertension) Acute pancreatitis Brother No problems noted. Sister No problems noted. Sister No problems noted. Daughter No problems noted. 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 Cognitive needs: No Hearing needs: No Vision needs: Yes Questionnaire Thrive Questionnaire Date Thrive assessed: 06/16/24 I am a: Patient What is your living situation today?: I have a steady place to live Within the past 12 months, did the food you bought not last and you didn't have the money to get more?: Never true Within the past 12 months, did you worry whether your food would run out before you got money to buy more?: Never true Do you have trouble paying for medicines?: No Do you have trouble getting transportation to medical appointments?: No Do you have trouble paying your heating and electricity bill?: No Do you have trouble taking care of your child, family member or friend?: I choose not to answer this question Do you have trouble with day-to-day activities such as bathing, preparing meals, shopping, managing finances, etc.?: No Are you currently unemployed and looking for a job?: No Are you interested in more education?: No Please select the resources that you would like help with: None Currently or been in a relationship where the following occur: No concerns reported THRIVE Score: 0 NIKKO-7 AMB Questionnaire NIKKO-7 Date NIKKO - 7 assessed: 06/23/24 Source: Developed by Drs. Benson Wilkerson, Kasey Harvey, Jeremy Rasmussen and colleagues, with an educational lakeisha from [employer]. Physical exam (Primary Care) Vital Signs: Last Vital Signs Pulse 52 10/08/24 09:06 Resp 16 10/08/24 09:06 BP 136/82 10/08/24 09:14 Pulse Ox 98 10/08/24 09:06 Oxygen Delivery Method Room Air 10/08/24 09:06 BMI result Body Mass Index 31.5 Tobacco/Smoking Status: Tobacco use Status Tobacco use date assessed 10/08/24 10/08/24 09:12 Patient Tobacco Use Status Former Tobacco user 10/08/24 09:12 e-Cigarette/Vaping Use Never Used 10/08/24 09:12 Thrive Assessment: Date of Thrive Assessment Date Thrive assessed 06/16/24 10/08/24 09:12 Currently or been in a relationship where the following occur: No concerns reported Coding Level of Care Code Est Pt Level 4 (22117) Complex EM visit Add On G2211 Diagnoses Hypertension, essential I10 Lipid disorder E78.9 Other specified hypothyroidism E03.8 Stress at home F43.9 Osteoarthritis involving multiple joints on both sides of body M15.9 Assessment & Plan Assessment & Plan (1) Hypertension, essential: Code(s): I10 - Essential (primary) hypertension Category: Medical (2) Lipid disorder: Code(s): E78.9 - Disorder of lipoprotein metabolism, unspecified Category: Medical (3) Other specified hypothyroidism: Code(s): E03.8 - Other specified hypothyroidism Category: Medical (4) Stress at home: Code(s): F43.9 - Reaction to severe stress, unspecified Category: Social Hx (5) Osteoarthritis involving multiple joints on both sides of body: Code(s): M15.9 - Polyosteoarthritis, unspecified Category: Medical Plan History - The patient is a 69-year-old female presenting for a regular follow-up visit/ ongoing care - Reports concerns about elevated blood pressure after receiving a cortisone injection in the knee on Friday. - Blood pressure was measured twice today with a second reading of 136/82. - Knee pain has caused increased use of Tramadol, taking it two times a day due to knee and joint discomfort. - Additional issues with vitamin D deficiency, previously identified as low, requiring supplementation. - Discusses participating in exercises through an rian for strength, and managing household duties due to 's health. Medical History: - Hypertension - Hypothyroidism - Depression - Arthritis - Hyperlipidemia - Vitamin D deficiency Medications: - Atenolol 50 mg for hypertension - Celebrex for arthritis - Lexapro 10 mg for depression - Levothyroxine 137 mcg for hypothyroidism - Losartan 50 mg, twice daily for hypertension - Rosuvastatin for hyperlipidemia - Tramadol for pain management related to knee and joint discomfort - Intermittent use of muscle relaxer at night for knee pain relief Social History: - Participating in exercises via an rian on the phone - Responsible for caregiving tasks due to the 's health condition - Daughter facing upcoming surgery for diverticulitis - Granddaughter sustained an ACL injury, requiring surgery Family History: - Daughter with diverticulitis - Granddaughter with an ACL tear Diagnostic Results: - Labs (May): Complete Blood Count (CBC) within normal limits, kidney function normal, electrolytes normal, liver enzymes normal, blood sugar normal, cholesterol levels satisfactory, vitamin D levels low Problem List - Essential Hypertension - Hypothyroidism - Depression - Knee Pain due to Arthritis - Hyperlipidemia - Vitamin D Deficiency Patient Instructions - Continue monitoring blood pressure at home and consult if it consistently exceeds 140. - Continue taking prescribed vitamin D supplements. - Take Tramadol as needed for knee and joint pain. - Attend scheduled follow-up appointment in late January for a physical exam. Orders: Orders Complete Blood Count Auto Diff Today E03.8 - Other specified hypothyroidism, E78.9 - Disorder of lipoprotein metabolism, unspecified, I10 - Essential (primary) hypertension TSH reflex Free T4 Today E03.8 - Other specified hypothyroidism, E78.9 - Disorder of lipoprotein metabolism, unspecified, I10 - Essential (primary) hypertension Lipid Panel Today E03.8 - Other specified hypothyroidism, E78.9 - Disorder of lipoprotein metabolism, unspecified, I10 - Essential (primary) hypertension Comprehensive [place]. Panel Fast Today E03.8 - Other specified hypothyroidism, E78.9 - Disorder of lipoprotein metabolism, unspecified, I10 - Essential (primary) hypertension Medications: Refilled tramadol 50 mg PO BID PRN 60 tabs 0RF pain back 30 days
[2024-10-08 09:14] VITALS: BP 136/82
--- OUTSIDE RECORDS SUMMARY | 2024-10-08 09:16 | XMS_ITS | Patient Health Record ---
Author Organization [facility] Address [address] [place] [address] Care Team Providers Care Biological Technical Officer Name Role Phone Con SANT[facility] Primary [facility] Provider Jo Ann Ramon Unavailable [phone] Allergies No Known Allergies Reason For Referral [...] primary osteoarthritis of the ankle and/or foot ([id number]) Primary osteoarthrit is, left ankle and foot (M19.072) Active confirmed Plan Of Treatment Pending Test Test Name Order Date X ray : Foot, left 3V 05/09/2020 Insurance Providers Payer Name Payer Address Payer Phone Subscriber Number Group Number Insured Name Patient Relationship to Insured Coverage Start Date Coverage End Date Blue Benefits [address] [address] [place] [address] [id number] 2 Megan Rod Self - patient is the insured Medical (General) History Medical History History ICD Code arthritis back,hip, knee pain high blood pressure thyroid chicken pox Menieres disease Surgical History Surgery Date(Month/Year) bladder suspension
--- OUTSIDE RECORDS SUMMARY | 2024-10-08 09:16 | XMS_ITS | Patient Health Record ---
Author Organization [facility] Address [address] [place] [address] Care Team Providers Care Hydrodynamics Professor Name Role Phone Alba(inactive) Salo SANTIAGO Primary Care Provider U Benson Lux Unavailable [phone] Reason For Referral No Information Medications Medication [...] Problem Status W/U Status Risk Notes Problem [id number] Encounter for screening for malignant neoplasm of colon (Z12.11) Active confirmed Problem [id number] Preprocedural examination (Z01.818) Active confirmed Plan Of Treatment Future Test Test Name Order Date COLONOSCOPY 01/22/2017 Insurance Providers Payer Name Payer Address Payer Phone Subscriber Number Group Number Insured Name Patient Relationship to Insured Coverage Start Date Coverage End Date [facility] [address] [place] [address] [phone] [id number] [employer] Self - patient is the insured Medical (General) History Medical History History ICD Code Denies [place],DM,CVA,Lung disease,renal dise ase Arthritis On Atenolol for palpitations Hypothyroidism Neg. screening colonoscopy i n 05/2007--diverticulosis and internal hemorrhoids Surgical History Surgery Date(Month/Year) Bladder suspension Tonsillectomy
== END 2024-10-08 10:05 | disposition home or self-care (01) ==
LOC: HO.HMCC 09:03
PROVIDERS: PCP Internal Medicine; Visit Provider Internal Medicine
DX: I10 Essential (primary) hypertension (principal); E78.9 Disorder of lipoprotein metabolism, unspecified; E03.8 Other specified hypothyroidism; F43.9 Reaction to severe stress, unspecified; M15.9 Polyosteoarthritis, unspecified

== ENCOUNTER → 2024-10-08 09:02 | Outpatient (BNVA) | payer MEDICARE, SELFPAY | PROVIDERS: PCP Internal Medicine; Visit Provider Internal Medicine | DX: I10 Essential (primary) hypertension (principal); E78.5 Hyperlipidemia, unspecified; E03.8 Other specified hypothyroidism; F43.9 Reaction to severe stress, unspecified; M15.9 Polyosteoarthritis, unspecified; E55.9 Vitamin D deficiency, unspecified; Z79.899 Other long term (current) drug therapy | CPT/HCPCS: 99212 ==

== ENCOUNTER 2024-11-08 10:49 | Outpatient (AMB) | payer MEDICARE, SELFPAY ==
[2024-11-08 10:59] VITALS: BP 130/78; PULSE 78; TEMP 36.7; O2SAT 97; BMI 31.8
--- NOTE | 2024-11-08 10:59 | AM.OFFWIN_ITS ---
Intake Vital Signs 11/08/24 10:59 Height 5 ft 7 in Weight 203 lb BMI 31.8 BP 130/78 Blood Pressure Location Lt brachial Position Sitting Pulse 78 Pulse Source Pulse Oximeter Temp 98.0 F Temp Source Oral Pulse Oximetry (%) 97 Oxygen Delivery Method Room Air Intake Visit Reasons: EP UTI? Intake Note: presents with urine frequency with little output, low back pain Patient Tobacco Use Status: Former Tobacco user Allergies No Known Allergies Allergy (Verified 11/08/24 11:08) Do you need a note to return to daycare/school/sports/work: No HPI HPI Comments History of Present Illness Details 69 y/o Female patient who presents to [facility] walk in clinic with c/o Urinary symptoms since Friday. Reports urinary frequency and urgency. Reports small amount of urine comes out. Reports mild burning with urination. C/o Lower back pain. Denies vaginal symptoms. Denies hematuria. Denies Fevers, chills, nausea or vomiting. [facility] Medical History Bladder disorder Other specified hypothyroidism Arthrosis Lipid disorder Hypertension, essential Surgical History History of bladder surgery History of tonsillectomy Family History Father HTN (hypertension) CVD (cardiovascular disease) Myocardial infarction Mother HTN (hypertension) Acute pancreatitis Brother No problems noted. Sister No problems noted. Sister No problems noted. Daughter No problems noted. 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 Cognitive needs: No Hearing needs: No Vision needs: Yes Review of Systems Const All systems reviewed & are unremarkable except as noted in HPI and below Physical Exam Vital Signs: Last Vital Signs Temp 98.0 F 11/08/24 10:59 Pulse 78 11/08/24 10:59 BP 130/78 11/08/24 10:59 Pulse Ox 97 11/08/24 10:59 Oxygen Delivery Method Room Air 11/08/24 10:59 BMI result Body Mass Index 31.8 Const General: no acute distress Nutritional Appearance: overweight Orientation/consciousness: patient oriented x3 General: Yes no CVA tenderness Back/Spine/Pelvis Back: no CVA tenderness Neuro General: patient oriented x3, gait normal and moves all extremities Psych Speech and movement: Normal speech and movement present Assessment & Plan Assessment & Plan (1) Frequency of micturition: Code(s): R35.0 - Frequency of micturition Plan: Urinalysis Negative. Increase fluid intake. NSAIDs for discomfort RTC if not better. Orders: Orders AMB Urinalysis Automated Today Z13.9 - Encounter for screening, unspecified Coding Level of Care Code Est Pt Level 4 (56131) Diagnoses Frequency of micturition R35.0 Time Spent (min) 20
--- OUTSIDE RECORDS SUMMARY | 2024-11-08 11:32 | XMS_ITS | Patient Health Record ---
Author Organization [facility] Address [address] [facility] [place] [address] Care Team Providers Care Family Life Counselor Name Role Phone Con [facility]ANT[facility]AG[facility], [facility] Primary Care Provider Jo Ann Ramon Unavailable [phone] Allergies No Known Allergies Reason For Referral [...] primary osteoarthritis of the ankle and/or foot ([id number]) Primary osteoarthrit is, left ankle and foot (M19.072) Active confirmed Plan Of Treatment Pending Test Test Name Order Date X ray : Foot, left 3V 05/09/2020 Insurance Providers Payer Name Payer Address Payer Phone Subscriber Number Group Number Insured Name Patient Relationship to Insured Coverage Start Date Coverage End Date Blue Benefits [address] [address] [place] [address] [id number] 2 Megan Rod Self - patient is the insured Medical (General) History Medical History History ICD Code arthritis back,hip, knee pain high blood pressure thyroid chicken pox Menieres disease Surgical History Surgery Date(Month/Year) bladder suspension
== END 2024-11-08 11:46 | disposition home or self-care (01) ==
PROVIDERS: PCP Internal Medicine; Visit Provider Nurse Practitioner Family
DX: R35.0 Frequency of micturition (principal); Z13.9 Encounter for screening, unspecified

== ENCOUNTER → 2024-11-08 10:49 | Outpatient (BNVA) | payer MEDICARE, SELFPAY | PROVIDERS: PCP Internal Medicine; Visit Provider Nurse Practitioner Family | DX: R35.0 Frequency of micturition (principal); R39.15 Urgency of urination | CPT/HCPCS: 81003; 99212 ==

== ENCOUNTER 2025-02-22 13:39 | Outpatient (AMB) | payer MEDICARE, SELFPAY ==
[2025-02-22 13:45] VITALS: BP 130/74; PULSE 68; O2SAT 97; BMI 32.4
--- NOTE | 2025-02-22 13:45 | MHC.PC.OV ---
Vital Signs 02/22/25 13:45 Height 5 ft 7 in Weight 207 lb BMI 32.4 BP 130/74 Blood Pressure Location Lt brachial Position Sitting Pulse 68 Pulse Source Pulse Oximeter Pulse Oximetry (%) 97 Intake Visit Reasons: Annual PE Allergies No Known Allergies Allergy (Verified 02/22/25 13:46) Medication List - Last Reconciled 02/22/25 by Sofya Andujar MD acetaminophen (Tylenol Extra Strength) 1,000 mg PO Q6H PRN atenolol 50 mg PO DAILY 90 days celecoxib (Celebrex) 200 mg PO DAILY 90 days coenzyme Q10 200 mg PO DAILY escitalopram oxalate (Lexapro) 10 mg PO .ocassionally levothyroxine 137 mcg PO DAILY 90 days losartan 50 mg PO BID 90 days rosuvastatin 20 mg PO DAILY 90 days tizanidine 2 mg PO BEDTIME PRN 30 days tramadol 50 mg PO BID PRN 30 days Tobacco use date assessed: 10/08/24 Fall risk assessment: 1 Fall in past year Last assessed Fall Risk: 02/22/25 Dental Screening Dental Screen Date: 06/23/24 HPI HPI Comments History of Present Illness Details History of Present Illness The patient is a 69 year old individual presenting for a physical exam. Osteoarthritis: - The patient takes celecoxib for joint aches and pain and uses tramadol as needed for knee and other joint pains, along with intermittent use of a muscle relaxer. - The patient experienced a fall in mid-December, which exacerbated the right knee pain. - The patient reports the knee has been stiff and bothers them a lot, with a sensation of creaking, which is consistent with osteoarthritis. - The patient has a history of receiving cortisone injections, with the last one being approximately four months ago, in September. - The patient reports the injections help but do not last forever. - A knee X-ray from 2022 showed tricompartmental osteoarthritic changes with no significant interval change compared with 2021. - The patient is established with an orthopedic physician home care assistant. Hypertension: - The patient's hypertension is managed with atenolol 50 mg and losartan 50 mg. - Blood pressure is stable, with a reading of 130/74 mmHg at today's visit. Hypothyroidism: - The patient is managed on levothyroxine 137 mcg for hypothyroidism. - The patient is due for blood tests to monitor thyroid function. Hyperlipidemia: - Hyperlipidemia is managed with rosuvastatin 20 mg. Anxiety: - The patient is prescribed escitalopram for anxiety but takes it only sometimes rather than daily. Lower Back Pain: - The patient reports significant lower back pain which sometimes tightens up. - The pain has been worse lately, which the patient attributes to recent physical activities like raking. - The patient takes tizanidine as a muscle relaxer for back pain. Medical History: - Hypertension - Osteoarthritis - Hypothyroidism - Hyperlipidemia - Vitamin D deficiency - History of cortisone injections in the knee - Anxiety Social History: - Activity: Reports recent activity including raking and working, which exacerbated back pain. - Insurance: The patient will be switching to [employer] starting in March. Health Maintenance - Colonoscopy: Last performed by Dr. Subramanian in 2017 with no polyps found; next screening is due in 2027. - Mammogram: Last performed in February of the previous year; has an appointment scheduled for March 29. - Lab work: The patient is due for blood tests, including CBC and metabolic profile, which were last done in May. - An order for blood tests placed in September was not completed. - Labs are needed to monitor thyroid function, kidney function, and liver enzymes. - Eye exam: The patient reports getting eyes checked once a year. - Vaccinations: Tetanus in 2018, Zoster in 2022, and pneumonia vaccine in 2022. - The patient has received the flu vaccine for the current season. - Follow-up: Advised to follow up in three months. [place] of Care - The patient sees a physician home care assistant, Gracie, in an orthopedic office for knee issues. - The patient's last colonoscopy was performed by Dr. Subramanian in 2017. - The patient no longer sees a human resources director. Medications - Atenolol 50 mg for hypertension - Celecoxib for joint pain - Levothyroxine 137 mcg for hypothyroidism - Losartan 50 mg for hypertension - Rosuvastatin 20 mg for hyperlipidemia - Tramadol as needed for knee and other joint pain - Intermittent muscle relaxer (tizanidine) for back pain - Escitalopram for anxiety, taken intermittently - Vitamin D supplementation Employment [employer] Medical History (Updated 02/22/25 @ 14:09 by Sofya Andujar MD) Bladder disorder Other specified hypothyroidism Arthrosis Lipid disorder Hypertension, essential Surgical History History of bladder surgery History of tonsillectomy Family History Father HTN (hypertension) CVD (cardiovascular disease) Myocardial infarction Mother HTN (hypertension) Acute pancreatitis Brother No problems noted. Sister No problems noted. Sister No problems noted. Daughter No problems noted. 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 Cognitive needs: No Hearing needs: No Vision needs: Yes Questionnaire Thrive Questionnaire Date Thrive assessed: 06/16/24 I am a: Patient What is your living situation today?: I have a steady place to live Within the past 12 months, did the food you bought not last and you didn't have the money to get more?: Never true Within the past 12 months, did you worry whether your food would run out before you got money to buy more?: Never true Do you have trouble paying for medicines?: No Do you have trouble getting transportation to medical appointments?: No Do you have trouble paying your heating and electricity bill?: No Do you have trouble taking care of your child, family member or friend?: I choose not to answer this question Do you have trouble with day-to-day activities such as bathing, preparing meals, shopping, managing finances, etc.?: No Are you currently unemployed and looking for a job?: No Are you interested in more education?: No Please select the resources that you would like help with: None Currently or been in a relationship where the following occur: No concerns reported THRIVE Score: 0 NIKKO-7 AMB Questionnaire NIKKO-7 Date NIKKO - 7 assessed: 06/23/24 Source: Developed by Drs. Benson Wilkerson, Kasey Harvey, Jeremy Rasmussen and colleagues, with an educational lakeisha from [employer]. Review of Systems Narrative Review of Systems - General: No fever no chills - Neurological: No headaches no dizziness - Ear nose throat: No sore throat no hearing difficulty no ear pain - Cardiovascular: No syncope, no chest pain, no palpitations - Gastrointestinal: No nausea vomiting or diarrhea - Endocrine: No polyuria polydipsia no heat intolerance - Genitourinary: No dysuria - Skin: No new complaints Physical exam (Primary Care) Vital Signs: Last Vital Signs Pulse 68 02/22/25 13:45 BP 130/74 02/22/25 13:45 Pulse Ox 97 02/22/25 13:45 BMI result Body Mass Index 32.4 Tobacco/Smoking Status: Tobacco use Status Tobacco use date assessed 10/08/24 02/22/25 13:46 Patient Tobacco Use Status Former Tobacco user 02/22/25 13:46 e-Cigarette/Vaping Use Never Used 02/22/25 13:46 Thrive Assessment: Date of Thrive Assessment Date Thrive assessed 06/16/24 02/22/25 13:46 Currently or been in a relationship where the following occur: No concerns reported Narrative Diagnostic results - Labs (May): CBC and metabolic profile were completed. - Labs: Vitamin D level was previously low. - Imaging (February of last year): Mammogram was performed. - Imaging (2022): A right knee X-ray showed tricompartmental osteoarthritic changes with no significant interval change from 2021. - Procedures (2017): Colonoscopy revealed no polyps. Physical Exam General: Cooperative, healthy appearing, comfortable, no acute distress Orientation: Patient oriented x3 Head: Normal to inspection Ears: Within normal limit visually Nose: Normal external nose present Face and sinus: Normal facial exam Eyes: Appearance normal, extraocular movement intact pupils reactive Neck: Normal visual inspection and supple Respiratory: Normal respiratory effort and able to speak in complete sentences. Clear to auscultation, no stridor Cardiovascular: S1 and S2 RRR GI: Normal to inspection. Soft to palpation and nontender Skin: Turgor normal, no acute findings Neuro: Patient oriented x3, motor sensory intact, balance intact, tandem pass Extremities: Normal to inspection, ROM intact both knees, no swelling no pain with palpation, . 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 Spinal osteoarthritis complication: without myelopathy or radiculopathy Class 1 obesity due to excess calories without serious comorbidity with body mass index (BMI) of 33.0 to 33.9 in adult E66.09; Z68.33 Body mass index: BMI 33.0-33.9 Obesity classification: adult class 1 (BMI 30 - 34.9) Serious obesity comorbidity presence: without serious comorbidity Assessment & Plan Assessment & Plan (1) Encounter for general adult medical examination with abnormal findings: Code(s): Z00.01 - Encounter for general adult medical examination with abnormal findings Category: Medical (2) Acute pain of right knee: Code(s): M25.561 - Pain in right knee Category: Medical (3) Hypertension, essential: Code(s): I10 - Essential (primary) hypertension Category: Medical (4) Lipid disorder: Code(s): E78.9 - Disorder of lipoprotein metabolism, unspecified Category: Medical (5) Other specified hypothyroidism: Code(s): E03.8 - Other specified hypothyroidism Category: Medical (6) Osteoarthritis involving multiple joints on both sides of body: Code(s): M15.9 - Polyosteoarthritis, unspecified Category: Medical (7) DJD (degenerative joint disease), lumbar: Code(s): M47.816 - Spondylosis without myelopathy or radiculopathy, lumbar region Category: Medical Qualifiers: Spinal osteoarthritis complication: without myelopathy or radiculopathy Qualified Code(s): M47.816 - Spondylosis without myelopathy or radiculopathy, lumbar region (8) Obesity due to excess calories: Code(s): E66.09 - Other obesity due to excess calories Category: Medical Qualifiers: Body mass index: BMI 33.0-33.9 Obesity classification: adult class 1 (BMI 30 - 34.9) Serious obesity comorbidity presence: without serious comorbidity Qualified Code(s): E66.09 - Other obesity due to excess calories; Z68.33 - Body mass index [BMI] 33.0-33.9, adult Plan Patient Instructions - Please get your blood tests done as soon as possible, preferably this week, as they are very important for checking your thyroid, kidney, and liver function. - Call your solutions specialist to schedule an appointment for evaluation of your right knee pain. - Continue taking your current daily medications as prescribed. - A prescription for tramadol will be sent to your pharmacy. You can take this as needed for pain. - For your anxiety medicine, escitalopram, it is recommended to take it every day for it to work effectively. You can discuss taking half a tablet daily if you prefer. - Keep your feet warm by wearing socks or slippers to help with the numbness in your toes. - Go to your scheduled mammogram appointment on March 29. - Plan to return for a follow-up visit in three months. Medications: Changed From tramadol 50 mg PO BID 30 days PRN 60 tabs 2RF pain back To tramadol 50 mg PO .qd PRN 30 tabs 1RF pain back 30 days
--- OUTSIDE RECORDS SUMMARY | 2025-02-22 17:31 | XMS_ITS | Patient Health Record ---
Author Organization [facility] Address [address] [place] [address] Care Team Providers Care Game Warden Name Role Phone Con SANT[facility], [facility] Primary Care Provider Jo Ann Ramon Unavailable [phone] Allergies No Known Allergies Reason For Referral [...] primary osteoarthritis of the ankle and/or foot ([id number]) Primary osteoarthrit is, left ankle and foot (M19.072) Active confirmed Plan Of Treatment Pending Test Test Name Order Date X ray : Foot, left 3V 05/09/2020 Insurance Providers Payer Name Payer Address Payer Phone Subscriber Number Group Number Insured Name Patient Relationship to Insured Coverage Start Date Coverage End Date Blue Benefits [address] [address] [place] [address] [id number] 2 Megan Rod Self - patient is the insured Medical (General) History Medical History History ICD Code arthritis back,hip, knee pain high blood pressure thyroid chicken pox Menieres disease Surgical History Surgery Date(Month/Year) bladder suspension
--- OUTSIDE RECORDS SUMMARY | 2025-02-22 17:31 | XMS_ITS | Patient Health Record ---
Author Organization [facility] Address [address] [place] [address] Care Team Providers Care Supervisor Turkey Farm Name Role Phone Alba(inactive) Salo SANTIAGO Primary Care Provider U Benson Lux Unavailable [phone] Reason For Referral No Information Medications Medication SIG (Take, Route, Frequency, Duration) Notes Start Date End Date Status Aleve 220 MG Tablet 1 tablet as needed Orally prn Active Atenolol 50 MG Tablet 1 tablet Orally On ce a day Active Levothyroxine Sodium 150 MCG Capsule 1 capsule on an empty stomach in the morning Orally Once a day Active CeleBREX 200 MG Capsule 1 capsule with f ood Orally Once a day Active Social History Tobacco Use: Social History Observation Description Date Details (start date - stop date) Former Smoker NA - NA Social History Drugs/Alcohol: Social Info Question Answer Notes Alcohol Screen Did you have a drink containing alcohol in the past year? Yes How often did you have a drink containing alcohol in the past year? Monthly or less (1 point) How many drinks did you have on a typical day when you were drinking in the past year? 1 or 2 drinks (0 point) How often did you have 6 or more drinks on one occasion in the past year? Never (0 point) Points 1 Interpretation Negative Tobacco Use: Social Info Question Answer Notes Tobacco Use/Smoking Patient is a former smoker How long has it been since you last smoked? > 10 years Additional Details Category Social Info Options Details Miscellaneous: Marital status: Occupation: [employer] Notes: Nonsmoker; no sig alcohol Problems Problem Type SNOMED Code ICD Code Onset Dates Problem Status W/U Status Risk Notes Problem Screening for malignant neoplasm of colon ([id number]) Encounter for screening for malignant neoplasm of colon (Z12.11) Active confirmed Problem Preprocedural examination (512593351623240) Preprocedural examination (Z01.818) Active confirmed Plan Of Treatment Future Test Test Name Order Date COLONOSCOPY 01/22/2017 Insurance Providers Payer Name Payer Address Payer Phone Subscriber Number Group Number Insured Name Patient Relationship to Insured Coverage Start Date Coverage End Date [facility] [address] [place] [phone] [id number] [employer] Self - patient is the insured Medical (General) History Medical History History ICD Code Denies [place],DM,CVA,Lung disease,renal dise ase Arthritis On Atenolol for palpitations Hypothyroidism Neg. screening colonoscopy i n 05/2007--diverticulosis and internal hemorrhoids Surgical History Surgery Date(Month/Year) Bladder suspension Tonsillectomy
== END 2025-02-22 14:11 | disposition home or self-care (01) ==
LOC: HO.HMCC 13:40
PROVIDERS: PCP Internal Medicine; Visit Provider Internal Medicine
DX: Z00.01 Encounter for general adult medical examination with abnormal findings (principal); M25.561 Pain in right knee; Z68.33 Body mass index [BMI] 33.0-33.9, adult; E66.09 Other obesity due to excess calories; I10 Essential (primary) hypertension; E78.9 Disorder of lipoprotein metabolism, unspecified; E03.8 Other specified hypothyroidism; M15.9 Polyosteoarthritis, unspecified; M47.816 Spondylosis without myelopathy or radiculopathy, lumbar region

== ENCOUNTER → 2025-02-22 13:39 | Outpatient (BNVA) | payer MEDICARE, SELFPAY | PROVIDERS: PCP Internal Medicine; Visit Provider Internal Medicine | DX: Z00.01 Encounter for general adult medical examination with abnormal findings (principal); I10 Essential (primary) hypertension; E78.5 Hyperlipidemia, unspecified; F41.9 Anxiety disorder, unspecified; M54.50 Low back pain, unspecified; M25.561 Pain in right knee; E03.8 Other specified hypothyroidism; M15.9 Polyosteoarthritis, unspecified; M47.816 Spondylosis without myelopathy or radiculopathy, lumbar region; E66.811 Obesity, class 1; E66.09 Other obesity due to excess calories; Z68.33 Body mass index [BMI] 33.0-33.9, adult | CPT/HCPCS: 99397 ==

== ENCOUNTER 2025-02-23 06:16 | Outpatient (REF) | payer MEDICARE, SELFPAY ==
--- OUTSIDE RECORDS SUMMARY | 2025-02-23 06:21 | XMS_ITS | Patient Health Record ---
Author Organization [facility] Address [address] [place] [address] Care Team Providers Care Seismograph Helper Name Role Phone Con SANT[facility]AG[facility], [facility] Primary Care Provider Jo Ann Ramon Unavailable [phone] Allergies No Known Allergies Reason For Referral [...] primary osteoarthritis of the ankle and/or foot (483566998) Primary osteoarthrit is, left ankle and foot (M19.072) Active confirmed Plan Of Treatment Pending Test Test Name Order Date X ray : Foot, left 3V 05/09/2020 Insurance Providers Payer Name Payer Address Payer Phone Subscriber Number Group Number Insured Name Patient Relationship to Insured Coverage Start Date Coverage End Date Blue Benefits [address] [address] [place] [address] [id number] 2 Megan Rod Self - patient is the insured Medical (General) History Medical History History ICD Code arthritis back,hip, knee pain high blood pressure thyroid chicken pox Menieres disease Surgical History Surgery Date(Month/Year) bladder suspension
--- OUTSIDE RECORDS SUMMARY | 2025-02-23 06:21 | XMS_ITS | Patient Health Record ---
Author Organization [facility] Address [address] [place] [id number] Care Team Providers Care Door To Door Fundraising Collector Name Role Phone Alba(inactive) Salo SANTIAGO Primary Care Provider U Benson Lux Unavailable [phone] Reason For Referral No Information Medications Medication [...] Problem Screening for malignant neoplasm of colon (601404311) Encounter for screening for malignant neoplasm of colon (Z12.11) Active confirmed Problem Preprocedural examination (316028998627176) Preprocedural examination (Z01.818) Active confirmed Plan Of Treatment Future Test Test Name Order Date COLONOSCOPY 01/22/2017 Insurance Providers Payer Name Payer Address Payer Phone Subscriber Number Group Number Insured Name Patient Relationship to Insured Coverage Start Date Coverage End Date [facility] [address] [place] [phone] [id number] [employer] Self - patient is the insured Medical (General) History Medical History History ICD Code Denies NC,DM,CVA,Lung disease,renal dise ase Arthritis On Atenolol for palpitations Hypothyroidism Neg. screening colonoscopy i n 05/2007--diverticulosis and internal hemorrhoids Surgical History Surgery Date(Month/Year) Bladder suspension Tonsillectomy
[2025-02-23 06:28] LABS: MANUAL DIFF FLAG NO
[2025-02-23 07:17] LABS: Hematocrit 39.4 % (37.0-47.0); Hemoglobin 12.8 g/dl (12.0-16.0); Imm Gran Abs Auto 0.01 X10*3/uL (0.00-0.03); Imm Gran Pct Auto 0.2 % (0.0-0.4); Lymphocytes Absolute Auto 2.0 X10*3/uL (1.2-4.9); Mean Corpuscular HGB Conc 32.5 g/dl (31.0-35.0); Mean Corpuscular Hemoglobin 29.4 pg (27.0-33.0); Mean Corpuscular Volume 90.6 fL (80.0-98.0); NRBC Abs Auto 0.000 X10*3/uL (0.0-0.012); NRBC Pct Auto 0.0 /100WBC (0.0-0.2); Platelet Count 220 X10*3/uL (160-400); Red Blood Count 4.35 X10*6/uL (4.20-5.50); White Blood Count 6.1 X10*3/uL (4.8-10.8)
[2025-02-23 08:07] LABS: Alanine Aminotransferase 22 U/L (0-31); Albumin Level 4.4 g/dL (3.5-5.0); Alkaline Phosphatase 52 U/L (39-117); Anion Gap 9 (12-20); Aspartate Amino Transferase 27 U/L (5-31); Blood Urea Nitrogen 18 mg/dL (9-16); Calcium 9.3 mg/dL (8.4-10.2); Carbon Dioxide 28 mmol/L (22-29); Chloride 109 mmol/L (96-108); Cholesterol 145 mg/dL (<200); Estimated Glomerular Filt Rate > 60; HDL Cholesterol 62 mg/dL (>40); Potassium 4.3 mmol/L (3.3-5.1); Sodium 142 mmol/L (135-145); Total Protein 6.9 g/dL (6.5-8.0); Triglycerides 73 mg/dL (<150)
== END 2025-02-23 06:17 | disposition home or self-care (01) ==
LOC: HO.LAB 06:16
PROVIDERS: PCP Internal Medicine; Visit Provider Internal Medicine
DX: I10 Essential (primary) hypertension (principal); E78.9 Disorder of lipoprotein metabolism, unspecified; E03.8 Other specified hypothyroidism
CPT/HCPCS: 36415; 80053; 80061; 84443; 85025

== ENCOUNTER 2025-03-14 11:14 | Outpatient (AMB) | payer MEDICARE, SELFPAY ==
--- NOTE | 2025-03-14 11:19 | A.OFFVIS_ITS ---
Intake Visit Reasons: right knee injection, last inj Intake Note: Megan is a 69 year old female who presents today for a repeat injection for her right knee, last inj 10/06/24. Patient states that her last injection gave her relief and would like to repeat. Allergies No Known Allergies Allergy (Verified 03/14/25 11:24) HPI HPI right knee injection, last inj: Details: Patient is a 69-year-old female who presents to the office today for repeat cortisone injection right knee. Last injection was in September of this year which gave her great relief. [facility] Medical History (Updated 02/22/25 @ 14:09 by Sofya Andujar MD) Bladder disorder Other specified hypothyroidism Arthrosis Lipid disorder Hypertension, essential Surgical History History of bladder surgery History of tonsillectomy Family History Father HTN (hypertension) CVD (cardiovascular disease) Myocardial infarction Mother HTN (hypertension) Acute pancreatitis Brother No problems noted. Sister No problems noted. Sister No problems noted. Daughter No problems noted. 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 No tenderness to palpation along the medial or lateral joint lines. Full knee extension and flexion. NVI. Psych Appearance: grossly normal Mental Status: mental status grossly normal Attitude: cooperative Office Procedures AMB Joint Injection/Aspiration Joint Injection/Aspiration Primary Site: Right Knee Prep: site was prepped using aseptic technique, ethochloride spray was applied and injection warnings given Injected: 40 mg of, 1% plain Lidocaine, 0.25% Bupivacaine and in the joint Procedure: The patient tolerated the procedure well Coding 28315 - Large joint Procedure code (CPT) selection complete Assessment & Plan Assessment & Plan (1) Osteoarthritis of right knee: Code(s): M17.11 - Unilateral primary osteoarthritis, right knee Category: Medical Qualifiers: Osteoarthritis type: primary Qualified Code(s): M17.11 - Unilateral primary osteoarthritis, right knee Plan The patient was offered a cortisone injection in right knee. The patient was explained the risks, benefits, and alternatives to receiving this injection. After receiving consent for the injection, the patient had the procedure done while in the office today. The patient tolerated the procedure well with no complications. The risks, benefits, and alternatives to a corticosteroid injection were discussed with the patient, including the potential benefits of decreased inflammation and pain, improved function, and diagnostic value. Risks were reviewed, including post-injection flare, skin or fat atrophy, transient facial flushing, temporary elevation in blood glucose, bruising, and rare but serious complications such as infection, tendon weakening or rupture, and cartilage damage with repeated injections. Procedure-related discomfort and possible vasovagal symptoms were also explained. Alternatives were reviewed, including NSAIDs, physical therapy, activity modification, bracing, ice/heat, weight management, hyaluronic acid injections when appropriate, PRP or other orthobiologics, oral steroids, surgery depending on pathology, and observation. The patient verbalized understanding and elected to proceed. After receiving consent for the injection, the patient had the procedure done while in the office today. The patient tolerated the procedure well with no complications. Follow-up will be PRN, or sooner if needed Coding Level of Care Code Est Pt Level 3 (08823) Add On Problem Visit Only Diagnoses Primary osteoarthritis of right knee M17.11 Osteoarthritis type: primary CPT Codes Coding - Large joint: 98073 - Large joint ([id number])
== END 2025-03-14 11:39 | disposition home or self-care (01) ==
LOC: HO.HOS 11:14
PROVIDERS: PCP Internal Medicine; Visit Provider Physician Assistant
DX: M17.11 Unilateral primary osteoarthritis, right knee (principal)
CPT/HCPCS: 20610; 99213

== ENCOUNTER → 2025-03-14 11:14 | Outpatient (BNVA) | payer MEDICARE, SELFPAY | PROVIDERS: PCP Internal Medicine; Visit Provider Physician Assistant | DX: M17.11 Unilateral primary osteoarthritis, right knee (principal) | CPT/HCPCS: 20610; 99212; J0665; J1100; J2003 ==

== ENCOUNTER 2025-03-29 07:20 | Outpatient (REF) | payer MEDICARE, SELFPAY ==
--- NOTE | ~2025-03-29 | MM_ITS ---
EXAMINATION: MM SCREENING DIGITAL BREAST TOMOSYNTHESIS, BILATERAL CLINICAL INFORMATION: Screening. Asymptomatic. COMPARISON: Mammography: Comparison is made with available priors TECHNIQUE: Digital breast mammography with tomosynthesis is performed in both the craniocaudal and mediolateral oblique views along with computer-aided detection (CAD). FINDINGS: There are scattered areas of fibroglandular density. Left: Focal asymmetry upper outer breast anterior depth. No suspicious calcifications or other abnormal findings. Right: There are no significant masses, abnormal calcifications, or other abnormalities. MM/MM tomosynthesis screening BI IMPRESSION: Additional imaging is recommended ASSESSMENT: BI-RADS Category 0: Incomplete - Need additional Imaging Evaluation RECOMMENDATION: 1. Additional views of the left breast. 2. Targeted ultrasound if warranted after review of the additional views. 3. Radiology department staff will contact the patient for additional imaging. Additional Imaging required Electronically signed by: Luz Mcclelland DO 03/30/2025 12:43 PM [place]
--- OUTSIDE RECORDS SUMMARY | 2025-03-29 09:01 | XMS_ITS | Patient Health Record ---
Author Organization [facility] Address [address] [place] [address] Care Team Providers Care Oxyhydrogen Welder Name Role Phone Con [facility]AG[facility], [facility] Primary [facility] Provider Jo Ann Ramon Unavailable [phone] Allergies No Known Allergies Reason For Referral [...] primary osteoarthritis of the ankle and/or foot (820412617) Primary osteoarthrit is, left ankle and foot (M19.072) Active confirmed Plan Of Treatment Pending Test Test Name Order Date X ray : Foot, left 3V 05/09/2020 Insurance Providers Payer Name Payer Address Payer Phone Subscriber Number Group Number Insured Name Patient Relationship to Insured Coverage Start Date Coverage End Date [employer] [address] [address] [place] [address] [id number] Megan Rod Self - patient is the insured Medical (General) History Medical History History ICD Code arthritis back,hip, knee pain high blood pressure thyroid chicken pox Menieres disease Surgical History Surgery Date(Month/Year) bladder suspension
--- OUTSIDE RECORDS SUMMARY | 2025-03-29 09:01 | XMS_ITS | Patient Health Record ---
Author Organization [facility] Address [address] [place] [address] Care Team Providers Care Isotope Technician Name Role Phone Alba(inactive) Salo SANTIAGO Primary Care Provider U Benson Lux Unavailable [phone] Reason For Referral No Information Medications Medication [...] Problem Screening for malignant neoplasm of colon (624327932) Encounter for screening for malignant neoplasm of colon (Z12.11) Active confirmed Problem Preprocedural examination ([id number]) Preprocedural examination (Z01.818) Active confirmed Plan Of Treatment Future Test Test Name Order Date COLONOSCOPY 01/22/2017 Insurance Providers Payer Name Payer Address Payer Phone Subscriber Number Group Number Insured Name Patient Relationship to Insured Coverage Start Date Coverage End Date [facility] [address] [place] [phone] [id number] [employer] Self - patient is the insured Medical (General) History Medical History History ICD Code Denies MS,DM,CVA,Lung disease,renal dise ase Arthritis On Atenolol for palpitations Hypothyroidism Neg. screening colonoscopy i n 05/2007--diverticulosis and internal hemorrhoids Surgical History Surgery Date(Month/Year) Bladder suspension Tonsillectomy
== END 2025-03-29 07:21 | disposition home or self-care (01) ==
LOC: HO.MAMMO 07:20
PROVIDERS: PCP Internal Medicine; Visit Provider Internal Medicine
DX: Z12.31 Encounter for screening mammogram for malignant neoplasm of breast (principal)
CPT/HCPCS: 77063; 77067

== ENCOUNTER → 2025-03-29 07:45 | Outpatient (BNV) | payer MEDICARE, SELFPAY | PROVIDERS: PCP Internal Medicine; Visit Provider Internal Medicine | DX: Z12.31 Encounter for screening mammogram for malignant neoplasm of breast (principal) | CPT/HCPCS: 77063; 77067 ==